=== PATIENT | female | born 1965 | race Caucasian/White ===

== ENCOUNTER 2016-06-10 16:01 | Inpatient (IN) | payer MEDICARE, MEDICAID ==
[~2016-06-10] VITALS: Ht 160 cm; Wt 120.5 kg
[~2016-06-10 16:01] MED LIST: ALBU8.5H4 IH; ALPR1TAB7 PO; CINA60TA PO; CLON1TAB PO; HYDR-656 PO; LANT500T PO; METO2.5T12 PO; MTH10T PO; NEPHVIT PO; ZYL100 PO
[2016-06-10 16:10] VITALS: BP 146/80; PULSE 79; RESP 16; O2SAT 100
[2016-06-10 17:36] LABS: BASOPHILS % (AUTO) 0.4 % (0-3); EOSINOPHILS % (AUTO) 3.7 % (0-5); MONOCYTES % (AUTO) 8.8 % (4-12); Mean Corpuscular Hemoglobin 27.9 pg (27.0-35.0); Mean Corpuscular Volume 84.7 fL (81-100); NEUTROPHILS % (AUTO) 63.3 % (40-74); Platelet Count 321 bil/L (150-400)
[2016-06-10 18:03] LABS: Magnesium 2.5 mg/dL (1.6-2.6)
--- NOTE | 2016-06-10 19:06 | ED.REPORT ---
HPI-General Illness Date of Service Jun 10, 2016 ED Provider: Dat Winn MD Patient is a 50 year old female with a history of ESRD on dialysis, hypertension , sleep apnea, and anxiety who presents to the ED after she developed diarrhea today, after feeling unwell since dialysis 5 days ago. She reports increased fatigue since that time, developing a mild cough, left ear pain, and a headache for the past few days. The patient states that she was last dialyzed on Monday, but she is meant to have it ,,. She chose not to attend dialysis on and due to her upper respiratory symptoms.. The patient was seen by a home health worker today, who told her to present to the ED since she appeared unwell. The patient is followed by Dr. Beck for nephrology, with Dr. Lagos serving as her primary care physician. Patient denies chest pain, shortness of breath, vomiting , runny nose, fever, or abdominal pain. Nursing Notes Stated Complaint: [facility] Chief Complaint: Female Abdominal Pain Nursing Notes Reviewed: Yes Allergies: Coded Allergies: codeine (Verified Allergy, Severe, RASH, HEADACHE, 03/20/15) hydrocodone (Verified Allergy, Severe, RASH, HEADACHE, 03/20/15) latex (Verified Allergy, Severe, RASH, HIVES, DIFFICULTY BREATHING, ) diclofenac sodium (Verified Allergy, Mild, diarrhea, vomiting, 03/20/15) Pork (Verified Allergy, Unknown, rash, headache, n/v, 03/20/15) colchicine (Verified Adverse Reaction, Severe, Diarrhea, N/V, 03/20/15) acetaminophen (Verified Adverse Reaction, Intermediate, Nausea, 06/10/16) Uncoded Allergies: EGGS (Allergy, Mild, rash, headache, n/v, 07/16/13) Scheduled Allopurinol (Allopurinol) 100 Mg Tablet 100 MG PO BID Alprazolam (Alprazolam) 1 Mg Tablet 3 MG PO MWF Cinacalcet HCl (Sensipar) 60 Mg Tablet 60 MG PO BID Clonazepam (Klonopin) 1 Mg Tablet 1 MG PO HS Lanthanum Carb Chew (Fosrenol Chew) 500 Mg Chew 500-1,500 MG PO TIDWM Methadone (Methadone) 10 Mg Tab 10 MG PO TID Metolazone (Metolazone) 2.5 Mg Tablet 10 MG PO BID Vitamin B Complex/Vit C (Gina-Theodora Tablet) 1 Tab Tab 1 TAB PO DAILY Scheduled PRN Albuterol HFA (Albuterol HFA) 8.5 Gm Hfa.aer.ad 1 PUFF IH Q4 PRN PRN For Shortness of Breath hydrOXYzine Hcl (HydrOXYzine Hcl) 25 Mg Tablet 25 MG PO TID PRN PRN For Itching General Time Seen by MD: 18:45 Chief Complaint Diarrhea, Not feeling well Hx Obtained From: Patient Arrived By: Ambulance Sudden in Onset?: No Onset Occurred: 9 - 12 hours ago Symptom Duration: Since onset Past Medical History Past Medical History 1. End-stage renal disease, on hemodialysis. 2. Chronic anemia likely secondary to underlying end-stage renal disease. 3. Hypertension. 4. Gout. 5. Obstructive sleep apnea (on continuous positive airway pressure). 6. Anxiety. 7. Renal osteodystrophy. 8. Asthma. Past Surgical History Left knee replacement Right hip replacement Left AV fistula Right AV fistula Bilateral carpel tunnel surgery Tubal ligation Left knee arthroscopy Nonfunctional arteriovenous fistula, anastomosis lesion, status post successful angioplasty Smoking History Never Smoker Social History Other Social History: Local resident Ambulatory Status Independent Review of Systems Full Review of Systems Constitutional: Reports: Fatigue, Denies: Fever Ears / Nose / Throat: Reports: Earache left, Nasal congestion Respiratory: Denies: Shortness of breath Cardiovascular: Denies: Chest pain GI: Reports: Diarrhea, Denies: Abdominal pain, Vomiting Complete sys rev & neg: except as marked. Physical Exam Vital Signs Vital Signs Date Time Temp Pulse Resp B/P Pulse Ox O2 Delivery O2 Flow Rate FiO2 06/10/16 21:05 88 20 147/85 98 Room Air 06/10/16 19:58 80 20 132/68 99 Room Air 06/10/16 16:10 36 79 16 146/80 100 Room Air Initial VS: Reviewed Head / Eyes: Atraumatic, Normocephalic, PERRL ENT: Conjunctiva normal, No scleral icterus Neck: Supple, Full range of motion Extremities: Vascular intact, Neuro intact, No swelling Skin: Warm, Dry, No cyanosis Neurologic: Alert, Oriented, Nonfocal Psychiatric: Mood/affect normal, Behavior normal, Normal thought content General/Constitutional: Awake, Alert, No acute distress Appearance / Presentation: Positive: Obese Head / Eyes: Normocephalic, PERRL, Conjunctiva NL ENT: Airway patent, Tympanic membs NL Respiratory / Chest: No respiratory distress, No rales, No rhonchi, No wheezing coarse breath sounds bilaterally Cardiovascular: Heart rate NL, Regular rhythm, No murmurs Abdomen: Soft, Non-tender, No guarding, No rebound Interpretation & Diagnostics Lab Results Interpretation Result Diagram: 06/10/16 1710 06/10/16 1930 Test 06/10/16 17:10 06/10/16 19:30 White Blood Count 8.1th/mm3 (3.8-10.1) Red Blood Count 3.80mil/mm3 (3.90-5.20) Hemoglobin 10.6g/dL (12.0-15.6) Hematocrit 32.2% (35.0-46.0) Mean Corpuscular Volume 84.7fL (81-100) Mean Corpuscular Hemoglobin 27.9pg (27.0-35.0) Mean Corpuscular Hemoglobin Concent 32.9% (32.0-37.0) Red Cell Distribution Width 14.1% (12.3-15.4) Platelet Count 321bil/L (150-400) Neutrophils (%) (Auto) 63.3% (40-74) Lymphocytes (%) (Auto) 23.2% (14-46) Monocytes (%) (Auto) 8.8% (4-12) Eosinophils (%) (Auto) 3.7% (0-5) Basophils (%) (Auto) 0.4% (0-3) Magnesium Level 2.5mg/dL (1.6-2.6) Total Bilirubin 0.2mg/dL (0.0-1.2) Aspartate Amino Transf (AST/SGOT) 19U/L (0-50) Alanine Aminotransferase (ALT/SGPT) 24U/L (0-32) Alkaline Phosphatase 283U/L (25-150) Total Protein 7.7g/dL (6.4-8.4) Albumin 3.8g/dL (3.4-5.0) Lipase 118U/L (13-60) Sodium Level 136mEq/L (134-144) Potassium Level 7.6mEq/L (3.5-5.2) Chloride Level 88mEq/L (97-108) Carbon Dioxide Level 19mmol/L (18-29) Blood Urea Nitrogen 94mg/dL (6-24) Creatinine 16.03mg/dL (0.57-1.00) Estimat Glomerular Filtration Rate 3mL/min (>59) Glucose Level 112mg/dL (60-99) Calcium Level 9.9mg/dL (8.5-10.1) ECG Interpretation ECG Interpretation: Normal sinus rhythm, rate of 78 Q waves in V1 no ST or T wave changes unchanged from prior EKG Time: 19:20 Interpreted by: ED physician X-Ray Chest Interpretation Chest Xray Interpretation: IMPRESSION: Source of cough is not found. Mildly reduced inspiratory volume. Dictated by: Bryan Bella M.D. on 06/10/2016 at 19:57 Approved by: Bryan Bella M.D. on 06/10/2016 at 19:57 Interpretation / Wet Read by: Interpret - Radiologist Re-Eval/Medical Decision Med Decision/Clinical Course 50-year-old female history of end-stage renal disease on MWF dialysis presenting with weakness 1 day. She reports prior URI symptoms earlier this week and therefore did not go to her dialysis on Monday. The URI symptoms have resolved. On arrival her potassium is 7.7. Repeat similar. No EKG changes. Discussed with nephrology who will dialyze urgently and requested calcium gluconate 1 g and insulin with dextrose which were given. Patient will be admitted to [facility]CC. Source of Hx: Old records Time of Eval: 21:00 Patient Status: Condition improved Re-Evaluation/Progress Note: Patient was informed that she will be admitted to the hospital for dialysis. Discussed lab, EKG, and chest x-ray. Patient understands and agrees with this plan. All questions were addressed. Consultation #1: Referral / Consult Name: Sanket Mensah MD Consulted With: Nephrology Call Returned at: 20:31 Hood Fitter: Will see patient, Agrees with eval, Agrees with plan Note: Spoke with Dr. Linares, nephrology, about the patient's case. She agrees with the plan to admit the patient to the hospital, to PCC. Start on Kayexalate, Calcium 1g, and insulin. Consultation #2: Referral / Consult Name: Abby Ross MD Consulted With: Hospitalist Call Returned at: 20:42 Hood Fitter: Will see patient, Agrees with eval, Agrees with plan, Accepts admit Note: Spoke with Dr. Ross, hospitalist, who agrees to accept admit. Counseled Regarding: Diagnosis, Lab results, Need for admission Discharge & Departure Primary Impression: Hyperkalemia Additional Impression: ESRD on dialysis Disposition: ADMITTED TO HOSPITAL Discharge Condition All VS Reviewed: Yes Condition: Stable Referrals: Dorothy Lagos MD (PCP) Hannah Beck MD Crit Care Except Billable Proc Time Spent: 30-74 minutes Services Performed: Patient management by me, Time spent at bedside, Reviewing test results, Reviewing imaging, Discussing patient care, Documentation in record, Time with fam/surrogate Scribe Attestation Portions of this note were transcribed by Allyson Walton. I, Dr. Winn personally performed the history, physical exam and medical decision-making; I reviewed and confirmed the accuracy of the information in the transcribed note. Signed by: Marcos Doyle, 06/10/2016 1949 copies to: Hannah Beck MD; Dorothy Lagos MD, Ben M MD Jun 10, 2016 19:06 Allyson Walton Jun 10, 2016 19:08
[2016-06-10 19:58] VITALS: BP 132/68; PULSE 80; RESP 20; O2SAT 99
--- NOTE | 2016-06-10 19:59 | DRSVH ---
PROCEDURE: X-RAY CHEST ONE VIEW, PORTABLE ([id number]) INDICATIONS: cough TECHNIQUE: One view of the chest was acquired. COMPARISON: [facility], , CHEST 1VW (PORTABLE), 07/16/2013, 11:44. FINDINGS: Surgical changes and devices: None. Lungs and pleura: No pleural effusions or pneumothorax. Lungs are clear. Mediastinum: Mediastinal contours appear normal. Heart size is normal. Bones and chest wall: No suspicious bony lesions. Overlying soft tissues appear unremarkable. IMPRESSION: Source of cough is not found. Mildly reduced inspiratory volume. Dictated by: Bryan Bella M.D. on 06/10/2016 at 19:57 Approved by: Bryan Bella M.D. on 06/10/2016 at 19:57
[2016-06-10] MEDS ORDERED: Calcium GLUCOnate 10% (Gm) 1 Gm/10 mL Inj IVPUSH PRN (20:40)
[2016-06-10] MEDS ORDERED: Insulin Human REGular-Omnicell 100 Unit/mL IV ONE (20:40)
[2016-06-10] MEDS ORDERED: Alum-Mag Hydrox-Simeth 30 mL Suspension PO PRN (20:45)
[2016-06-10] MEDS ORDERED: Ondansetron 2 mg/mL 2 mL Inj IVPUSH PRN (20:45)
[2016-06-10] MEDS ORDERED: Calcium GLUCOnate 10% 1 Gm/50 mL NS IV ONE ×2 (20:50)
[2016-06-10 21:05] VITALS: BP 147/85; PULSE 88; RESP 20; O2SAT 98
[2016-06-10 22:01] VITALS: BP 144/81; PULSE 87; RESP 20; O2SAT 96
[2016-06-10 22:04] VITALS: BP 153/90; PULSE 86
[2016-06-10] MEDS ORDERED: Albuterol-Ipratropium 3 mL Inhalation Solution NEB PRN (23:00)
--- NOTE | 2016-06-10 23:01 | PCM.HPMED ---
Subjective Date of Service Jun 10, 2016 Primary Provider: Admitting Physician: Abby Ross MD Primary Care Physician: Dorothy Lagos MD Attending Physician: Abby Ross MD Chief Complaint: Generalized weakness HISTORY was OBTAINED FROM PATIENT / MEDITECH NOTES History of present illness 50-year-old female, ESRD-voids average 2cup per day, diarrhea new onset today, skipped hemodialysis on Monday because of upper respiratory symptoms starting after monday HD including inner ear congestion/noise/nystagmus/cough, which are all resolving. Due to Ongoing fatigue, came to ER today. ongoing poor appetite. no n/v. no change in diet. + URI sick contacts. flu shot done this winter season. In the ER potassium 7.7, emergent hemodialysis now in the patel Review of Systems - none of the following - F/C/ dizziness / acid reflux / n/v / / bleeding/bruising / leg swelling / change in voiding / yeast infections / rash right hip pain prior hip replacement associated baseline cane Medication Allopurinol (Allopurinol) 100 Mg Tablet 100 MG PO BID Alprazolam (Alprazolam) 1 Mg Tablet 3 MG PO MWF Cinacalcet HCl (Sensipar) 60 Mg Tablet 60 MG PO BID Clonazepam (Klonopin) 1 Mg Tablet 1 MG PO HS Lanthanum Carb Chew (Fosrenol Chew) 500 Mg Chew 500-1,500 MG PO TIDWM Methadone (Methadone) 10 Mg Tab 10 MG PO TID Metolazone (Metolazone) 2.5 Mg Tablet 10 MG PO BID Vitamin B Complex/Vit C (Gina-Theodora Tablet) 1 Tab Tab 1 TAB PO DAILY Scheduled PRN Albuterol HFA (Albuterol HFA) 8.5 Gm Hfa.aer.ad 1 PUFF IH Q4 PRN PRN For Shortness of Breath hydrOXYzine Hcl (HydrOXYzine Hcl) 25 Mg Tablet 25 MG PO TID PRN PRN For Itching PMHx 1. End-stage renal disease, on hemodialysis. 2. Chronic anemia likely secondary to underlying end-stage renal disease. 3. Hypertension. 4. Gout. 5. Obstructive sleep apnea (on continuous positive airway pressure). 6. Anxiety. 7. Renal osteodystrophy. 8. Asthma. calciphylaxis Left knee replacement Right hip replacement Left AV fistula Right AV fistula Bilateral carpel tunnel surgery Tubal ligation Left knee arthroscopy Nonfunctional arteriovenous fistula, anastomosis lesion, status post successful angioplasty Smoking History Never Smoker FHX DM Allergies Coded Allergies: codeine (Verified Allergy, Severe, RASH, HEADACHE, 03/20/15) hydrocodone (Verified Allergy, Severe, RASH, HEADACHE, 03/20/15) latex (Verified Allergy, Severe, RASH, HIVES, DIFFICULTY BREATHING, ) diclofenac sodium (Verified Allergy, Mild, diarrhea, vomiting, 03/20/15) Pork (Verified Allergy, Unknown, rash, headache, n/v, 03/20/15) colchicine (Verified Adverse Reaction, Severe, Diarrhea, N/V, 03/20/15) acetaminophen (Verified Adverse Reaction, Intermediate, Nausea, 06/10/16) Uncoded Allergies: EGGS (Allergy, Mild, rash, headache, n/v, 07/16/13) PMH Social History Hx Alcohol Use: No Hx Substance Use: No Hx Tobacco Use: No Smoking Status: Never Smoker Exam Vital Signs Vital Sign - Last Date Time Temp Pulse Resp B/P Pulse Ox O2 Delivery O2 Flow Rate FiO2 06/10/16 22:01 36.9 87 20 144/81 96 Room Air Lab and Diagnostics Labs Exam on admission 2L NC while on HD NAD A and O x 3 mood affect WNL NC/AT no icterus no injected eyes EOMI PERRL /no pharyngeal lesions/ no oral lesions / hearing intact Supple neck CTAB equal chest rise / no accessory muscle use / speaks in full sentences / no rrw RRR S1 S2 / no mrg / 2+ radial pulses Soft nt nd + BS no hepatosplenomegaly trace crocker edema no cyanosis no ecchymosis of lower extremities No rash / no jaundice WHITEHEAD calciphylaxis felt on lateral thigh and pannus EKG SR flipped T in Right leads unchanged from 06/22/2015 CXR neg acute findings stool cx pending respiratory PCR/strep screen pending Result Diagram: 06/10/16 1710 06/10/16 1930 Assessment & Plan Active issues and reason for admission generalized weakness due to acute kidney injury on ESRD and diarrhea w/ preceding resolving bronchitis w/ resolved inner ear symptoms --augmentin, penidng strep/flu screen ESRD w/ hyperkalemia --emergent HD Diarrhea --pending stool culture Chronic issues known prior to admission, present on admission 1. End-stage renal disease, on hemodialysis. 2. Chronic anemia likely secondary to underlying end-stage renal disease. 3. Hypertension. 4. Gout. 5. Obstructive sleep apnea (on continuous positive airway pressure). 6. Anxiety. 7. Renal osteodystrophy. 8. Asthma. anxiety w/ HD intermittent chronic pain from calciphylaxis/right hip --prn duoneb/resume home meds Diet renal DVT prophylaxis heparin ambulate Code full Disposition inpateint Assessment and plan were discussed with patient VTE Mechanical Devices: Intermittant Pneumatic Abby Nicole MD Jun 10, 2016 23:01 Assessment & Plan Active issues and reason for admission generalized weakness due to acute kidney injury on ESRD and diarrhea w/ preceding resolving bronchitis w/ resolved inner ear symptoms --augmentin, penidng strep/flu screen ESRD w/ hyperkalemia --emergent HD Diarrhea --pending stool culture Chronic issues known prior to admission, present on admission 1. End-stage renal disease, on hemodialysis. 2. Chronic anemia likely secondary to underlying end-stage renal disease. 3. Hypertension. 4. Gout. 5. Obstructive sleep apnea (on continuous positive airway pressure). 6. Anxiety. 7. Renal osteodystrophy. 8. Asthma. anxiety w/ HD intermittent --prn duoneb/resume home meds Diet renal DVT prophylaxis heparin ambulate Code full Disposition inpateint Assessment and plan were discussed with patient VTE Mechanical Devices: Intermittant Pneumatic CD Abby Ross MD Jun 10, 2016 23:01
--- NOTE | 2016-06-11 | NUR ---
NEW ADMIT/DIALYSIS [facility] @ 2200 for immediate dialysis. Report given from ED. Pt had a potassium of 7.7 and a BUN of 94 in the ED. Admit questions were completed, nasal swab was sent to lab for influenza. Pt's vitals were stable, on RA sating high 90's. Pt A&Ox3, independent in the room, tele SR 80's, SL 20G in R wrist, which is patent. 2 hour dialysis was done with no issues. Pt resting comfortably with no complaints.
--- NOTE | 2016-06-11 00:26 | NUR ---
Dialysis note: 2 hrs tx. 3000 ml net UF per patient's request. Left upper arm fistula. Pls see DTR for VS details. Qb 500. No heparin given. O2 @ 2L via NC on. Tolerated tx, slept at intervals. Fistula needle sites clotted within 10 min. Report given to Tali GARCIA.
[2016-06-11] MEDS: Amoxicillin-Clav 875-125 mg Tablet PO SCH ×2 (00:33→08:03)
[2016-06-11 01:23] VITALS: BP 132/88; PULSE 90; RESP 20; O2SAT 94
[2016-06-11 03:30] LABS: BASOPHILS % (AUTO) 0.2 % (0-3); EOSINOPHILS % (AUTO) 4.2 % (0-5); MONOCYTES % (AUTO) 10.5 % (4-12); Mean Corpuscular Volume 83.6 fL (81-100); NEUTROPHILS % (AUTO) 60.8 % (40-74); Platelet Count 317 bil/L (150-400)
[2016-06-11 03:44] LABS: Phosphorus 9.4 mg/dL (2.5-4.9)
--- NOTE | 2016-06-11 04:09 | NUR ---
LAB VALUES Pt had morning labs that came back with a critical creatinine of 10.65, MD notified. No new orders, pt had dialysis earlier in the evening and had creatinine levels of 16.03 before dialysis. Vitals stable, pt A&Ox3, no other issues noted at this time.
[2016-06-11 04:18] VITALS: BP 144/71; PULSE 93; RESP 22; O2SAT 96
[2016-06-11 05:01] VITALS: PULSE 87
[2016-06-11 07:54] VITALS: BP 151/95; PULSE 90; RESP 19; O2SAT 97
[2016-06-11] MEDS: Lanthanum Carbonate 500 mg Chewable Tablet PO SCH ×3 (08:04→14:32)
[2016-06-11 10:05] VITALS: PULSE 95
--- NOTE | 2016-06-11 11:52 | NUR ---
Headache/ dialysis Patient complained of head fullness/ache 4-5/10 this morning. Patient was medicated with Tylenol 975 mg PO x1 and symptoms resolved within 30min. Consulted with dialysis Dorothy- patient was transported [place] [facility] [place] this morning. MD was made aware and will consider discharging patient home later today if stable.
--- NOTE | 2016-06-11 14:02 | PCM.DIMED ---
TYRELL OMER DO 06/11/16 1402: Discharge Instructions Date of Service Jun 11, 2016 Dates of Hospitalization Jun 10, 2016 at 21:05 Discharge Diagnosis Discharge Diagnosis 1. Hyperkalemia, present on admission, resolved. 2. End stage renal disease, present on admission, chronic. 3. Diarrhea, present on admission, resolved. 4. Hypertension, present on admission, chronic. 5. Gout, present on admission, chronic. 6. Obstructive sleep apnea, present on admission, chronic. 7. Anxiety, present on admission, chronic. 8. Calciphylaxis, present on admission, chronic. Medication Instructions No changes to your home medication regimen were changed during hospitalization. Diet Renal Diet Activity No restrictions Call your provider Fever or Chills, Shortness of breath, Bleeding, Chest pain, Excessive diarrhea Patient Instructions - Please be sure to make your next dialysis appointment on Monday. - Your symptoms have all resolved at this time and are likely secondary to missing your dialysis appointment. - Follow up with Dr. Lagos in 1 week. - Follow up with Dr. Beck as scheduled. Follow-up Provider: Dorothy Lagos MD Follow-up with PCP in: 1 week Provider: Hannah Beck MD Follow-up in: Other (As scheduled) Trae Chaidez MD 06/11/16 2107: Discharge Instructions Attending's Statement The patient was seen and examined together with Dr. Omer on 06/11/2016 and I agree with the history, exam and plan as outlined in the note above. . TYRELL OMER DO Jun 11, 2016 14:02 Trae Chaidez MD Jun 11, 2016 21:07
[2016-06-11] MEDS ORDERED: Pantoprazole 20 mg ER24 Tablet PO ONE (14:30)
--- NOTE | 2016-06-11 14:47 | CONS ---
[address] [address] CONSULTATION REPORT PATIENT: ELIZABETH TERAN : 1965 MR#: [id number] ADMIT: 06/10/2016 JOB ID: [id number] DATE OF SERVICE: 06/11/2016 NEPHROLOGY CONSULTATION: REQUESTING PHYSICIAN: Dr. Abby Ross REASON FOR CONSULTATION: Management of hyperkalemia and end-stage renal failure. CHIEF COMPLAINT: Generalized weakness. PRESENT ILLNESS: This is a 50-year-old lady with significant past medical history of end-stage renal disease on hemodialysis every Monday, Monday and Monday, hypertension, obesity, anemia in chronic kidney disease and calciphylaxis presented to the hospital with a complaint of malaise. The patient started having flu-like symptoms including body pain, dry cough and diarrhea one week prior to the admission. She has missed dialysis on Monday and Monday. She came to the hospital with a complaint of body weakness. The patient did receive the flu vaccine for this season. She has not seen any physician during her sickness at this time. She came to the emergency department and requested for dialysis. Her initial blood work showed a potassium of 7.7, the repeat one was 7.6, renal was consulted to arrange for urgent dialysis given severely high potassium level. The patient received dialysis last night for two hours. A repeat potassium came down to 5.0. Currently the patient on the hemodialysis. We are running 1 potassium bath. He has no chest pain. No shortness of breath at the moment. She has felt better. She no longer has diarrhea. PAST MEDICAL HISTORY: 1. End-stage renal disease, on hemodialysis every Monday, Monday, and Monday x6 years. He is a patient of Dr. Kohler. 2. Anemia in chronic kidney disease. 3. Renal osteodystrophy. 4. Gout. 5. Sleep apnea. 6. Calciphylaxis. PAST SURGICAL HISTORY: 1. Status post left knee replacement. 2. Status post left hip replacement. 3. Status post kidney biopsy. 4. Status post multiple AV fistula creations. 5. Bilateral carpal tunnel surgery. 6. Tubal ligation. FAMILY HISTORY: Positive for diabetes. SOCIAL HISTORY: Denies current use of alcohol, tobacco or illicit drugs. ALLERGIES: PORK, ACETAMINOPHEN, CODEINE, COLCHICINE, DICLOFENAC, HYDROCODONE, LATEX. REVIEW OF SYSTEMS: Constitutional: No fever. Positive for chills and body aches. HEENT: No headaches. No blurry vision. Cardiovascular: No chest pain or shortness of breath. Pulmonary: Positive for dry cough. No hemoptysis. GI: Poor appetite. No nausea, vomiting. : No dysuria. The patient makes urine, one cup a day. Skin: No rashes. No excoriation. Hematology: No active bleeding. PHYSICAL EXAM: Vitals: Temperature 36.5, pulse 90, respiratory rate 19, blood pressure 151/95, O2 sat 97% on room air. General appearance: Awake, alert and oriented x3. No acute distress. HEENT: Mild pallor. No jaundice. No JVD. No lymphadenopathy. No thyroid enlargement. Heart: Regular rhythm. Normal S1, S2. No murmurs, rubs or gallops. Lungs: Clear to auscultation bilaterally. Abdomen: Soft, obese, active bowel sounds. Nontender, nondistended. No hepatosplenomegaly. Extremities: No edema, cyanosis or clubbing of fingers. Left AV fistula with good thrill. LABORATORY: Sodium 136, potassium 5.0, chloride 90, bicarbonate 23, BUN 15, creatinine 10.65, calcium 10.3, phosphorus 9.4. ASSESSMENT: 1. Hyperkalemia. The patient received hemodialysis last night. Repeat potassium came down to 5.0. The patient is now on another dialysis. 2. End-stage renal disease, on hemodialysis every Monday, Monday and Monday. She missed dialysis x2 last week given history of viral symptoms. 3. Hyperphosphatemia, hypercalcemia with history of calciphylaxis. 4. Continue current phosphate binder and Sensipar. The patient will follow up with her industrial engineering technologist outpatient to readjust her phosphate binder and to monitor PTH level. 5. Hypertension. 6. Obesity. 7. Sleep apnea. PLAN: Per renal standpoint, if patient is stable after hemodialysis, she can be discharged home. Thank you for the consultation.
--- NOTE | 2016-06-11 14:58 | NUR ---
Evaluation completed. Please go to "Notes" then click on "Assessments and Notes" (bottom left corner of screen). Then select appropriate discipline tab on top of screen.
--- NOTE | 2016-06-11 15:51 | NUR ---
Dialysis note 3 hr HD tx. 1 k bath. 2 15 g buttonhole needles to ANSHU fistula. QB decreased thru tx for increasing venous pressures. See DTR for complete vitals. Pt rested thru tx. without complaints. Gauze only and pt held sites post tx. Returned to floor stable.
--- NOTE | 2016-06-11 16:29 | NUR ---
Heart burn/discharge After dialysis upon returning to her room patient stated having heart burn. She stated that she gets heart sanchez often and takes Prilosec for it- MD was made aware and ordered Protonix PO one dose. Med was given and patient stated 20min after that the discomfort was resolving. Patient was also offered an afternoon snack witch help and after eating patient state that the symptoms of heart burn resolved. Patient was discharged home in stable condition. Patient verbalized understanding of verbal and written discharge home instructions regarding medications follow up appointments, dialysis appointment on Monday06-13-16 and the importance of keeping her dialysis schedule without skipping appointments, general s/s of hyperkalemia and symptom to seek immediate medical care. Right wrist saline lock was removed intact prior to discharge. Patient was transferred to her friends car by wheelchair and accompanied by staff.
--- NOTE | 2016-06-12 16:39 | PCM.DC.MED ---
Discharge Summary Date of Service Jun 12, 2016 Dates of Hospitalization Date of Hospital Admission Jun 10, 2016 at 21:05 Date of Discharge: Jun 11, 2016 Providers: Admitting Physician: Abby Ross MD Primary Care Physician: Dorothy Lagos MD Attending Physician: Abby Ross MD Diagnosis at Time of Discharge Diagnosis at Time of Discharge 1. Hyperkalemia, present on admission, resolved. 2. End stage renal disease, present on admission, chronic. 3. Diarrhea, present on admission, resolved. 4. Hypertension, present on admission, chronic. 5. Gout, present on admission, chronic. 6. Obstructive sleep apnea, present on admission, chronic. 7. Anxiety, present on admission, chronic. 8. Calciphylaxis, present on admission, chronic. Consultations Dr. Mensah - Hooker On Brief History Per Dr. Mensah's H&P: This is a 50-year-old lady with significant past medical history of end-stage renal disease on hemodialysis every Monday, Monday and Monday, hypertension, obesity, anemia in chronic kidney disease and calciphylaxis presented to the hospital with a complaint of malaise. The patient started having flu-like symptoms including body pain, dry cough and diarrhea one week prior to the admission. She has missed dialysis on Monday and Monday. She came to the hospital with a complaint of body weakness. The patient did receive the flu vaccine for this season. She has not seen any physician during her sickness at this time. She came to the emergency department and requested for dialysis. Her initial blood work showed a potassium of 7.7, the repeat one was 7.6, renal was consulted to arrange for urgent dialysis given severely high potassium level. The patient received dialysis last night for two hours. A repeat potassium came down to 5.0. Currently the patient on the hemodialysis. We are running 1 potassium bath. She has no chest pain. No shortness of breath at the moment. She has felt better. She no longer has diarrhea. Hospital Course 1. Hyperkalemia, present on admission, resolved. - Potassium on admission 7.9. - No EKG changes. - Received urgent dialysis. - Potassium normalized. 2. End stage renal disease, present on admission, chronic. - Missed two dialysis sessions. - BUN and Creatinine elevated above baseline. - Urgent dialysis as above. - Nephrology followed. Appreciated time and expertise. 3. Diarrhea, present on admission, resolved. 4. Hypertension, present on admission, chronic. - Continued home medication regimen. 5. Gout, present on admission, chronic. - Continued home medication regimen. 6. Obstructive sleep apnea, present on admission, chronic. - Monitored on continuous pulse oximetry. - Supplemental oxygen as needed. 7. Anxiety, present on admission, chronic. 8. Calciphylaxis, present on admission, chronic. Exam Vital Signs (Last) Date Time Temp Pulse Resp B/P Pulse Ox O2 Delivery O2 Flow Rate FiO2 06/11/16 10:05 95 06/11/16 07:54 36.5 19 151/95 97 Room Air Exam General: No acute distress. Well-developed, well-nourished, appropriately interactive HEENT: Normocephalic, atraumatic. External ears without defect. Pupils equal, round, and reactive to light and accommodation. Oral mucosa moist. Neck: Supple with full range of motion. No jugular venous distension. No bruits. No lymphadenopathy or thyromegaly. Cardiovascular: Regular rate and rhythm with no murmurs, rubs, or gallops appreciated Pulmonary: Clear to auscultation bilaterally. Normal respiratory effort with no use of accessory muscles. Abdomen: Bowel tones present. Obese. Soft, mild tenderness to palpation diffusely, nondistended. No hepatosplenomegaly or masses appreciated. Extremities: Trace pretibial edema. Left AV fistula with thrill. No clubbing, cyanosis, or lymphadenopathy appreciated. Neurological: Cranial nerves grossly intact. Normal muscle strength, tone, and bulk. Reflexes, coordination, and sensory function within normal limits. No known gait impairment. Psychiatric: Normal mood and affect. Alert and oriented to person, place, and time. Test 06/10/16 17:10 06/10/16 19:30 06/11/16 02:51 Magnesium Level 2.5mg/dL (1.6-2.6) Total Bilirubin 0.2mg/dL (0.0-1.2) Aspartate Amino Transf (AST/SGOT) 19U/L (0-50) Alanine Aminotransferase (ALT/SGPT) 24U/L (0-32) Alkaline Phosphatase 283U/L (25-150) Total Protein 7.7g/dL (6.4-8.4) Lipase 118U/L (13-60) Estimat Glomerular Filtration Rate 3mL/min (>59) White Blood Count 6.4th/mm3 (3.8-10.1) Red Blood Count 3.54mil/mm3 (3.90-5.20) Hemoglobin 9.9g/dL (12.0-15.6) Hematocrit 29.6% (35.0-46.0) Mean Corpuscular Volume 83.6fL (81-100) Mean Corpuscular Hemoglobin 28.0pg (27.0-35.0) Mean Corpuscular Hemoglobin Concent 33.4% (32.0-37.0) Red Cell Distribution Width 14.2% (12.3-15.4) Platelet Count 317bil/L (150-400) Neutrophils (%) (Auto) 60.8% (40-74) Lymphocytes (%) (Auto) 24.0% (14-46) Monocytes (%) (Auto) 10.5% (4-12) Eosinophils (%) (Auto) 4.2% (0-5) Basophils (%) (Auto) 0.2% (0-3) Sodium Level 136mEq/L (134-144) Potassium Level 5.0mEq/L (3.5-5.2) Chloride Level 90mEq/L (97-108) Carbon Dioxide Level 23mmol/L (18-29) Blood Urea Nitrogen 52mg/dL (6-24) Creatinine 10.65mg/dL (0.57-1.00) Glucose Level 106mg/dL (60-99) Calcium Level 10.3mg/dL (8.5-10.1) Phosphorus Level 9.4mg/dL (2.5-4.9) Albumin 3.4g/dL (3.4-5.0) Discharge Medications Discharge Medications Allopurinol (Allopurinol) 100 Mg Tablet 100 MG PO BID (Reported) Alprazolam (Alprazolam) 1 Mg Tablet 3 MG PO MWF (Reported) Cinacalcet HCl (Sensipar) 60 Mg Tablet 60 MG PO BID (Reported) Clonazepam (Klonopin) 1 Mg Tablet 1 MG PO HS (Reported) Lanthanum Carb Chew (Fosrenol Chew) 500 Mg Chew 500-1,500 MG PO TIDWM (Reported ) Methadone (Methadone) 10 Mg Tab 10 MG PO TID (Reported) Metolazone (Metolazone) 2.5 Mg Tablet 10 MG PO BID (Reported) Vitamin B Complex/Vit C (Gina-Theodora Tablet) 1 Tab Tab 1 TAB PO DAILY (Reported) As needed Albuterol HFA (Albuterol HFA) 8.5 Gm Hfa.aer.ad 1 PUFF IH Q4 PRN PRN For Shortness of Breath (Reported) hydrOXYzine Hcl (HydrOXYzine Hcl) 25 Mg Tablet 25 MG PO TID PRN PRN For Itching (Reported) Additional med instructions No changes to your home medication regimen were changed during hospitalization. Followup Plan Discharge Diet: Renal Diet Discharge Activity: No restrictions Patient Instructions - Please be sure to make your next dialysis appointment on Monday. - Your symptoms have all resolved at this time and are likely secondary to missing your dialysis appointment. - Follow up with Dr. Lagos in 1 week. - Follow up with Dr. Beck as scheduled. Follow-up Provider: Dorothy Lagos MD Follow-up with PCP in: 1 week Provider: Hannah Beck MD Follow-up in: Other (As scheduled) Time spent Greater than 30 minutes was spent in preparation of discharge and greater than 50%of that time was dedicated to patient counseling and coordination of care. . Attending Statement The patient was seen and examined together with Dr. Meyer on 06/12/2016 and I agree with the history, exam and plan as outlined in the note above. . copies to: Hannah Beck MD; Dorothy Lagos MD, BETHANY A DO Jun 12, 2016 16:34 Trae Chaidez MD Jun 12, 2016 18:17
== END 2016-06-11 15:54 | disposition home or self-care (01) | DRG 640 ==
LOC: SED 16:01 → PCC 21:05
PROVIDERS: ADMIT Urology; ATTEND Urology
PROC: 5A1D60Z (ICD-10-PCS; principal; 2016-06-10)
DX: E87.5 Hyperkalemia (principal); N18.6 End stage renal disease; I12.0 Hypertensive chronic kidney disease with stage 5 chronic kidney disease or end stage renal disease; F41.9 Anxiety disorder, unspecified; M10.9 Gout, unspecified; D63.1 Anemia in chronic kidney disease; E83.59 Other disorders of calcium metabolism; G47.33 Obstructive sleep apnea (adult) (pediatric); R19.7 Diarrhea, unspecified; Z99.2 Dependence on renal dialysis; Z79.51 Long term (current) use of inhaled steroids

== ENCOUNTER 2016-06-29 11:48 | Emergency (ER) | payer MEDICARE, MEDICAID ==
[~2016-06-29] VITALS: Ht 160 cm; Wt 117.5 kg
[2016-06-29 11:50] VITALS: BP 117/75; PULSE 74; RESP 16; O2SAT 100
--- NOTE | 2016-06-29 11:54 | ED.REPORT ---
HPI-Dyspnea / Wheezing Date of Service Jun 29, 2016 ED Provider: Dr. Fox Pt is a 50 y/o female w/ a hx of ESRD on hemodialysis, HTN, presenting to the ED via EMS c/o flu-like symptoms onset 6 days ago. She c/o cough, sore throat, myalgia, chills, orthostatic lightheadedness, headache, diarrhea. Pt denies nausea, vomiting, fever, fluid overload. Her son was an Influenza contact. She has not been dialyzed for 7 days. She called EMS today because of generalized weakness. Nursing Notes Stated Complaint: COUGH Chief Complaint: FLU/Cold Symptoms Nursing Notes Reviewed: Yes Allergies: Coded Allergies: codeine (Verified Allergy, Severe, RASH, HEADACHE, 06/29/16) hydrocodone (Verified Allergy, Severe, RASH, HEADACHE, 06/29/16) latex (Verified Allergy, Severe, RASH, HIVES, DIFFICULTY BREATHING, 06/29/16 ) diclofenac sodium (Verified Allergy, Mild, diarrhea, vomiting, 06/29/16) Pork (Verified Allergy, Unknown, rash, headache, n/v, 06/29/16) colchicine (Verified Adverse Reaction, Severe, Diarrhea, N/V, 06/29/16) acetaminophen (Verified Adverse Reaction, Intermediate, Nausea, 06/29/16) Uncoded Allergies: EGGS (Allergy, Mild, rash, headache, n/v, 07/16/13) Scheduled Allopurinol (Allopurinol) 100 Mg Tablet 100 MG PO BID Alprazolam (Alprazolam) 1 Mg Tablet 3 MG PO MWF Cinacalcet HCl (Sensipar) 60 Mg Tablet 60 MG PO BID Clonazepam (Klonopin) 1 Mg Tablet 1 MG PO HS Lanthanum Carb Chew (Fosrenol Chew) 500 Mg Chew 500-1,500 MG PO TIDWM Methadone (Methadone) 10 Mg Tab 10 MG PO TID Metolazone (Metolazone) 2.5 Mg Tablet 10 MG PO BID Vitamin B Complex/Vit C (Gina-Theodora Tablet) 1 Tab Tab 1 TAB PO DAILY Scheduled PRN Albuterol HFA (Albuterol HFA) 8.5 Gm Hfa.aer.ad 1 PUFF IH Q4 PRN PRN For Shortness of Breath hydrOXYzine Hcl (HydrOXYzine Hcl) 25 Mg Tablet 25 MG PO TID PRN PRN For Itching General Time Seen by MD: 11:53 Chief Complaint Other (flu-like) Hx Obtained From: Patient, EMS Arrived By: Ambulance Sudden in Onset?: No Onset Occurred: 6 days ago Symptom Duration: Since onset Severity: Current: No pain currently Severity: Maximum: No pain Similar Sx Previous: No Past Medical History Past Medical History 1. End-stage renal disease, on hemodialysis. 2. Chronic anemia likely secondary to underlying end-stage renal disease. 3. Hypertension. 4. Gout. 5. Obstructive sleep apnea (on continuous positive airway pressure). 6. Anxiety. 7. Renal osteodystrophy. 8. Asthma. Past Surgical History Left knee replacement Right hip replacement Left AV fistula Right AV fistula Bilateral carpel tunnel surgery Tubal ligation Left knee arthroscopy Nonfunctional arteriovenous fistula, anastomosis lesion, status post successful angioplasty Smoking History Never Smoker Social History Other Social History: Local resident Ambulatory Status Independent Review of Systems Constitutional: Reports: Chills, Weakness - generalized, Denies: Fever Ears / Nose / Throat: Reports: Sore throat Respiratory: Reports: Non-productive cough, Denies: Shortness of breath Cardiovascular: Denies: Chest pain, Edema Musculoskeletal: Reports: Myalgia Complete sys rev & neg: except as marked. GI: Reports: Diarrhea, Denies: Abdominal pain, Nausea, Vomiting Neurologic: Reports: Headache, Lightheaded Physical Exam Initial Vital Signs Vital Signs (First) Date Time Temp Pulse Resp B/P Pulse Ox O2 Delivery O2 Flow Rate FiO2 06/29/16 11:50 36.6 74 16 117/75 100 Room Air Initial VS: Reviewed, Vital signs normal Head / Eyes: Atraumatic, Normocephalic, PERRL ENT: Mucous membranes moist, Conjunctiva normal, No scleral icterus Abdomen / GI: Soft, Non-tender, No guarding, No rebound, No distention Extremities: Vascular intact, Neuro intact, No swelling, No tenderness Skin: Warm, Dry, No cyanosis Neurologic: Alert, Oriented, Nonfocal Psychiatric: Mood/affect normal, Behavior normal, Normal thought content General/Constitutional: Awake, Alert, No acute distress, Cooperative, Not toxic appearing Appearance / Presentation: Positive: Obese No signs of fluid overload Neck: Atraumatic, Supple, No meningismus, Full range of motion Respiratory / Chest: Atraumatic, Breath sounds NL, Breath sounds = bilat, No respiratory distress, No rales, No rhonchi, No wheezing, No retractions, No stridor, No chest tenderness, No chest wall deformity, No crepitus Cardiovascular: Heart rate NL, Regular rhythm, Heart sounds NL, No gallop, No murmurs, No rubs, Cap refill not delayed, Peripheral circulation NL Interpretation & Diagnostics Lab Results Interpretation Result Diagram: 06/29/16 1150 06/29/16 1150 Test 06/29/16 11:50 White Blood Count 6.2th/mm3 (3.8-10.1) Red Blood Count 3.73mil/mm3 (3.90-5.20) Hemoglobin 10.4g/dL (12.0-15.6) Hematocrit 31.2% (35.0-46.0) Mean Corpuscular Volume 83.6fL (81-100) Mean Corpuscular Hemoglobin 27.9pg (27.0-35.0) Mean Corpuscular Hemoglobin Concent 33.3% (32.0-37.0) Red Cell Distribution Width 14.3% (12.3-15.4) Platelet Count 294bil/L (150-400) Neutrophils (%) (Auto) 59.0% (40-74) Lymphocytes (%) (Auto) 24.0% (14-46) Monocytes (%) (Auto) 11.2% (4-12) Eosinophils (%) (Auto) 5.0% (0-5) Basophils (%) (Auto) 0.5% (0-3) Sodium Level 134mEq/L (134-144) Potassium Level 6.5mEq/L (3.5-5.2) Chloride Level 83mEq/L (97-108) Carbon Dioxide Level 19mmol/L (18-29) Blood Urea Nitrogen 93mg/dL (6-24) Creatinine 17.46mg/dL (0.57-1.00) Estimat Glomerular Filtration Rate 3mL/min (>59) Glucose Level 107mg/dL (60-99) Calcium Level 10.1mg/dL (8.5-10.1) Magnesium Level 2.1mg/dL (1.6-2.6) Total Bilirubin 0.2mg/dL (0.0-1.2) Aspartate Amino Transf (AST/SGOT) 14U/L (0-50) Alanine Aminotransferase (ALT/SGPT) 15U/L (0-32) Alkaline Phosphatase 259U/L (25-150) Total Protein 7.1g/dL (6.4-8.4) Albumin 3.5g/dL (3.4-5.0) Re-Eval/Medical Decision Source of Hx: Old records, EMS Re-Evaluation/Progress : Time of Eval: 12:47 Re-Evaluation/Progress Note: Pt rechecked. Kidney center was able to be contacted. They have her scheduled for dialysis at 17:30 today. She will be able to make the appointment. Counseled Regarding: Diagnosis, Lab results, Need for follow-up, When/why to return to ED Discharge & Departure Impression: Primary Impression: Influenza Additional Impressions: Hyperkalemia Renal failure Disposition: Home Discharge Condition All VS Reviewed: Yes Condition: Stable Patient Instructions: Influenza (DC) Additional Instructions: You have an appointment at dialysis today upon departing the emergency department. Fluids and rest Tylenol and ibuprofen are the treatments to help with your flu-like symptoms. Follow up right away if you develop severe shortness of breath or any other severe or worsening symptoms. Referrals: Dorothy Lagos MD (PCP) Scribe Attestation Portions of this note were transcribed by Bharath Agudelo. I, Dr. Fox personally performed the history, physical exam and medical decision-making; I reviewed and confirmed the accuracy of the information in the transcribed note. Signed by Marcos Barraza, 06/29/16 - 1300 copies to: Dorothy Lagos MD, Kirk H MD Jun 29, 2016 11:54 BHARATH AGUDELO Jun 29, 2016 12:07
[2016-06-29 12:13] LABS: BASOPHILS % (AUTO) 0.5 % (0-3); MONOCYTES % (AUTO) 11.2 % (4-12); Mean Corpuscular Hemoglobin 27.9 pg (27.0-35.0); Mean Corpuscular Volume 83.6 fL (81-100); Platelet Count 294 bil/L (150-400)
[2016-06-29 12:19] VITALS: BP 122/68; PULSE 73; RESP 18; O2SAT 100
[2016-06-29 12:28] LABS: Magnesium 2.1 mg/dL (1.6-2.6)
[2016-06-29 13:12] VITALS: BP 137/68; PULSE 73; RESP 18; O2SAT 100
--- NOTE | 2016-06-29 13:29 | DRSVH ---
PROCEDURE: X-RAY CHEST ONE VIEW, PORTABLE ([id number]) INDICATIONS: cough TECHNIQUE: One view of the chest was acquired. COMPARISON: [facility], CR, XR CHEST 1VW (PORTABLE), 06/10/2016, 19:06. FINDINGS: Surgical changes and devices: None. Lungs and pleura: No pleural effusions or pneumothorax. Lungs are clear. Mediastinum: Mediastinal contours appear normal. Heart size is enlarged. Bones and chest wall: No suspicious bony lesions. Overlying soft tissues appear unremarkable. IMPRESSION: No acute cardiopulmonary disease. Dictated by: Denzel Kauffman Charo Interpreted: Myrna Padgett MD on 06/29/2016 at 13:28 Transcribed by: DAKOTA on 06/29/2016 at 13:28 Approved by: Myrna Padgett M.D. on 06/29/2016 at 14:52
== END 2016-06-29 13:13 | disposition home or self-care (01) ==
LOC: EDBD 11:48 → SED 11:48
DX: J10.1 Influenza due to other identified influenza virus with other respiratory manifestations (principal); E87.5 Hyperkalemia; I12.0 Hypertensive chronic kidney disease with stage 5 chronic kidney disease or end stage renal disease; N18.6 End stage renal disease; J45.909 Unspecified asthma, uncomplicated; Z87.39 Personal history of other diseases of the musculoskeletal system and connective tissue; Z79.51 Long term (current) use of inhaled steroids; Z91.012 Allergy to eggs; Z88.6 Allergy status to analgesic agent; Z88.5 Allergy status to narcotic agent; Z99.2 Dependence on renal dialysis

== ENCOUNTER 2016-07-17 10:20 | Inpatient (IN) | payer MEDICARE, MEDICAID ==
[2016-07-17] VITALS (9 sets, daily range): BP systolic 120–154; BP diastolic 65–80; PULSE 106–115; RESP 19–34; O2SAT 96–100
[~2016-07-17] VITALS: Ht 160 cm; Wt 119.5 kg
--- NOTE | 2016-07-17 10:43 | ED.REPORT ---
HPI-Trauma Minor / Fall Date of Service Jul 17, 2016 ED Provider: Aramis Ceron MD Pt is a 50 y.o. female with ESRD on hemodialysis, HTN, and asthma who presents to the ED via EMS c/o weakness onset 4 days ago. Pt states that 4 days ago she was sitting and attempted to shift her weight forward and she heard a crunch from her left hip and experienced severe pain and swelling. She reports then injuring her right elbow 3 days ago while attempting to sit up from a supine position, when she pulled herself up she claims her elbow popped and "twisted in weird ways". She claims the same thing happened to her left elbow prior to arrival. Pt states that she has been homeless and was staying in her van before getting a motel room several days ago. She reports decreased movement due to both her living situation and weakness. Pt is currently on hemodialysis and is scheduled for every 2 days but has not received treatment in 10-12 days due to homelessness. She reports intermittent mid-sternal chest pain typically lasting no longer than 20 minutes and present upon arrival to ED, nausea, SOB, orthopnea , and 2 episodes of diarrhea onset this morning. She denies fevers. Pt states that she was too weak to even administer her inhaler. Nursing Notes Stated Complaint: GL FALL Chief Complaint: General Complaint Nursing Notes Reviewed: Yes ([employer], [employer] not reconciled) Allergies: Coded Allergies: codeine (Verified Allergy, Severe, RASH, HEADACHE, 06/29/16) hydrocodone (Verified Allergy, Severe, RASH, HEADACHE, 06/29/16) latex (Verified Allergy, Severe, RASH, HIVES, DIFFICULTY BREATHING, 06/29/16 ) diclofenac sodium (Verified Allergy, Mild, diarrhea, vomiting, 06/29/16) Pork (Verified Allergy, Unknown, rash, headache, n/v, 06/29/16) colchicine (Verified Adverse Reaction, Severe, Diarrhea, N/V, 06/29/16) acetaminophen (Verified Adverse Reaction, Intermediate, Nausea, 06/29/16) Uncoded Allergies: EGGS (Allergy, Mild, rash, headache, n/v, 07/16/13) Scheduled Allopurinol (Allopurinol) 100 Mg Tablet 100 MG PO BID Alprazolam (Alprazolam) 1 Mg Tablet 3 MG PO [facility] Cinacalcet HCl (Sensipar) 60 Mg Tablet 60 MG PO BID Clonazepam (Klonopin) 1 Mg Tablet 1 MG PO HS Lanthanum Carb Chew (Fosrenol Chew) 500 Mg Chew 500-1,500 MG PO TIDWM Methadone (Methadone) 10 Mg Tab 10 MG PO TID Metolazone (Metolazone) 2.5 Mg Tablet 10 MG PO BID Scheduled PRN Albuterol HFA (Albuterol HFA) 8.5 Gm Hfa.aer.ad 1 PUFF IH Q4 PRN PRN For Shortness of Breath Omeprazole (Omeprazole) 20 Mg Capsule.dr Q2DAY PRN PRN For Dyspepsia or Heartburn hydrOXYzine Hcl (HydrOXYzine Hcl) 25 Mg Tablet 25 MG PO TID PRN PRN For Itching General Time Seen by MD: 10:20 Chief Complaint Other (Weakness) Hx Obtained From: Patient Arrived By: Ambulance Onset Occurred: Just prior to arrival Symptom Duration: Since onset Location: Elbow left Elbow right Hip left Quality: Painful Severity: Current: Moderate Severity: Maximum: Severe Past Medical History Past Medical History 1. End-stage renal disease, on hemodialysis. 2. Chronic anemia likely secondary to underlying end-stage renal disease. 3. Hypertension. 4. Gout. 5. Obstructive sleep apnea (on CPAP). 6. Anxiety. 7. Renal osteodystrophy. 8. Asthma. Past Surgical History Left knee replacement Right hip replacement Left AV fistula Right AV fistula Bilateral carpel tunnel surgery Tubal ligation Left knee arthroscopy Nonfunctional arteriovenous fistula, anastomosis lesion, status post successful angioplasty Smoking History Never Smoker Social History Drug Use: Denies drug use Other Social History: Local resident Ambulatory Status Independent Review of Systems Constitutional: Reports: Weakness - generalized, Denies: Fever Respiratory: Reports: Shortness of breath Musculoskeletal: Reports: Joint pain Complete sys rev & neg: except as marked. Cardiovascular: Reports: Chest pain, Orthopnea GI: Reports: Diarrhea, Nausea Physical Exam Initial Vital Signs Vital Signs (First) Date Time Temp Pulse Resp B/P Pulse Ox O2 Delivery O2 Flow Rate FiO2 07/17/16 10:41 36.5 109 20 150/80 98 Room Air Initial VS: Reviewed General/Constitutional: Awake, Alert, No acute distress Appearance / Presentation: Positive: Obese, morbidly Appears fatigued Neck: Atraumatic Respiratory / Chest: Atraumatic, Breath sounds NL, Breath sounds = bilat, No respiratory distress Pt dscribes orthopnea Cardiovascular: Heart rate NL, Regular rhythm, Heart sounds NL Lower Ext Edema: Positive: Non-Pitting Mild anasarca Pt states edmea to left lower extremity edema is worse than right lower extremity, no evidence of this upon examination. Right Elbow: Positive: Ecchymosis present, Negative: Deformity present, ROM reduced... Left Elbow: Negative: Deformity present, ROM reduced... Left arm AV fistula, no swelling or erythema Lower Extremity / Pelvis / MS: No deformity, Neurologic intact, Vascular intact Pt's habitus complicates exam. Able to move left hip, no clinical signs of fracture. Faint erythema to both legs, doesn't appear cellulitic and is not warm to touch. 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 Interpretation & Diagnostics Lab Results Interpretation Result Diagram: 07/17/16 1100 07/17/16 1221 Test 07/17/16 11:00 07/17/16 12:21 White Blood Count 7.0th/mm3 (3.8-10.1) Red Blood Count 3.58mil/mm3 (3.90-5.20) Hemoglobin 9.9g/dL (12.0-15.6) Hematocrit 30.2% (35.0-46.0) Mean Corpuscular Volume 84.4fL (81-100) Mean Corpuscular Hemoglobin 27.7pg (27.0-35.0) Mean Corpuscular Hemoglobin Concent 32.8% (32.0-37.0) Red Cell Distribution Width 14.5% (12.3-15.4) Platelet Count 365bil/L (150-400) Neutrophils (%) (Auto) 75.1% (40-74) Lymphocytes (%) (Auto) 15.3% (14-46) Monocytes (%) (Auto) 5.8% (4-12) Eosinophils (%) (Auto) 3.3% (0-5) Basophils (%) (Auto) 0.1% (0-3) Hold Quinteros Top Tube Received (Received) Sodium Level 135mEq/L (134-144) Potassium Level 7.3mEq/L (3.5-5.2) Chloride Level 85mEq/L (97-108) Carbon Dioxide Level 18mmol/L (18-29) Blood Urea Nitrogen 127mg/dL (6-24) Creatinine 18.31mg/dL (0.57-1.00) Estimat Glomerular Filtration Rate 3mL/min (>59) Glucose Level 113mg/dL (60-99) Calcium Level 8.8mg/dL (8.5-10.1) Phosphorus Level 12.9mg/dL (2.5-4.9) Magnesium Level 2.1mg/dL (1.6-2.6) Total Bilirubin 0.2mg/dL (0.0-1.2) Aspartate Amino Transf (AST/SGOT) 14U/L (0-50) Alanine Aminotransferase (ALT/SGPT) 16U/L (0-32) Alkaline Phosphatase 181U/L (25-150) Total Protein 6.3g/dL (6.4-8.4) Albumin 3.4g/dL (3.4-5.0) Lab Results Interpretation: CBC mild anemia, chronic CMP potassium elevated, and creatinine severely elevated, consistent with clinical uremia (and having missed multiple episodes of dialysis), metabolic acidosis, glucose nl ECG Interpretation ECG Interpretation: No QRS widening in comparison to prior (06/10/16) No clear findings of hyperkalemia evident Time: 10:59 Interpreted by: ED physician Normal ECG Interpretation: Normal rate (91), Normal sinus rhythm, No acute ischemic changes, Normal QRS X-Ray Chest Interpretation Chest Xray Interpretation: IMPRESSION: No acute cardiopulmonary disease. Dictated by: Myrna Padgett MD on 07/17/16 at 13:42 Approved by: Myrna Padgett MD on 07/17/16 at 13:43 X-Ray Interpretation Xray Interpretation: IMPRESSION: No fracture or dislocation. Multiple soft tissue calcifications are noted suggetsing collagen vascular disease such as scleroderm. ecommend clinicla correlation. Dictated by: Myrna Padgett MD on 07/17/16 at 13:43 Approved by: Myrna Padgett MD on 07/17/16 at 13:44 X-Ray Ordered: Elbow left Interpretation: No fracture/dislocation Xray Interpretation: IMPRESSION: 1. No fracture or dislocation. 2. Soft tissue calcification is posterior to olecranon. Differential diagnosis include dystrophic soft tissue calcification versus tendon injuries. If clinical symptoms persist or clinical suspiscion for pathology high, a MRI is suggested fo rfurther evaluation. Dictated by: Myrna Padgett MD on 07/17/16 at 13:42 Approved by: Myrna Padgett MD on 07/17/16 at 13:43 X-Ray Ordered: Elbow right Re-Eval/Medical Decision Med Decision/Clinical Course This is a 50-year-old female with chronic renal failure on Monday dialysis view as been homeless and living out of her car, and is missed her dialysis appointments over the past 10 days. She started feels so weak that she did get a hotel room, presents today with complaint of progressive generalized weakness. Reports he got fairly severe 4 days ago when she is just weak and felt her legs started to swell and had discomfort in her left hip, then the other day her just prop herself up in bed her right elbow kind of gave out, and today trying to just pop or supplement to the left elbow gave out she just feels she is too weak. She denies chest pain, she does note orthopnea and states she cannot lay flat, she has noticed some lower extremity edema as well. Denies pain at present, but is on chronic methadone. She had a hospitalization in May for hyperkalemia having missed dialysis then as well. On exam she is hypertensive, but not visibly dyspneic, not hypoxic. I do not appreciate rales on exam clinically, her exam is completely by habitus. She has some bruising around the right elbow, without clinical signs of fracture but she is concerns her milligrams were obtained. Left arm has a left AV fistula, again patient like x-rays, but injury is not clinically apparent. She had no direct trauma to the hip, has normal flexion and internal Rotation, she is globally weak I laterally and has barely enough strength to try and lift the foot off the gurney. But not finding signs of fracture. There is a faint erythema along the crocker, but the patient states is chronic calciphylaxis, I do not appreciate overt signs of cellulitis. The patient thinks the left leg is slightly larger left I do not really appreciate this clinically-the exam is somewhat, gave by habitus. She has intact pulses. Stat EKG demonstrated no QRS widening or peak T waves to indicate cardiac findings of hyperkalemia. IV was placed. Chest x-ray reveals no gross heart failure, but the patient describes findings of volume overload. She is not hypoxic. Initial labs hemolyzed, so there was a minimal lab delay, I called and was able to learn prior to the gaping posted in the computer the patient's potassium is elevated at 7.1, creatinine 18, when necessary 125. Patient was given calcium gluconate, 20 mg of albuterol, 50 mEq of sodium bicarbonate, 10 units of insulin , and dextrose. The nephrologists been contacted and is arranging dialysis. The patient's being admitted for continued management. I requested a social security benefits interviewer consult given the situation, and risk for recurrance. Source of Hx: Old records, EMS Re-Evaluation/Progress #1: Time of Eval: 12:17 Re-Evaluation/Progress Note: Contacted lab regarding lack of results, they state results will be available in 10 minutes. Re-Evaluation/Progress #2: Time of Eval: 12:34 Re-Evaluation/Progress Note: Contacted lab regarding lack of results, they provide critical results over phone. Re-Evaluation/Progress #3: Time of Eval: 12:47 Re-Evaluation/Progress Note: Pt rechecked. Discussed need for admit, pt understands and agrees with plan. Consultation : Referral / Consult Name: Jarred Guillory DO Consulted With: Hospitalist Call Returned at: 13:01 Canoe Maker: Will see patient, Agrees with eval, Agrees with plan, Accepts admit Note: Discussed pt condition and her need for hemodialysis. Dr. Guillory accepts admit. Counseled Regarding: Diagnosis, Lab results, Need for admission Discharge & Departure Impression: Primary Impression: Hyperkalemia Additional Impressions: ESRD on dialysis Uremia Noncompliance Homelessness Disposition: ADMITTED TO HOSPITAL Discharge Condition All VS Reviewed: Yes Condition: Stable Referrals: Dorothy Lagos MD (PCP) Crit Care Except Billable Proc Time Spent: 30-74 minutes Services Performed: Patient management by me, Time spent at bedside, Reviewing test results, Reviewing imaging, Discussing patient care, Documentation in record Scribe Attestation Portions of this note were transcribed by Aundrea Amador. I, Dr. Ceron personally performed the history, physical exam and medical decision-making; I reviewed and confirmed the accuracy of the information in the transcribed note. Signed by: Marcos Bishop, 07/17/16 and [id number]. copies to: DemondDorothy dorman MD, Matthew F MD Jul 17, 2016 10:43 AUNDREA AMADOR Jul 17, 2016 11:05
[2016-07-17 11:15] LABS: BASOPHILS % (AUTO) 0.1 % (0-3); EOSINOPHILS % (AUTO) 3.3 % (0-5); MONOCYTES % (AUTO) 5.8 % (4-12); Mean Corpuscular Hemoglobin 27.7 pg (27.0-35.0); Mean Corpuscular Volume 84.4 fL (81-100); NEUTROPHILS % (AUTO) 75.1 % (40-74); Platelet Count 365 bil/L (150-400)
[2016-07-17] MEDS ORDERED: OMEP20CA11 PO (12:03)
[2016-07-17] MEDS ORDERED: Insulin Human REGular-Omnicell 100 Unit/mL IV ONE (12:35)
[2016-07-17] MEDS ORDERED: Albuterol 0.5% (5mg/mL) 20 mL Inhalation Solution NEB ONE (12:35)
[2016-07-17] MEDS ORDERED: Sodium Bicarb (50 mEq) 8.4% 1 mEq/mL 50 mL Syringe IVPUSH ONE (12:35)
[2016-07-17] MEDS ORDERED: Calcium GLUCOnate 10% (Gm) 1 Gm/10 mL Inj IVPUSH PRN (12:35)
[2016-07-17 12:45] LABS: Magnesium 2.1 mg/dL (1.6-2.6); Phosphorus 12.9 mg/dL (2.5-4.9)
[2016-07-17] MEDS ORDERED: Alum-Mag Hydrox-Simeth 30 mL Suspension PO PRN ×2 (13:05→14:00)
[2016-07-17] MEDS ORDERED: Ondansetron 2 mg/mL 2 mL Inj IVPUSH PRN (13:05)
[2016-07-17] MEDS ORDERED: Polyethylene Glycol (PEG) 17 Gm Powder PO PRN ×2 (13:05→14:00)
--- NOTE | 2016-07-17 15:15 | DRSVH ---
PROCEDURE: X-RAY LEFT ELBOW, TWO VIEWS ([id number]) INDICATIONS: Elbow "giving out". TECHNIQUE: 2 views of the elbow were acquired. COMPARISON: None. FINDINGS: Bones: No fractures or dislocations. No suspicious bony lesions. Soft tissues: No elbow joint effusion. Multiple soft tissue calcifications around elbow are noted. IMPRESSION: No fracture or dislocation. Multiple soft tissue calcifications are noted, suggesting col lagen vascular disease such as scleroderm. Recommend clinical correlation. Dictated by: Myrna Padgett M.D. on 07/17/2016 at 13:43 Approved by: Myrna Padgett M.D. on 07/17/2016 at 13:44
--- NOTE | 2016-07-17 15:15 | DRSVH ---
PROCEDURE: X-RAY RIGHT ELBOW, TWO VIEWS ([id number]) INDICATIONS: Right elbow "giving out". TECHNIQUE: 2 views of the elbow were acquired. COMPARISON: [facility], CR, XR ELBOW 2VW LT, 07/17/2016, 11:14. FINDINGS: Bones: No fractures or dislocations. No suspicious bony lesions. Soft tissues: No elbow joint effusion. There are soft tissue calcifications posterior to upper lung . IMPRESSION: 1. No fracture or dislocation. 2. Soft tissue calcification is posterior to olecranon. Differential diagnoses include dystrophic sof t tissue calcification versus tendon injuries. If clinical symptoms persist or clinical suspicion for pathology is high, a MRI is suggested for further evaluation. Dictated by: Myrna Padgett M.D. on 07/17/2016 at 13:39 Approved by: Myrna Padgett M.D. on 07/17/2016 at 13:42
--- NOTE | 2016-07-17 15:15 | DRSVH ---
PROCEDURE: X-RAY CHEST ONE VIEW, PORTABLE ([id number]) INDICATIONS: SOB TECHNIQUE: One view of the chest was acquired. COMPARISON: [facility], CR, XR CHEST 1VW (PORTABLE), 06/10/2016, 19:06. [facility], CR, XR CHEST 1VW (PORTABLE), 06/29/2016, 12:05. FINDINGS: Surgical changes and devices: None. Lungs and pleura: No pleural effusions or pneumothorax. Lungs are clear. Mediastinum: Mediastinal contours appear normal. Heart size is normal. Bones and chest wall: No suspicious bony lesions. Overlying soft tissues appear unremarkable. IMPRESSION: No acute cardiopulmonary disease. Dictated by: Myrna Padgett M.D. on 07/17/2016 at 13:42 Approved by: Myrna Padgett M.D. on 07/17/2016 at 13:43
--- NOTE | 2016-07-17 15:52 | NUR ---
Admission Admit to room 3014 from ER via [facility]. Admission assessments completed in ER. Pt oriented to room and call light. Pt comfortable other than feeling shaking. Observed tremors, BS tested at 192. Provider notified and assessed. supervisor twisting department performing dialysis in room at this time. Addendum: 07/17/16 at 1614 by ANGEL PETERSON RN Diet amended to reflect allergies and latex cart obtain and stationed outside of room.
--- NOTE | 2016-07-17 16:12 | PCM.HPMED ---
Subjective Date of Service Jul 17, 2016 Primary Provider: Admitting Physician: Jarred Guillory DO Primary Care Physician: Nasir Attending Physician: Jarred Guillory DO Chief Complaint: Profound weakness. History of Present Illness: Patient is a 49-year-old female past medical history significant for end-stage renal disease dialysis dependent addition to hypertension and asthma well known to this hospital presenting after approximately 2 weeks of missed dialysis due to life stressors which have left her home was unable to make her appointment. Patient notes for the last 4 days things have become so bad she was essentially unable to move herself around, and rise from seated position. She had been living in her van, before moving to a hotel room without 2 days prior with the help of a friend. Her condition of course failed to improve without medical treatment dialysis, finally prompting her to call 911 earlier today. Patient can offer no real explanation as to why she had not sought help sooner, states she felt overwhelmed by stress from homelessness and lack of funds/resources, and could not bring herself to come to office for further care. She additionally had difficulty with transportation, and other than 911 was not sure how she would get herself to treatment. Time of evaluation patient reported passive emergency department she is provided number of medications to address her severe hyperkalemia, and was beginning to be set up for emergent dialysis given land findings could be discussed below. Patient noted she really been feeling significantly better since presenting to the emergency department, states this is happened in the past multiple times and she generally appears rapidly once appropriate treatment has been provided. She has no acute complaints at this time. He is on chronic methadone for pain though has been off it the last couple of days, have been rationing pills and taking only 5mg up until the last 2 days when she ran out completely. She has not fact been taking no other medications last couple of weeks, including all blood pressure and renal medications. She denies chest pain currently, also denies palpitations or any shortness of breath. He had been short of breath prior neurologic treatments that were provided her in emergency department. Denies any nausea or vomiting. Denies dizziness changes in vision or any change in her mentation ability to concentrate. Does endorse generalized fatigue and low energy level but this has been chronic over the last couple of weeks, as noted above worsening over the last couple of days. Also denies fever chills or sweats. Review of Systems: A 10 point review of systems was conducted and entirely negative excepting pertinent positives and negatives included above history of present illness Allergies Coded Allergies: codeine (Verified Allergy, Severe, RASH, HEADACHE, 06/29/16) hydrocodone (Verified Allergy, Severe, RASH, HEADACHE, 06/29/16) latex (Verified Allergy, Severe, RASH, HIVES, DIFFICULTY BREATHING, 06/29/16 ) diclofenac sodium (Verified Allergy, Mild, diarrhea, vomiting, 06/29/16) Pork (Verified Allergy, Unknown, rash, headache, n/v, 06/29/16) colchicine (Verified Adverse Reaction, Severe, Diarrhea, N/V, 06/29/16) acetaminophen (Verified Adverse Reaction, Intermediate, Nausea, 06/29/16) Uncoded Allergies: EGGS (Allergy, Mild, rash, headache, n/v, 07/16/13) Home Medications Allopurinol (Allopurinol) 100 Mg Tablet 100 MG PO BID Alprazolam (Alprazolam) 1 Mg Tablet 3 MG PO MWF Cinacalcet HCl (Sensipar) 60 Mg Tablet 60 MG PO BID Clonazepam (Klonopin) 1 Mg Tablet 1 MG PO HS Lanthanum Carb Chew (Fosrenol Chew) 500 Mg Chew 500-1,500 MG PO TIDWM Methadone (Methadone) 10 Mg Tab 10 MG PO TID Metolazone (Metolazone) 2.5 Mg Tablet 10 MG PO BID Scheduled PRN Albuterol HFA (Albuterol HFA) 8.5 Gm Hfa.aer.ad 1 PUFF IH Q4 PRN PRN For Shortness of Breath Omeprazole (Omeprazole) 20 Mg Capsule.dr Q2DAY PRN PRN For Dyspepsia or Heartburn hydrOXYzine Hcl (HydrOXYzine Hcl) 25 Mg Tablet 25 MG PO TID PRN PRN For Itching PMH 1. End-stage renal disease, on hemodialysis. 2. Chronic anemia likely secondary to underlying end-stage renal disease. 3. Hypertension. 4. Gout. 5. Obstructive sleep apnea (on CPAP). 6. Anxiety. 7. Renal osteodystrophy. 8. Asthma. 9. 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 Surgical History Left knee replacement Right hip replacement Left AV fistula Right AV fistula Bilateral carpel tunnel surgery Tubal ligation Left knee arthroscopy Nonfunctional arteriovenous fistula, anastomosis lesion, status post successful angioplasty Family History DM II Social History Hx Alcohol Use: No Hx Substance Use: No Hx Tobacco Use: No Smoking Status: Never Smoker Living Arrangement: Homeless Exam Vital Signs Vital Sign - Last Date Time Temp Pulse Resp B/P Pulse Ox O2 Delivery O2 Flow Rate FiO2 07/17/16 15:37 115 07/17/16 14:13 36.6 22 131/65 97 Room Air General: Alert, Oriented X3, Cooperative, Mild Distress Eyes: PERRLA, EOMI Mouth: Mucous Membr Moist/[place] Chest & Lungs: Clear to auscultation & percussion Cardiovascular: Regular Rate/Rhythm Abdomen: Non-tender, Non-distended, Normoactive bowel tones, Other (obese. Multiple subcutaneous firm calcium deposits noted in fatty tissue of flank. ) Extremities: No cyanosis/clubbing/edma bilat, Other (fistula noted on arm, noninfected nonerythematous. ) Neurological: Grossly Neurologically Intact Lab and Diagnostics Result Diagram: 07/17/16 1100 07/17/16 1221 Assessment & Plan 50-year-old female past medical history significant for end-stage renal disease dialysis dependent in addition to asthma, presenting to emergency room via EMS following greater than 2 weeks cessation of hemodialysis treatment, and noted to have profoundly elevated renal functions and gross electrolyte disturbances including a potassium of greater than 7. Now admitted for emergent dialysis therapy, restarted her medications, further medical evaluation and treatment. 1. End-stage renal disease, dialysis dependent - Dr. Zhao, nephrology, was notified of patient's arrival in ER as well as her profoundly elevated levels and he arrange for emergent dialysis accordingly. - In ER she was provided medications temporarily stabilize cardiac function in the setting of profound hyperkalemia including insulin with dextrose, calcium gluconate, and nebulizer therapies. - EKG was reassuring in the ER, and patient is currently monitored on telemetry though no evidence of arrhythmia noted at this time. - She will be restarted on home medications, continue to appreciate nephrology consultation assistance with this very complicated patient. - Follow-up labs this evening and in a.m. further evaluate need for subsequent dialysis treatments. 2. Hyperkalemia - Secondary to end-stage renal failure - Treatment as noted above include calcium gluconate on presentation to ER to stabilize cardiac function while awaiting dialysis. - Currently demonstrating no evidence of arrhythmia hemodynamically stable we will continue to monitor on telemetry overnight. 3. Asthma - Continue home nebulizer therapies - Patient currently saturating well on room air does not appear in acute exacerbation. 4. Chronic pain - As patient has been off methadone for a number of days we will restart at a lower dosage of 5 mg daily, consider further titration based on pain symptoms should she not demonstrate adverse effects/evidence of respiratory depression 5. Anxiety - Restart patient's evening Klonopin for help with sleep. - She is generally provided Xanax prior to dialysis therapies that she did not require it today and we will defer restarting that to a later date. 6. Disposition - Patient is obviously in need of further support outpatient, should she utilize a properly to help stabilize her home environment and allow her to receive needed medical therapies on regular basis to prevent recurrent remission. - Case management was consulted from ER to review case and consider further support which may be available the patient on discharge Pain Evaluation: Adequate Pain Control GI Prophylaxis: Not indicated VTE Mechanical Devices: Intermittant Pneumatic CD Resuscitation Status: CPR: Attempt Resuscitation Time spent 55 minutes Jarred Guillory DO Jul 17, 2016 16:12
[2016-07-17] MEDS: Ondansetron 2 mg/mL 2 mL Inj IVPUSH PRN (17:27)
[2016-07-17] MEDS: Lanthanum Carbonate 500 mg Chewable Tablet PO SCH (17:29)
[2016-07-17] MEDS: Sodium Thiosulfate 25% 12.5 Gm/50 mL Inj IV SCH (17:52)
--- NOTE | 2016-07-17 19:12 | NUR ---
Dialysis note: 3 hrs tx. 3000 ml net UF. Left upper arm fistula. Pls see DTR for VS details. Qb 400-500. Heparin given. O2 @ 2L via NC on. Na thiosulfate 25 Gm IV with Zofran 8 mg IV given as ordered. Tolerated tx, slept at intervals. Fistula needle sites clotted within 5 min. Report given to Laisha Lainez RN.
[2016-07-17] MEDS ORDERED: Albuterol 2.5 mg/3 mL Inhalation Solution NEB PRN (20:00)
[2016-07-17] MEDS: hydrOXYzine Pamoate 25 mg Capsule PO PRN (21:04)
--- NOTE | 2016-07-17 21:14 | CONS ---
[address] [address] CONSULTATION REPORT PATIENT: ELIZABETH TERAN : 1965 MR#: [id number] ADMIT: 07/17/2016 JOB ID: [id number] DATE OF SERVICE: HISTORY: The patient is a rather unfortunate, 50-year-old, white female, who was admitted to [facility] for generalized weakness, severe uremia, and hyperkalemia. She has a history of end-stage renal disease and renal consultation is being sought for further management of her chronic kidney disease and dialysis. She has a history of end-stage renal disease and has been on dialysis for approximately 6-1/2 years. She states that the etiology of her renal failure was due to hypertension and also some type of hereditary kidney problem. She states that she has had hematuria and proteinuria for approximately 10 years prior to her starting dialysis and had undergone a renal biopsy but is unsure of what the results were. There is also a history of gout. Her end-stage renal disease has been complicated by severe secondary hyperparathyroidism and calciphylaxis. She states that she has had he calciphylaxis for well over a year and it is worsening despite treatment with sodium thiosulfate. She also has a history of intermittent noncompliance with treatments. The calciphylaxis lesions are on both her distal legs, hips, inferior aspect of her pendulous abdomen. She states that she has had a number of personal issues in her life, including relationships problem and being homeless. She has been either living in a van, or when she can afford it, a hotel room. She states that she has not had dialysis for approximately two weeks. Several weeks ago, she was a patient here with a similar situation. She states that for the last several days, she has had profound weakness, shortness of breath, pruritus, insomnia, chest pain, headache, nausea, anorexia, orthopnea, and diarrhea. She denies any difficulties with urination and no fever or chills. In the emergency department, her white count was 7.1, hemoglobin of 9.9, hematocrit 30.2. Sodium is 135, potassium 7.3, chloride of 85, CO2 of 18. BUN and creatinine were 127 and 18.3, respectively. Her calcium is 8.8, and her phosphorus is 12.9. PAST MEDICAL HISTORY: Significant for end-stage renal disease, as detailed above, hypertension with hypertensive heart disease and hypertensive nephrosclerosis, asthma, severe secondary hyperparathyroidism, and calciphylaxis, as detailed above. She denies a history of any prior stroke, seizure, tuberculosis, history of tobacco use, history of myocardial infarction, congestive heart failure, hepatitis, thyroid illness, or malignancy. PAST SURGICAL HISTORY: Significant for a total hip replacement of the right hip and a total knee replacement of the left knee, along with left AV fistula in the upper arm. She is allergic to: 1. EGGS. 2. PORK. 3. LATEX. 4. CODEINE. 5. VOLTAREN. SOCIAL HISTORY: She denies use of alcohol, tobacco, or illicit drugs, and is currently homeless. I do not have an available medication list to review. PAST FAMILY HISTORY: Unremarkable for any history of renal problems or deafness. REVIEW OF SYSTEMS: As detailed above. PHYSICAL EXAMINATION: Reveals an obese, 50-year-old, white female, who was alert and oriented x3, in no distress at time of my evaluation. Her blood pressure is 132/65, with a pulse rate of 112. She was tachypneic at 34 respirations per minute. HEENT examination is remarkable for pale sclerae and an uremic fetor on her breath. Neck is supple without adenopathy, thyromegaly or jugular venous distention. Lungs are clear though somewhat diminished. Heart was regular and rhythmical with a soft systolic murmur. However, a rub was not appreciated. Abdomen was pendulous, but there was no tenderness, rebound, guarding, masses or hepatosplenomegaly noted. Extremities: Showed circumferential erythema of both distal lower extremities. Skin turgor was good. LABORATORY EXAMINATION: As noted above. On admission, her sodium is 135, potassium 7.3, chloride of 85, bicarbonate was 18. BUN and creatinine were 127 and 8.3 respectively, with a phosphorus of 12.9. IMPRESSION: 1. End-stage renal disease--dialysis dependent with noncompliance. 2. Severe hyperkalemia and anion gap metabolic acidosis secondary to under-dialysis. 3. Secondary hyperparathyroidism of renal etiology with calciphylaxis. 4. Hypertension with hypertensive heart disease and hypertensive nephrosclerosis. RECOMMENDATION: We are going to a emergently dialyze her this afternoon for 3 hours on a Revaclear Max dialyzer and a 1 potassium bath. We will also give her 1200 of heparin and 500 units/hour. Will also run a 38 bicarb and try to take 2-3 L of fluid off. In addition, will give 25 g of sodium thiosulfate. Once again, I would like to thank you for allowing me to participate in the care of this rather unfortunate patient and I will be following her closely with you.
[2016-07-18] VITALS (7 sets, daily range): BP systolic 119–139; BP diastolic 69–89; PULSE 71–101; RESP 18–20; O2SAT 93–96
--- NOTE | 2016-07-18 00:10 | NUR ---
Acetaminophen: Pt requested that Acetaminophen be removed from allergy list as pt states she is not allergic and takes it at home all the time. this Rn has removed acetaminophen from allergy list.
--- NOTE | 2016-07-18 04:58 | NUR ---
Tylenol for ZIMMERMAN pt requested Tylenol for headache. Denies chest pain. Denies SOB. Pleasant and compliant with care.
[2016-07-18 07:36] LABS: BASOPHILS % (AUTO) 0.2 % (0-3); EOSINOPHILS % (AUTO) 3.2 % (0-5); MONOCYTES % (AUTO) 7.7 % (4-12); Mean Corpuscular Volume 86.3 fL (81-100); NEUTROPHILS % (AUTO) 71.3 % (40-74); Platelet Count 353 bil/L (150-400)
[2016-07-18] MEDS: Lanthanum Carbonate 500 mg Chewable Tablet PO SCH ×3 (07:47→17:35)
--- NOTE | 2016-07-18 08:24 | NUR ---
To Dialysis Pt taken to [facility] for dialysis at 0820 via hospital bed. Medications reviewed w/ spikemaking supervisor and given if appropriate. Report called to JOSE Etienne on [facility].
[2016-07-18] MEDS ORDERED: 0.9% Sodium Chloride 250 ML ONE (09:50)
[2016-07-18] MEDS ORDERED: Darbepoetin Alfa 60 mCg/0.3 mL Inj IV STA (11:11)
[2016-07-18] MEDS: Ondansetron 2 mg/mL 2 mL Inj IVPUSH PRN ×2 (11:19→12:33)
[2016-07-18] MEDS: Sodium Thiosulfate 25% 12.5 Gm/50 mL Inj IV SCH (11:20)
--- NOTE | 2016-07-18 11:26 | PCM.PNMED ---
Subjective Date of Service Jul 18, 2016 Subjective Pt is seen and examined while on HD. She is feeling better today. She has no CP/SOB. Exam Vital Signs Vital Sign - Last Date Time Temp Pulse Resp B/P Pulse Ox O2 Delivery O2 Flow Rate FiO2 07/18/16 10:32 97 07/18/16 05:46 36.7 20 126/73 93 Room Air Intake and Output 07/17/16 07/17/16 07/18/16 Cumulative From/Thru 14:59 22:59 06:59 07/17/16 10:41 - 07/18/16 06:59 Intake Total 750 ml 750 ml Output Total 3000 ml 3000 ml Balance -2250 ml -2250 ml Intake Oral 750 ml 750 ml Output Urine Total 0 ml 0 ml Ultrafiltrate 3000 ml 3000 ml # Bowel Movements 0 0 Exam GA: AAOx3, NAD. HEENT: mild pallor, no icteric sclerae, no JVD, no LAD atraumatic, moist mucous membrane. Heart: RRR, soft systolic murmur. Lungs: CTA, B/L. Abd: obese, ND, mild tenderness on lower abd wall, (+) subcutaneous nodules. no mass, no HSM. Ext: left AVF good thrill, no edema. multiple subcutaneous painful nodules noted on right thigh. Lab and Diagnostics Result Diagram: 07/18/16 0700 07/18/16 0700 Assessment & Plan 1. End-stage renal disease--dialysis dependent with noncompliance. 4 hr, Revaclear max, DFR 600, BFR 450 UF as tolerated. Left AVF 2K, 2.5Ca, 37HCO3. 2. Severe hyperkalemia and anion gap metabolic acidosis secondary to under- dialysis. Improving. 3. Secondary hyperparathyroidism 4. Calciphylaxis on sodium thiosulfate. 5. Hypertension with hypertensive heart disease and hypertensive nephrosclerosis. Plan: Next HD on Monday. continue PO4 binders and sensipar. will order CT soft tissue to eval parathyroid glands to rule out adenoma/ hyperplasia. May require parathyroidectomy. GI Prophylaxis: Not indicated VTE Mechanical Devices: Intermittant Pneumatic CD Resuscitation Status: CPR: Attempt Resuscitation Sanket Mensah MD Jul 18, 2016 11:25
[2016-07-18] MEDS ORDERED: Darbepoetin Alfa (ESRD) 40 mCg/0.4 mL Inj SUBQ ONE (12:30)
--- NOTE | 2016-07-18 13:41 | NUR ---
Dialysis note: 4 1/2 hr tx. Net UF 3000. Accessed left fistula with 15g. buttonhole needles. Pt requested benadryl, xantax, zofran which were all given per Dr. Linares order. Sodium thiosulfate and aranesp were also given. Pt became sleepy the last 2 hrs of tx. She would arouse with voice, open eyes for 3 seconds, respond with slurred speech. BP remained stable. By the end of tx she was able to respond without slurred speech and stayed alert for a few minutes before dozing off. Site clamped x 5 min and secured with gauze and tape. Pt returned to floor stable. Please see DTR for complete record of VS.
--- NOTE | 2016-07-18 13:55 | NUR ---
Social Work Initial Assessment Attempted: SW attempted to meet with patient at bedside to discuss discharge plan. Patient currently off unit in HD at this time. SW to complete assessment upon retun to unit to discuss discharge plans of care and HD compliance. PLAN: Initial Assessment pending. Patient off unit in HD at this time. Tracy VALADEZ
--- NOTE | 2016-07-18 14:13 | NUR ---
Return from dialysis Pt returned to room 3014 from dialysis at 1415. Arrived awake and talking, but quickly dozed off. Pt denies pain.
--- NOTE | 2016-07-18 15:17 | PCM.PNMED ---
Subjective Date of Service Jul 18, 2016 Subjective Potassium indices improving with dialysis yesterday. She will have dialysis today again. No arrhythmia. No new complaints. Exam Vital Signs Vital Sign - Last Date Time Temp Pulse Resp B/P Pulse Ox O2 Delivery O2 Flow Rate FiO2 07/18/16 10:32 97 07/18/16 05:46 36.7 20 126/73 93 Room Air Intake and Output 07/17/16 07/17/16 07/18/16 Cumulative From/Thru 15:00 23:00 07:00 07/17/16 10:41 - 07/18/16 06:59 Intake Total 750 ml 750 ml Output Total 3000 ml 3000 ml Balance -2250 ml -2250 ml Intake Oral 750 ml 750 ml Output Urine Total 0 ml 0 ml Ultrafiltrate 3000 ml 3000 ml # Bowel Movements 0 0 Exam General: Alert, Oriented X3, Cooperative, Mild Distress Eyes: PERRLA, EOMI Mouth: Mucous Membr Moist/[place] Chest & Lungs: Clear to auscultation & percussion Cardiovascular: Regular Rate/Rhythm Abdomen: Non-tender, Non-distended, Normoactive bowel tones, Other (obese. Multiple subcutaneous firm calcium deposits noted in fatty tissue of flank. ) Extremities: No cyanosis/clubbing/edma bilat, Other (fistula noted on arm, noninfected nonerythematous. ) Neurological: Grossly Neurologically Intact IVs and Medications Medications Reviewed: Medications were reviewed in detail Lab and Diagnostics Result Diagram: 07/18/16 0700 07/18/16 0700 Assessment & Plan 50-year-old female past medical history significant for end-stage renal disease dialysis dependent in addition to asthma, presenting to emergency room via EMS following greater than 2 weeks cessation of hemodialysis treatment, and noted to have profoundly elevated renal functions and gross electrolyte disturbances including a potassium of greater than 7. Now admitted for emergent dialysis therapy, restarted her medications, further medical evaluation and treatment. # . severe Hyperkalemia,resolved - Secondary to missed dialysis ,patient with end-stage renal failure - s/p calcium gluconate ,insulin and dextrose - Currently demonstrating no evidence of arrhythmia hemodynamically stable -had emergent dialysis yesterday,will have more dialysis today . # . End-stage renal disease, dialysis dependent - Dr. Zhao, nephrology,had emergent dialysis 07/17 - EKG was reassuring in the ER, and patient is currently monitored on telemetry though no evidence of arrhythmia noted at this time. - She will be restarted on home medications, continue to appreciate nephrology consultation assistance with this very complicated patient. - Follow-up labs this evening and in a.m. further evaluate need for subsequent dialysis treatments. #. Asthma - Continue home nebulizer therapies - Patient currently saturating well on room air does not appear in acute exacerbation. #. Chronic pain - As patient has been off methadone for a number of days we will restart at a lower dosage of 5 mg daily, consider further titration based on pain symptoms should she not demonstrate adverse effects/evidence of respiratory depression #. Anxiety - Restart patient's evening Klonopin for help with sleep. - She is generally provided Xanax prior to dialysis therapies that she did not require it today and we will defer restarting that to a later date. #. Disposition - Patient is obviously in need of further support outpatient, should she utilize a properly to help stabilize her home environment and allow her to receive needed medical therapies on regular basis to prevent recurrent remission. - Case management was consulted from ER to review case and consider further support which may be available the patient on discharge GI Prophylaxis: Not indicated VTE Mechanical Devices: Intermittant Pneumatic CD Resuscitation Status: CPR: Attempt Resuscitation Enmanuel León MD Jul 18, 2016 15:17
--- NOTE | 2016-07-18 16:10 | NUR ---
Social Work Initial Assessment: SW met with patient at bedside to discuss discharge plan. Patient is a 50 year old female admitted on 07/17/16 for generalized weakness and uremia. Patient payer as Medicare and K[employer] supp. Patient states being on social security and receives $1200 on the 3rd of each month. Patient PCp as MD Zhao. Patient states being homeless at this time and has been residing at [facility]. Patient states she is working with [employer] regarding housing assistance. Patient has no HHC, SNF or AD history. Patient denied completion of AD form at this time. Patient uses a walker with seat. SW discussed HD sessions and compliance. Patient states she transports via [facility]. Patient states being unsure of quill picking machine operator location at times and as a result misses HD sessions. Patient aware to contact [employer] 24hr prior when address determined for qu[employer] picking [employer] operator to and from HD sessions. SW inquired about discharge plans upon discharge. SW inquired about available funds for a hotel for her and her significant other Glenn. Patient states having no available funds at this time. SW inquired if residing at [facility], is also a possibility. Patient states having an estranged relationship with daughter states residing with daughter will be unable to be established. SW discussed penitentiary options at the [facility]. SW contacted the [facility], and spoke with rep Kwan. Aniya states having no availability at this time to accommodate patient. [facility] and spoke to rep Liz who states having availability and patient and significant other can check in anytime before 7:30pm. Patient aware. Additional homeless resources also provided. SW to follow. PLAN: Homeless. Return to homelessness. Longterm information provided. Tracy VALADEZ Addendum: 07/18/16 at 1625 by TRINITY BAKER Amended: Links added.
[2016-07-18] MEDS: hydrOXYzine Pamoate 25 mg Capsule PO PRN (20:16)
[2016-07-19 00:48] VITALS: BP 116/75; PULSE 90; RESP 22; O2SAT 94
[2016-07-19 05:32] VITALS: BP 115/69; PULSE 95; RESP 20; O2SAT 93
[2016-07-19] MEDS: hydrOXYzine Pamoate 25 mg Capsule PO PRN ×2 (08:03→20:28)
[2016-07-19] MEDS: Lanthanum Carbonate 500 mg Chewable Tablet PO SCH ×3 (08:05→17:12)
[2016-07-19 08:57] LABS: BASOPHILS % (AUTO) 0.3 % (0-3); EOSINOPHILS % (AUTO) 6.6 % (0-5); MONOCYTES % (AUTO) 8.7 % (4-12); Mean Corpuscular Volume 87.9 fL (81-100); NEUTROPHILS % (AUTO) 52.1 % (40-74); Platelet Count 446 bil/L (150-400)
[2016-07-19 09:21] LABS: Magnesium 1.9 mg/dL (1.6-2.6); Phosphorus 6.9 mg/dL (2.5-4.9)
[2016-07-19 09:43] VITALS: BP 115/75; PULSE 95; RESP 20; O2SAT 95
[2016-07-19 10:09] VITALS: PULSE 86
--- NOTE | 2016-07-19 11:22 | PCM.PNMED ---
Subjective Date of Service Jul 19, 2016 Subjective HDx2, feeling weak, unable to ambulate. pending PT eval. Exam Vital Signs Vital Sign - Last Date Time Temp Pulse Resp B/P Pulse Ox O2 Delivery O2 Flow Rate FiO2 07/19/16 10:09 86 07/19/16 09:43 37.3 20 115/75 95 Room Air Intake and Output 07/18/16 07/18/16 07/19/16 Cumulative From/Thru 15:00 23:00 07:00 07/17/16 10:41 - 07/19/16 06:32 Intake Total 90 ml 620 ml 400 ml 1860 ml Output Total 3025 ml 0 ml 0 ml 6025 ml Balance -2935 ml 620 ml 400 ml -4165 ml Intake Oral 90 ml 620 ml 400 ml 1860 ml Output Urine Total 25 ml 0 ml 0 ml 25 ml Ultrafiltrate 3000 ml 6000 ml # Bowel Movements 0 0 0 Exam GA: AAOx3, NAD. HEENT: mild pallor, no icteric sclerae, no JVD, no LAD atraumatic, moist mucous membrane. Heart: RRR, soft systolic murmur. Lungs: CTA, B/L. Abd: obese, ND, mild tenderness on lower abd wall, (+) subcutaneous nodules. no mass, no HSM. Ext: left AVF good thrill, no edema. multiple subcutaneous painful nodules noted on right thigh. Lab and Diagnostics Result Diagram: 07/19/1683407/19/16834 Assessment & Plan 1. End-stage renal disease--dialysis dependent with noncompliance. 2. Severe hyperkalemia and anion gap metabolic acidosis secondary to under- dialysis. Improving. 3. Secondary hyperparathyroidism 4. Calciphylaxis on sodium thiosulfate. 5. Hypertension with hypertensive heart disease and hypertensive nephrosclerosis. Plan: Next HD on Monday with sodium thiosulfate infusion treating for calciphylaxis. continue PO4 binders and sensipar. pending CT soft tissue to eval parathyroid glands to rule out adenoma/ hyperplasia. May require parathyroidectomy. GI Prophylaxis: Not indicated VTE Mechanical Devices: Intermittant Pneumatic CD Resuscitation Status: CPR: Attempt Resuscitation Sanket Mensah MD Jul 19, 2016 11:22
--- NOTE | 2016-07-19 12:11 | NUR ---
Social Work Continued Discharge Planning: SW spoke to patient at bedside to discuss discharge plan. Patient states that she has spoken to her mother in law in [place], [place] and she states that her mother in law to provide available funds for a [employer] bus ticket at discharge. SW inquired about outpt HD arrangements with move in [place] upon discharge. Patient states she has determined that [facility] HD center in [facility], [phone] is an affiliated HD center near her mother in law's home. Patient current with [facility], for HD at this time. DEMETRIA spoke to [facility] licensed master social worker Kathryn who was advised of above and for assistance with change in HD center in [place], [place]. Kathryn was provided with [facility] contact information. Accepting ironworker apprentice will have to be established per licensed master social worker. Arrangements for transfer may take weeks. If patient to transfer to [place] and unable to stay until outpt HD arrangements coordinated patient will have to attend local hospital in [place] for further HD treatments until oupt arrangements in place. HD licensed master social worker to contact DEMETRIA back with further information regarding outpt HD assistance transfer. Patient states that her mother in law's home address in [place] is as follows:[address] [place] [address]. SW will continue to follow. PLAN: Patient is homeless and residing in a van. Patient's mother in law will provide avaialble funds upon discharge for assistance with bus ticket to [place], [place]. DEMETRIA contacted outpt [facility] regarding outpt HD transfer to [facility] facility in [place], [place]. SW to follow. Tracy VALADEZ
[2016-07-19 13:23] VITALS: BP 129/69; PULSE 94; RESP 22; O2SAT 96
--- NOTE | 2016-07-19 16:58 | NUR ---
LUIS completed with patient at bedside
--- NOTE | 2016-07-19 20:12 | PCM.PNMED ---
Subjective Date of Service Jul 19, 2016 Subjective pt c/o weakness, not able to get out of bed, also c/o orthopnea, had to elevated HOB>30 for sleeping PT eval pending HD plan for tomorrow. plan to get CT per renal today given parathyroidism Exam Vital Signs Vital Sign - Last Date Time Temp Pulse Resp B/P Pulse Ox O2 Delivery O2 Flow Rate FiO2 07/19/16 13:23 36.7 94 22 129/69 96 Room Air Intake and Output 07/18/16 07/18/16 07/19/16 Cumulative From/Thru 15:00 23:00 07:00 07/17/16 10:41 - 07/19/16 06:32 Intake Total 90 ml 620 ml 400 ml 1860 ml Output Total 3025 ml 0 ml 0 ml 6025 ml Balance -2935 ml 620 ml 400 ml -4165 ml Intake Oral 90 ml 620 ml 400 ml 1860 ml Output Urine Total 25 ml 0 ml 0 ml 25 ml Ultrafiltrate 3000 ml 6000 ml # Bowel Movements 0 0 0 Exam obese, female, NAD, no JVD, MMM RRR, nl s1 s2 no mrg CTAB no w,c S,ND,NT,BS+ warm, no edema IVs and Medications Medications Reviewed: Medications were reviewed in detail Lab and Diagnostics Result Diagram: 07/19/1683407/19/16 0835 Assessment & Plan 50-year-old female past medical history significant for end-stage renal disease dialysis dependent in addition to asthma, presenting to emergency room via EMS following greater than 2 weeks cessation of hemodialysis treatment, and noted to have profoundly elevated renal functions and gross electrolyte disturbances including a potassium of greater than 7. Now admitted for emergent dialysis therapy, restarted her medications, further medical evaluation and treatment. # . severe Hyperkalemia,resolved - Secondary to missed dialysis ,patient with end-stage renal failure - s/p calcium gluconate ,insulin and dextrose - Currently demonstrating no evidence of arrhythmia hemodynamically stable -had emergent dialysis , next session tomorrow # . End-stage renal disease, dialysis dependent - Dr. Zhao, nephrology,had emergent dialysis 07/17 - EKG was reassuring in the ER, and patient is currently monitored on telemetry though no evidence of arrhythmia noted at this time. - continue two phos binder, thiosulfate infusion during HD for calciphylaxis -ordered CT neck by given hyperPTH to rule out primary hyperPTH #. Asthma - Continue home nebulizer therapies - Patient currently saturating well on room air does not appear in acute exacerbation. #. Chronic pain - As patient has been off methadone for a number of days we will restart at a lower dosage of 5 mg daily, consider further titration based on pain symptoms should she not demonstrate adverse effects/evidence of respiratory depression #. Anxiety - Restart patient's evening Klonopin for help with sleep. - She is generally provided Xanax prior to dialysis therapies that she did not require it today and we will defer restarting that to a later date. Disposition: plan to d/c tomorrow after HD, needs to PT eval, [facility]. GI Prophylaxis: Not indicated VTE Mechanical Devices: Intermittant Pneumatic CD Resuscitation Status: CPR: Attempt Resuscitation Time spent 35min Lizz Martinez MD Jul 19, 2016 20:12
--- NOTE | 2016-07-19 20:54 | NUR ---
Dizziness P- Pt. experiencing dizziness with position change I- Discussed effects of dialysis and having 6L of fluid taken off in the last 2 days/medication-pt. education with respect to how both factors influence the body. E- Pt. agrees to mason position slowly and wait for assistive personnel to be present while experiencing sx. S- Bed locked and in low position. Call light within reach.
[2016-07-19 21:18] VITALS: BP 131/81; PULSE 99; RESP 20; O2SAT 96
[2016-07-20 04:38] VITALS: BP 131/76; PULSE 89; RESP 20; O2SAT 95
--- NOTE | 2016-07-20 05:40 | NUR ---
activity Pt remained in bed for the shift, no complaints of pain or discomfort. Pt is alert and oriented x4, and RA. Will continue to monitor progress.
[2016-07-20 07:18] LABS: BASOPHILS % (AUTO) 0.5 % (0-3); EOSINOPHILS % (AUTO) 5.8 % (0-5); MONOCYTES % (AUTO) 7.6 % (4-12); Mean Corpuscular Hemoglobin 27.9 pg (27.0-35.0); Mean Corpuscular Volume 87.1 fL (81-100); NEUTROPHILS % (AUTO) 55.1 % (40-74); Platelet Count 428 bil/L (150-400)
[2016-07-20] MEDS: Lanthanum Carbonate 500 mg Chewable Tablet PO SCH ×2 (07:58→14:23)
--- NOTE | 2016-07-20 09:06 | NUR ---
off floor pt having dialysis, transported to room 244 by [facility] JED
[2016-07-20 09:09] VITALS: BP 162/87; PULSE 96
[2016-07-20] MEDS: Ondansetron 2 mg/mL 2 mL Inj IVPUSH PRN (11:28)
[2016-07-20] MEDS ORDERED: SEVE800T7 PO (11:37)
[2016-07-20] MEDS ORDERED: ZYL100 PO (11:39)
[2016-07-20] MEDS ORDERED: CINA60TA PO (11:39)
[2016-07-20] MEDS ORDERED: LANT500T PO (11:39)
[2016-07-20] MEDS ORDERED: METO2.5T12 PO (11:39)
--- NOTE | 2016-07-20 11:39 | PCM.PNMED ---
Subjective Date of Service Jul 20, 2016 Subjective Seen during HD today. Requested benadryl and xanax prior to HD. feeling weak, pending PT. Exam Vital Signs Vital Sign - Last Date Time Temp Pulse Resp B/P Pulse Ox O2 Delivery O2 Flow Rate FiO2 07/20/16 09:09 96 07/20/16 04:38 36.4 20 131/76 95 Room Air Intake and Output 07/19/16 07/19/16 07/20/16 Cumulative From/Thru 15:00 23:00 07:00 07/17/16 10:41 - 07/20/16 05:24 Intake Total 973 ml 800 ml 3633 ml Output Total 0 ml 0 ml 6025 ml Balance 973 ml 800 ml -2392 ml Intake Oral 973 ml 800 ml 3633 ml Output Urine Total 0 ml 0 ml 25 ml Ultrafiltrate 6000 ml # Bowel Movements 1 0 1 Exam GA: AAOx3, NAD. HEENT: mild pallor, no icteric sclerae, no JVD, no LAD atraumatic, moist mucous membrane. Heart: RRR, soft systolic murmur. Lungs: CTA, B/L. Abd: obese, ND, mild tenderness on lower abd wall, (+) subcutaneous nodules. no mass, no HSM. Ext: left AVF good thrill, no edema. multiple subcutaneous painful nodules noted on right thigh. Lab and Diagnostics Result Diagram: 07/20/1661907/20/16619 Assessment & Plan 1. End-stage renal disease--dialysis dependent. 4.5 hr, Revaclear max, DFR 600, BFR 450 UF as tolerated. Left AVF 2K, 2.5Ca, 35HCO3. IV sodium thiosulfate infusion, last 2 hr of HD. 2. Severe hyperkalemia and anion gap metabolic acidosis secondary to under- dialysis. Improving. 3. Secondary hyperparathyroidism 4. Calciphylaxis on sodium thiosulfate. 5. Hypertension with hypertensive heart disease and hypertensive nephrosclerosis. 6. Deconditioning. Plan: Next HD on Monday. continue PO4 binders and sensipar. pending CT soft tissue to eval parathyroid glands to rule out adenoma/ hyperplasia. GI Prophylaxis: Not indicated VTE Mechanical Devices: Intermittant Pneumatic CD Resuscitation Status: CPR: Attempt Resuscitation Sanket Mensah MD Jul 20, 2016 11:39
--- NOTE | 2016-07-20 11:46 | PCM.DIMED ---
Discharge Instructions Date of Service Jul 20, 2016 Dates of Hospitalization Jul 17, 2016 at 13:56 Discharge Diagnosis Discharge Diagnosis Severe uremia in the setting of missed hemodialysis Calciphylaxis Medication Instructions Please continue to take these critical medicines as instructed Cinacalcet Revenla, Fosrenol Metolazone Allopurinol Diet Low fat, Low Sodium, Heart Healthy, Renal Diet Activity No restrictions Call your provider Shortness of breath, Chest pain Patient Instructions You were hospitalized with fatigue, electrolytes imbalance from missed dialysis. you received additional sessions of dialysis, clinically improved. Please note that it is critical to be complaint to dialysis for your health, compliant to all of the medication you were given. If not, there is very high risks of developing same condition, which require hospitalization again, not limited to . Please monitor your diet, avoid high salt diet, watch your leg swelling, your weight. Follow-up plan Disposition plan explicitly addressed with social service agency director. Since you leaving to [place], you need to follow up in social service agency director at [facility] where close to your mother in laws place. Plan from social works described below. You must set up follow up visit with kidney doctor in [place]. PLAN: Patient is homeless and residing in a van. Patient's mother in law will provide [employer] funds upon discharge for assistance with bus ticket to [place], [place]. DEMETRIA contacted outpt [facility] regarding outpt HD transfer to [facility] in [place], [place]. DEMETRIA to follow. Follow-up with PCP in: 2 weeks Lizz Martinez MD Jul 20, 2016 11:42
[2016-07-20] MEDS ORDERED: SODIUM CHLORIDE 0.9% IV ONE (12:00)
[2016-07-20] MEDS ORDERED: SODIUM THIOSULFATE IV ONE (12:00)
[2016-07-20] MEDS: hydrOXYzine Pamoate 25 mg Capsule PO PRN (13:57)
--- NOTE | 2016-07-20 14:00 | NUR ---
Dialysis note: 4 1/2 hrs tx. 3000 ml net UF. Left upper arm fistula. Benadryl 25 mg IV and Xanax 3 mg po given at start of tx. Pls see DTR for VS details. Qb 400-500. Heparin given. O2 @ 2L via NC on. Na thiosulfate 25 Gm IV with Zofran 8 mg IV given fci in the tx as ordered. Tolerated tx, slept at intervals. Fistula needle sites clotted within 5 min. Report given to Tirso Appiah RN. Stable at time of transfer.
[2016-07-20 14:37] VITALS: BP 157/75; PULSE 96; RESP 18; O2SAT 96
--- NOTE | 2016-07-20 17:16 | NUR ---
discharge paperwork reviewed, no questions at this time pt denies pain/distress. pt transported via W/C by PROJECT DRILLING ENGINEER to private car to return to private residence.
--- NOTE | 2016-07-22 14:10 | PCM.DC.MED ---
Discharge Summary Date of Service Jul 20, 2016 Dates of Hospitalization Date of Hospital Admission Jul 17, 2016 at 13:56 Date of Discharge: Jul 20, 2016 Providers: Admitting Physician: Jarred Guillory DO Primary Care Physician: Maximiliano Zhao DO Attending Physician: Jarred Guillory DO Diagnosis at Time of Discharge Diagnosis at Time of Discharge Severe uremia, electrolytes imbalance in the setting of missed hemodialysis Calciphylaxis hyperparathyroidism chronic problems asthma chronic pain anxiety Consultations Nephrology Procedures XRay, CTs & MRIs PROCEDURE: X-RAY CHEST ONE VIEW, PORTABLE ([id number]) INDICATIONS: SOB TECHNIQUE: One view of the chest was acquired. COMPARISON: [facility], CR, XR CHEST 1VW (PORTABLE), 06/10/2016, 19: 06. [facility], CR, XR CHEST 1VW (PORTABLE), 06/29/2016, 12:05. FINDINGS: Surgical changes and devices: None. Lungs and pleura: No pleural effusions or pneumothorax. Lungs are clear. Mediastinum: Mediastinal contours appear normal. Heart size is normal. Bones and chest wall: No suspicious bony lesions. Overlying soft tissues appear unremarkable. IMPRESSION: No acute cardiopulmonary disease. Dictated by: Myrna Padgett M.D. on 07/17/2016 at 13:42 Approved by: Myrna Padgett M.D. on 07/17/2016 at 13:43 PROCEDURE: X-RAY LEFT ELBOW, TWO VIEWS ([id number]) INDICATIONS: Elbow "giving out". TECHNIQUE: 2 views of the elbow were acquired. COMPARISON: None. FINDINGS: Bones: No fractures or dislocations. No suspicious bony lesions. Soft tissues: No elbow joint effusion. Multiple soft tissue calcifications around elbow are noted. IMPRESSION: No fracture or dislocation. Multiple soft tissue calcifications are noted, suggesting collagen vascular disease such as scleroderm. Recommend clinical correlation. Dictated by: Myrna Padgett M.D. on 07/17/2016 at 13:43 Approved by: Myrna Padgett M.D. on 07/17/2016 at 13:44 Brief History HPI obtained by on 07/17 Patient is a 49-year-old female past medical history significant for end-stage renal disease dialysis dependent addition to hypertension and asthma well known to this hospital presenting after approximately 2 weeks of missed dialysis due to life stressors which have left her home was unable to make her appointment. Patient notes for the last 4 days things have become so bad she was essentially unable to move herself around, and rise from seated position. She had been living in her van, before moving to a hotel room without 2 days prior with the help of a friend. Her condition of course failed to improve without medical treatment dialysis, finally prompting her to call 911 earlier today. Patient can offer no real explanation as to why she had not sought help sooner, states she felt overwhelmed by stress from homelessness and lack of funds/resources, and could not bring herself to come to office for further care. She additionally had difficulty with transportation, and other than 911 was not sure how she would get herself to treatment. Time of evaluation patient reported passive emergency department she is provided number of medications to address her severe hyperkalemia, and was beginning to be set up for emergent dialysis given land findings could be discussed below. Patient noted she really been feeling significantly better since presenting to the emergency department, states this is happened in the past multiple times and she generally appears rapidly once appropriate treatment has been provided. She has no acute complaints at this time. He is on chronic methadone for pain though has been off it the last couple of days, have been rationing pills and taking only 5mg up until the last 2 days when she ran out completely. She has not fact been taking no other medications last couple of weeks, including all blood pressure and renal medications. She denies chest pain currently, also denies palpitations or any shortness of breath. He had been short of breath prior neurologic treatments that were provided her in emergency department. Denies any nausea or vomiting. Denies dizziness changes in vision or any change in her mentation ability to concentrate. Does endorse generalized fatigue and low energy level but this has been chronic over the last couple of weeks, as noted above worsening over the last couple of days. Also denies fever chills or sweats. Hospital Course 50-year-old female past medical history significant for end-stage renal disease dialysis dependent in addition to asthma, presenting to emergency room via EMS following greater than 2 weeks cessation of hemodialysis treatment, and noted to have profoundly elevated renal functions and gross electrolyte disturbances including a potassium of greater than 7. Now admitted for emergent dialysis therapy, restarted her medications, further medical evaluation and treatment. pt received multiple sessions of dialysis, closely followed up by nephrology. electrolytes were stable upon d/c. Pt was strongly encouraged not to discontinue dialysis. It was noted that pt has calciphylaxis per renal, also received thiosulfate infusion during HD, two phos binder were continued. Also noted to have hyperPTH, CT of neck to rule out hyperplasia/adenoma was pending upon d/c. Given her current status(undomicilled), safe discharge was an issue, finally, pt was being discharged to her friend's house in the area, then possibly moving to [place](see details in SW note), follow up dialysis were informed and arranged as well. # . severe Hyperkalemia,resolved - Secondary to missed dialysis ,patient with end-stage renal failure - s/p calcium gluconate ,insulin and dextrose - Currently demonstrating no evidence of arrhythmia hemodynamically stable -had emergent dialysis 07/17,, next session tomorrow # . End-stage renal disease, dialysis dependent - Dr. Zhao, nephrology,had emergent dialysis 07/17 - EKG was reassuring in the ER, and patient is currently monitored on telemetry though no evidence of arrhythmia noted at this time. - continue two phos binder, thiosulfate infusion during HD for calciphylaxis -ordered CT neck by given hyperPTH to rule out primary hyperPTH #. Asthma - Continue home nebulizer therapies - Patient currently saturating well on room air does not appear in acute exacerbation. #. Chronic pain - As patient has been off methadone for a number of days we will restart at a lower dosage of 5 mg daily, consider further titration based on pain symptoms should she not demonstrate adverse effects/evidence of respiratory depression #. Anxiety - Restart patient's evening Klonopin for help with sleep. - She is generally provided Xanax prior to dialysis therapies that she did not require it today and we will defer restarting that to a later date. Disposition: plan to d/c tomorrow after HD, needs to PT eval, expect to d/c to residential. Exam Vital Signs (Last) Date Time Temp Pulse Resp B/P Pulse Ox O2 Delivery O2 Flow Rate FiO2 07/20/16 14:37 36.7 96 18 157/75 96 Room Air Exam obese, female, NAD, no JVD, MMM RRR, nl s1 s2 no mrg CTAB no w,c S,ND,NT,BS+ warm, no edema Test 07/17/16 11:00 07/18/16 07:00 07/19/16 08:35 07/20/16 06:20 Hold Quinteros Top Tube Received (Received) Parathyroid Hormone (Intact) 2461pg/mL (15-65) Phosphorus Level 6.9mg/dL (2.5-4.9) Magnesium Level 1.9mg/dL (1.6-2.6) White Blood Count 6.2th/mm3 (3.8-10.1) Red Blood Count 2.80mil/mm3 (3.90-5.20) Hemoglobin 7.8g/dL (12.0-15.6) Hematocrit 24.4% (35.0-46.0) Mean Corpuscular Volume 87.1fL (81-100) Mean Corpuscular Hemoglobin 27.9pg (27.0-35.0) Mean Corpuscular Hemoglobin Concent 32.0% (32.0-37.0) Red Cell Distribution Width 14.5% (12.3-15.4) Platelet Count 428bil/L (150-400) Neutrophils (%) (Auto) 55.1% (40-74) Lymphocytes (%) (Auto) 30.4% (14-46) Monocytes (%) (Auto) 7.6% (4-12) Eosinophils (%) (Auto) 5.8% (0-5) Basophils (%) (Auto) 0.5% (0-3) Sodium Level 138mEq/L (134-144) Potassium Level 5.3mEq/L (3.5-5.2) Chloride Level 88mEq/L (97-108) Carbon Dioxide Level 26mmol/L (18-29) Blood Urea Nitrogen 36mg/dL (6-24) Creatinine 8.46mg/dL (0.57-1.00) Estimat Glomerular Filtration Rate 7mL/min (>59) Glucose Level 91mg/dL (60-99) Calcium Level 7.5mg/dL (8.5-10.1) Total Bilirubin 0.2mg/dL (0.0-1.2) Aspartate Amino Transf (AST/SGOT) 14U/L (0-50) Alanine Aminotransferase (ALT/SGPT) 17U/L (0-32) Alkaline Phosphatase 173U/L (25-150) Total Protein 6.1g/dL (6.4-8.4) Albumin 3.4g/dL (3.4-5.0) Discharge Medications Discharge Medications Allopurinol (Allopurinol) 100 Mg Tablet 100 MG PO BID Prescribed by: LIZZ MARTIN MD Alprazolam (Alprazolam) 1 Mg Tablet 3 MG PO MWF (Reported) Cinacalcet HCl (Sensipar) 60 Mg Tablet 60 MG PO BID Prescribed by: LIZZ MARTIN MD Clonazepam (Klonopin) 1 Mg Tablet 1 MG PO HS (Reported) Lanthanum Carb Chew (Fosrenol Chew) 500 Mg Chew 500 MG PO TIDWM Prescribed by: LIZZ MARTIN MD Methadone (Methadone) 10 Mg Tab 10 MG PO TID (Reported) Metolazone (Metolazone) 2.5 Mg Tablet 10 MG PO BID Prescribed by: LIZZ MARTIN MD Sevelamer Carbonate (Renvela) 800 Mg Tablet 1,600 MG PO TIDWM Prescribed by: LIZZ MARTIN MD As needed Albuterol HFA (Albuterol HFA) 8.5 Gm Hfa.aer.ad 1 PUFF IH Q4 PRN PRN For Shortness of Breath (Reported) Omeprazole (Omeprazole) 20 Mg Capsule.dr Q2DAY PRN PRN For Dyspepsia or Heartburn (Reported) hydrOXYzine Hcl (HydrOXYzine Hcl) 25 Mg Tablet 25 MG PO TID PRN PRN For Itching (Reported) Additional med instructions Please continue to take these critical medicines as instructed Cinacalcet Revenla, Fosrenol Metolazone Allopurinol Followup Plan Disposition: Long-Term Follow-up plan Disposition plan explicitly addressed with social media senior associate. Since you leaving to [place], you need to follow up in social media senior associate at [facility] where close to your mother in laws place. Plan from social works described below. You must set up follow up visit with kidney doctor in [place]. PLAN: Patient is homeless and residing in a van. Patient's mother in law will provide avaialble funds upon discharge for assistance with bus ticket to [place], [place]. DEMETRIA contacted outpt [facility] regarding outpt HD transfer to [facility] in [place], [place]. SW to follow. Discharge Diet: Low fat, Low Sodium, Heart Healthy, Renal Diet Discharge Activity: No restrictions Patient Instructions You were hospitalized with fatigue, electrolytes imbalance from missed dialysis. you received additional sessions of dialysis, clinically improved. Please note that it is critical to be complaint to dialysis for your health, compliant to all of the medication you were given. If not, there is very high risks of developing same condition, which require hospitalization again, not limited to . Please monitor your diet, avoid high salt diet, watch your leg swelling, your weight. Follow-up with PCP in: 2 weeks Time spent 65min Lizz Martin MD Jul 20, 2016 17:03
== END 2016-07-20 17:24 | disposition home or self-care (01) | DRG 640 ==
LOC: SED 10:20 → MPC 13:56
PROVIDERS: ADMIT Family Medicine; ATTEND Family Medicine
PROC: 5A1D60Z (ICD-10-PCS; principal; 2016-07-17)
DX: E87.5 Hyperkalemia (principal); N18.6 End stage renal disease; Z68.41 Body mass index [BMI] 40.0-44.9, adult; I13.11 Hypertensive heart and chronic kidney disease without heart failure, with stage 5 chronic kidney disease, or end stage renal disease; N28.89 Other specified disorders of kidney and ureter; Z99.2 Dependence on renal dialysis; Z59.0 Homelessness; Z91.15 Patient's noncompliance with renal dialysis; J45.909 Unspecified asthma, uncomplicated; G89.29 Other chronic pain; F41.9 Anxiety disorder, unspecified; R53.81 Other malaise; E87.2 Acidosis

== ENCOUNTER 2016-07-27 12:36 | Inpatient (IN) | payer MEDICAID, MEDICARE, OTHER ==
[~2016-07-27] VITALS: Ht 160 cm; Wt 112.7 kg
[~2016-07-27 12:36] MED LIST changes: -NEPHVIT PO; +OMEP20CA11 PO; +SEVE800T7 PO
[2016-07-27 12:42] VITALS: BP 143/86; PULSE 91; RESP 18; O2SAT 99
[2016-07-27] MEDS ORDERED: Albuterol HFA 60 Puff 8 Gm Inhaler INHALATION PRN (13:55)
[2016-07-27 14:20] LABS: BASOPHILS % (AUTO) 0.5 % (0-3); EOSINOPHILS % (AUTO) 2.1 % (0-5); MONOCYTES % (AUTO) 6.9 % (4-12); Mean Corpuscular Hemoglobin 27.5 pg (27.0-35.0); Mean Corpuscular Volume 86.2 fL (81-100); NEUTROPHILS % (AUTO) 72.8 % (40-74); Platelet Count 505 bil/L (150-400)
--- NOTE | 2016-07-27 14:29 | ED.REPORT ---
HPI-Extremity Problem Lower Date of Service Jul 27, 2016 ED Provider: Umer Camacho PA-C Mariia is a 50-year-old female with a history of end-stage renal disease, left TKA, right total hip, hypertension, gout, anxiety, asthma presents with a chief complaint of left hip pain. She reports that she attempted to rise from bed this morning and felt a pop in her left hip and complains of pain distributed over her entire left leg. States she has been unable to walk for a week. She was discharged from this hospital approximately one week ago after treatment for hyperkalemia. She has missed her last 2 dialysis appointments. He has secondary complaints of left shoulder and bilateral elbow pain related to these joints "popping out" as people attempted to help her move. She states that the left shoulder has been x-rayed and shows no sign of a fracture. States she has been unable to use her arms for the last week. She also reports an area of redness and swelling proximal to an IV site on her right arm from her previous admission. Also complains of bruising and tenderness around the fistula in her left arm Admits coughing, wheezing, shortness of breath. Denies fever, chills , sweats, abdominal pain, vomiting. Nursing Notes Stated Complaint: FLUID OVERLOAD/NEED DIALYSIS Chief Complaint: Extremity Trauma Nursing Notes Reviewed: Yes Allergies: Coded Allergies: codeine (Verified Allergy, Severe, RASH, HEADACHE, 06/29/16) hydrocodone (Verified Allergy, Severe, RASH, HEADACHE, 06/29/16) latex (Verified Allergy, Severe, RASH, HIVES, DIFFICULTY BREATHING, 06/29/16 ) diclofenac sodium (Verified Allergy, Mild, diarrhea, vomiting, 06/29/16) Pork (Verified Allergy, Unknown, rash, headache, n/v, 06/29/16) colchicine (Verified Adverse Reaction, Severe, Diarrhea, N/V, 06/29/16) Uncoded Allergies: EGGS (Allergy, Mild, rash, headache, n/v, 07/16/13) Scheduled Allopurinol (Allopurinol) 100 Mg Tablet 100 MG PO BID Alprazolam (Alprazolam) 1 Mg Tablet 3 MG PO MWF prior to dialysis Cinacalcet HCl (Sensipar) 60 Mg Tablet 60 MG PO BID Clonazepam (Klonopin) 1 Mg Tablet 1 MG PO HS Lanthanum Carb Chew (Fosrenol Chew) 500 Mg Chew 500 MG PO TIDWM Methadone (Methadone) 10 Mg Tab 20 MG PO TID Metolazone (Metolazone) 2.5 Mg Tablet 10 MG PO BID Sevelamer Carbonate (Renvela) 800 Mg Tablet 1,600 MG PO TIDWM Scheduled PRN Albuterol Sulfate (Ventolin HFA Inhaler) 200 Puff/18 Gm Inhaler 1-2 PUFF INH Q4 PRN PRN For Wheezing Omeprazole (Omeprazole) 20 Mg Capsule.dr 20 MG PO Q2DAY PRN PRN For Dyspepsia or Heartburn hydrOXYzine Hcl (HydrOXYzine Hcl) 25 Mg Tablet 25 MG PO TID PRN PRN For Itching General Time Seen by MD: 12:44 Chief Complaint Hip injury left Past Medical History Past Medical History 1. End-stage renal disease, on hemodialysis. 2. Chronic anemia likely secondary to underlying end-stage renal disease. 3. Hypertension. 4. Gout. 5. Obstructive sleep apnea (on CPAP). 6. Anxiety. 7. Renal osteodystrophy. 8. Asthma. Past Surgical History Left knee replacement Right hip replacement Left AV fistula Right AV fistula Bilateral carpel tunnel surgery Tubal ligation Left knee arthroscopy Nonfunctional arteriovenous fistula, anastomosis lesion, status post successful angioplasty Smoking History Never Smoker Social History Drug Use: Denies drug use Other Social History: Local resident Ambulatory Status Independent Review of Systems General: Denies fever, chills, malaise. HEENT: Denies congestion, headache, sore throat. Respiratory: Admits dyspnea, cough, shortness of breath, wheezing. Cardiovascular: Denies chest pain, palpitations. Gastrointestinal: Admits diarrhea. Denies vomiting, abdominal pain. Genitourinary: Denies frequency, urgency, dysuria, hematuria. Otherwise as noted in HPI. Physical Exam General: Disheveled, obese, moderate distress. Sitting up on gurney, wincing periodically. Head: Atraumatic, normocephalic. Eyes: No scleral icterus or injection. No discharge. Vision grossly intact. ENT: Voice clear, hearing grossly intact. Respiratory: Regular rate and rhythm. Breath sounds present, clear to auscultation and equal bilaterally. No respiratory distress. No increased work of breathing, speaks in complete sentences. Cardiovascular: Regular rate and rhythm, without murmur, gallop or rub. No pedal edema. Gastrointestinal: Obese abdomen non-tender without guarding or rebound. Bowel sounds normoactive. Skin: Warm and moist. Back: Normal to inspection, normal range of motion, no midline spinous process tenderness. Left hip: Tender to palpation, Full passive range of motion, pain aggravated by ROM. Patient can be coaxed to stand and take a few shuffling steps. Highly resistant to bearing weight. Right hip: Full range of motion, mild pain with range of motion. Right knee: Mildly tender, full range of motion. Left knee: Mildly tender, full range of motion, midline anterior scar consistent with TKA. No redness, swelling, warmth. Feet: Brisk capillary refill, dorsalis pedis pulses present and bounding bilaterally, posterior tibialis pulse is not appreciated. Left arm: Significant area of bruising and tenderness on medial aspect of the upper arm. Right arm: 1 cm area of mild redness, induration and tenderness proximal to an IV site. Neurological: Grossly nonfocal. Psychological: Alert and oriented. Speech appropriate, linear and logical. Behavior appropriate. Initial Vital Signs Vital Signs (First) Date Time Temp Pulse Resp B/P Pulse Ox O2 Delivery O2 Flow Rate FiO2 07/27/16 12:42 36.8 91 18 143/86 99 Room Air Initial VS: Reviewed, Vital signs normal Interpretation & Diagnostics Interpretation & Diagnostics: PROCEDURE: X-RAY LEFT HIP COMPLETE, MINIMUM TWO VIEWS ([id number]) INDICATIONS: left hip pain IMPRESSION: No fracture. No osseous lesion. If symptoms and/or clinical suspicion for pathology persists, further assessment with repeat radiographs or advanced imaging (e.g. CT, MRI or bone scan) may be helpful for further assessment. Lab Results Interpretation Result Diagram: 07/27/16 1413 07/27/16 1413 Test 07/27/16 14:13 White Blood Count 8.5th/mm3 (3.8-10.1) Red Blood Count 2.98mil/mm3 (3.90-5.20) Hemoglobin 8.2g/dL (12.0-15.6) Hematocrit 25.7% (35.0-46.0) Mean Corpuscular Volume 86.2fL (81-100) Mean Corpuscular Hemoglobin 27.5pg (27.0-35.0) Mean Corpuscular Hemoglobin Concent 31.9% (32.0-37.0) Red Cell Distribution Width 14.4% (12.3-15.4) Platelet Count 505bil/L (150-400) Neutrophils (%) (Auto) 72.8% (40-74) Lymphocytes (%) (Auto) 17.2% (14-46) Monocytes (%) (Auto) 6.9% (4-12) Eosinophils (%) (Auto) 2.1% (0-5) Basophils (%) (Auto) 0.5% (0-3) Sodium Level 136mEq/L (134-144) Potassium Level 6.9mEq/L (3.5-5.2) Chloride Level 91mEq/L (97-108) Carbon Dioxide Level 17mmol/L (18-29) Blood Urea Nitrogen 96mg/dL (6-24) Creatinine 16.26mg/dL (0.57-1.00) Estimat Glomerular Filtration Rate 3mL/min (>59) Glucose Level 91mg/dL (60-99) Calcium Level 8.9mg/dL (8.5-10.1) Total Bilirubin 0.4mg/dL (0.0-1.2) Aspartate Amino Transf (AST/SGOT) 12U/L (0-50) Alanine Aminotransferase (ALT/SGPT) 14U/L (0-32) Alkaline Phosphatase 308U/L (25-150) Total Protein 6.7g/dL (6.4-8.4) Albumin 3.8g/dL (3.4-5.0) Hold Quinteros Top Tube Received (Received) Re-Eval/Medical Decision Med Decision/Clinical Course 50-year-old female with end-stage renal disease, noncompliant with dialysis presents with chief complaint of left hip pain. X-rays of left hip revealed no fracture. No indication of infection on CBC. Discussed the case with the patient's wet washer machine, Dr. Zhao who met with and examined the patient. Accepts admission. Consultation : Referral / Consult Name: Maximiliano Zhao DO Consulted With: Nephrology Call Returned at: 14:40 Enterprise Systems Architect: Accepts admit Discharge & Departure Impression: Primary Impression: ESRD on dialysis Additional Impression: Noncompliance Disposition: ADMITTED TO HOSPITAL Referrals: Maximiliano Zhao DO (PCP) EDSupervising Provider for APC: Isrrael Fox MD copies to: Maximiliano Zhao Seth PA-C Jul 27, 2016 14:29
[2016-07-27 15:01] VITALS: BP 152/82; PULSE 99; O2SAT 96
--- NOTE | 2016-07-27 15:04 | DRSVH ---
PROCEDURE: X-RAY LEFT HIP COMPLETE, MINIMUM TWO VIEWS ([id number]) INDICATIONS: left hip pain TECHNIQUE: 2 views of the hip were acquired. COMPARISON: None. FINDINGS: Bones: No fractures or dislocations. No suspicious bony lesions. The visualized pelvic ring appear s intact. Soft tissues: No suspicious soft tissue calcifications or masses. IMPRESSION: No fracture. No osseous lesion. If symptoms and/or clinical suspicion for pathology pers ists, further assessment with repeat radiographs or advanced imaging (e.g. CT, MRI or bone scan) may be helpful for further assessment. Dictated by: Love Sarmiento MD, PhD on 07/27/2016 at 15:02 Approved by: Love Sarmiento MD, PhD on 07/27/2016 at 15:02
[2016-07-27] MEDS ORDERED: Ondansetron 2 mg/mL 2 mL Inj IVPUSH PRN (15:35)
[2016-07-27] MEDS ORDERED: Alum-Mag Hydrox-Simeth 30 mL Suspension PO PRN (15:35)
[2016-07-27] MEDS ORDERED: ALBU18HF INH (15:37)
--- NOTE | 2016-07-27 15:55 | CONS ---
[address] [address] CONSULTATION REPORT PATIENT: ELIZABETH TERAN : 1965 MR#: [id number] ADMIT: 07/27/2016 JOB ID: [id number] DATE OF SERVICE: 07/27/2016 RENAL CONSULTATION: HISTORY: The patient is a 50-year-old white female with a history of longstanding end-stage renal disease and chronic noncompliance. She came to the emergency department today because of generalized weakness, left hip pain, and has missed her last two dialysis treatments. A renal consultation is being sought for further evaluation of her chronic kidney disease. She has a history of end-stage renal disease secondary to hypertension. She also has a history of severe renal osteodystrophy and calciphylaxis. Over the last several months, she has gone up to two weeks without dialysis citing a number of personal issues. Despite numerous offers of assistance from social worker assistant and our dialysis unit, she continues to miss dialysis. She was most recently in the hospital approximately two weeks ago having missed dialysis for two weeks prior to this. We aggressively dialyzed her and she subsequently came to one appointment at the dialysis unit and then has not shown up since then. This afternoon in the emergency department her potassium was 6.9, bicarbonate was 17 and creatinine was 16.26. PAST MEDICAL HISTORY: Is significant for: 1. End-stage renal disease. 2. Hypertension with hypertensive heart disease and hypertensive nephrosclerosis. 3. Calciphylaxis. 4. Secondary hyperparathyroidism due to chronic kidney disease. 5. Gout. 6. Obstructive sleep apnea. 7. Asthma. 8. Osteoarthritis. PAST SURGICAL HISTORY: Is significant for: 1. A left knee replacement. 2. Right hip replacement, both the left and right. 3. AV fistula. 4. Carpal tunnel release. 5. Tubal ligation. 6. Arthroscopy of the knee. 7. Angioplasty of stenosed grafts in the past. ALLERGIES: She is allergic to EGGS, PORK, CODEINE, COLCHICINE, DICLOFENAC, HYDROCODONE and LASIX. PAST SOCIAL HISTORY: She denies use of alcohol, tobacco or illicit drugs. CURRENT MEDICATIONS: At time of admission include allopurinol, alprazolam, Senna , clonazepam, Fosrenol, methadone, metolazone, and Renvela. FAMILY HISTORY: Noncontributory. REVIEW OF SYSTEMS: Is remarkable only for some generalized weakness, intermittent nausea but no vomiting and some anorexia. PHYSICAL EXAMINATION: Revealed an obese 50-year-old white female, who looked much older than her stated age. Her blood pressure is 143/86 with a pulse of 91. HEENT examination is remarkable for pale sclerae. Neck is supple without adenopathy or thyromegaly. There is a uremic fetor noted on her breath. There is evidence of jugular venous distention. Lungs showed some bibasilar rales. Heart was regular and rhythmical without rub, click, gallop or murmur. Abdomen is soft, without any tenderness, rebound, guarding, masses or hepatosplenomegaly. Extremities did not show any evidence of any cyanosis or clubbing. However, some bilateral lower extremity edema is noted. LABORATORY EXAMINATION: Her white count is 8.5, hemoglobin 8.2, hematocrit 25.7. Red cell indices, platelet count and differential were normal. Sodium is 136, potassium 6.9, chloride 91, CO2 of 17, BUN and creatinine were 96 and 16.26. Her alkaline phosphatase is elevated at 308. From her previous admissions, her parathyroid hormone level was greater than 2200. IMPRESSION: 1. End-stage renal disease-dialysis dependent. 2. Chronic noncompliance. 3. Hyperkalemia. 4. Calciphylaxis. 5. Hypertension with hypertensive heart disease and hypertensive nephrosclerosis. RECOMMENDATION: The patient is being admitted to the hospital and I will dialyze her today for four hours on a Revaclear Max dialyzer and a 2 potassium bath. Will also give 1500 of heparin and 500 in an hour. I will write to have approximately 2-3 L of fluid to be removed and 25 g of sodium thiosulfate to be given. Once again, I would like to thank you for allowing me to participate in the care of this rather unfortunate patient. I will be following her closely with you.
--- NOTE | 2016-07-27 16:00 | NUR ---
Dialysis Pt arrived to dialysis room via stretcher from ER. 5 person transfer, with slide board into bed. reviewed H&P.
[2016-07-27 16:37] VITALS: BP 140/82; PULSE 93
[2016-07-27] MEDS ORDERED: Sodium Thiosulfate 25% 12.5 Gm/50 mL Inj IV PRN (17:50)
[2016-07-27] MEDS ORDERED: SODIUM CHLORIDE 0.9% IV PRN (18:40)
[2016-07-27] MEDS ORDERED: SODIUM THIOSULFATE IV PRN (18:40)
[2016-07-27] MEDS: Ondansetron 2 mg/mL 2 mL Inj IVPUSH PRN (19:07)
--- NOTE | 2016-07-27 21:35 | NUR ---
Dialysis note: 4 1/2 hrs tx. 4000 ml net UF. Left upper arm fistula. Pls see DTR for VS details. Qb 480-500. Heparin given. Na thiosulfate 25 Gm IV with Zofran 8 mg IV given long-term in the tx as ordered. Tolerated tx, slept at intervals. Fistula needle sites clotted within 5 min. Report given to Ligia Roman RN. Stable at time of transfer.
[2016-07-27] MEDS ORDERED: [UNRECOGNIZED DRUG - CODE] PO (22:27)
[2016-07-27] MEDS ORDERED: MIDO10TA PO (22:29)
[2016-07-27] MEDS ORDERED: METO10TA7 PO (22:30)
[2016-07-27] MEDS ORDERED: FOLI1TAB34 PO (22:32)
[2016-07-27 22:52] VITALS: BP 133/69; PULSE 113; RESP 17; O2SAT 95
[2016-07-28 00:10] VITALS: BP 124/70; PULSE 103; RESP 17; O2SAT 96
--- NOTE | 2016-07-28 02:32 | NUR ---
Admit to [facility] Patient arrived to [facility] room 1004 around 2140 from dialysis treatment on [facility]. A&Ox3, answering questions appropriately. Pleasant and cooperative with care. Fistula thrill & bruit present. Bruising noted to BL upper arms that patient states is from being helped up the stairs by her boyfriend and someone else. Complaints of 8/10 headache pain r/t tooth ache, received Tylenol PO with somewhat effective results. Headache resolved, but toothache still present. Oriented to room and call light. Admit and med rec completed in ER on previous shift.
[2016-07-28 04:45] VITALS: BP 138/79; PULSE 97; RESP 17; O2SAT 96
[2016-07-28] MEDS ORDERED: Sodium Thiosulfate 25% 12.5 Gm/50 mL Inj IV PRN (06:00)
--- NOTE | 2016-07-28 07:48 | NUR ---
Dialysis Off unit at 0740 for dialysis as ordered by Dr. Zhao. Discussed with JOSE Bonilla that pt did not have hospitalist team so no morning labs were drawn and we had no orders for diet, etc. She will follow up with Dr. Zhao on this. Report given to Micheline GARCIA and all questions answered. Pt reports headache is better today than yesterday but still a 6/10.
[2016-07-28 08:00] VITALS: BP 140/96; PULSE 97
[2016-07-28] MEDS: Ondansetron 2 mg/mL 2 mL Inj IVPUSH PRN ×2 (09:00→11:05)
[2016-07-28] MEDS: SODIUM CHLORIDE 0.9% IV PRN ×2 (10:30→12:19)
[2016-07-28] MEDS: SODIUM THIOSULFATE IV PRN ×2 (10:30→12:19)
--- NOTE | 2016-07-28 11:49 | PCM.PNMED ---
Subjective Date of Service Jul 28, 2016 Subjective Patient complains of some nausea this morning. Otherwise she denies any chest pain shortness of breath cough or wheezing. Exam Vital Signs Vital Sign - Last Date Time Temp Pulse Resp B/P Pulse Ox O2 Delivery O2 Flow Rate FiO2 07/28/16 04:45 36.6 97 17 138/79 96 Room Air Intake and Output 07/27/16 07/27/16 07/28/16 Cumulative From/Thru 15:00 23:00 07:00 07/27/16 12:42 - 07/28/16 04:45 Intake Total 200 ml 200 ml Output Total 4000 ml 0 ml 4000 ml Balance -4000 ml 200 ml -3800 ml Intake Oral 200 ml 200 ml Output Urine Total 0 ml 0 ml Ultrafiltrate 4000 ml 4000 ml # Bowel Movements 0 0 Exam Lungs were clear to auscultation heart is regular rhythmical with a soft systolic murmur. Abdomen is soft without tenderness rebound guarding masses or hepatosplenomegaly. Extremities showed some mild bilateral lower extremity edema. Lab and Diagnostics Result Diagram: 07/27/16 1413 07/27/16 1413 Assessment & Plan Impression #1 end-stage renal disease dialysis dependent #2 chronic noncompliance #3 symptomatic uremia secondary to #2 Recommendation #1 patient will be dialyzed today for foreign a half hours on a revaclear max dialyzer, 2 potassium, 1500 of troponin is loading dose and 500 now or in 2-3 kg to be removed. She will also be given 25 g of sodium thiosulfate. Maximiliano Zhao DO Jul 28, 2016 11:49
--- NOTE | 2016-07-28 12:49 | NUR ---
Dialysis note: 4 1/2 hr tx. Net UF 3.0 SHELBY fistula accessed without difficulty with 2 15g buttonhole needles. Pt c/o nausea; 4 mg IV zofran given during tx x2. Sodium thiosulfate, 25 Gm given over 2 hours. c/o headache but pt declined tylenol; relieved after eating. Site held and secured with gauze and tape. Pt returned to floor stable. Please see DTR for complete record of VS.
--- NOTE | 2016-07-28 13:03 | NUR ---
Dialysis Patient left unit in hospital bed after dialysis was completed. Report given by Irene care transition coordinator.
[2016-07-28 16:05] VITALS: BP 111/65; PULSE 105; RESP 24; O2SAT 95
[2016-07-28 19:50] VITALS: BP 104/68; PULSE 104; RESP 18; O2SAT 97
--- NOTE | 2016-07-29 02:20 | NUR ---
Activity Patient in bed all of shift so far. Is using BUE more to reposition and scoot self up in bed. States she feels like her strength is finally starting to come back in her BUE. Still continues to feel weak in her BLE. Able to move around/reposition in bed independently. One episode of urinary incontinence resulting in full bed change. No c/o pain or discomfort. Will continue Q1hour rounding.
[2016-07-29 04:45] VITALS: BP 142/89; PULSE 102; RESP 17; O2SAT 98
--- NOTE | 2016-07-29 08:52 | NUR ---
Off Unit To [facility] room 243 for dialysis. Report given to nany De La Cruz RN. Addendum: 07/29/16 at 1404 by LEONARDO GOSS RN Returned at 12:50, no complaints per pt. States she feels "better."
--- NOTE | 2016-07-29 08:53 | NUR ---
[facility] Patient arrived to [facility] dialysis at 0845, oriented x4, no telemetry, phone message into primary nurse on [facility] Brittany Nayak RN about getting verbal report. Patient denies pain, nausea, and shortness of breath. Dialysis has not yet started, patient eating breakfast, denies any needs at this time,
[2016-07-29] MEDS ORDERED: SODIUM CHLORIDE 0.9% IV ONE (09:45)
[2016-07-29] MEDS ORDERED: SODIUM THIOSULFATE IV ONE (09:45)
[2016-07-29] MEDS ORDERED: Ondansetron 2 mg/mL 2 mL Inj IVPUSH PRN (10:00)
--- NOTE | 2016-07-29 13:08 | NUR ---
pt returned to [facility] post DIALYSIS at 1245 via bed report returned from RS RN to SH RN see tripe finisher note, intervention, and/or graphic flow chart for treatment details
--- NOTE | 2016-07-29 13:17 | NUR ---
Dialysis note 3 hr HD tx. 2000ml net UF removed. See DTR for complete vitals. 2 15 g buttonhole needles to ANSHU fistula. QB 460 thru tx. Stable tx and pt rested comfortably. Zofran and Benadryl one time dose given at start of HD per MD order. Pt held post tx. Report given and pt returned to floor stable.
[2016-07-29 15:31] VITALS: BP 156/71; PULSE 109; RESP 20; O2SAT 95
--- NOTE | 2016-07-29 15:35 | PCM.PNMED ---
Subjective Date of Service Jul 29, 2016 Subjective The patient continues to improve. She offers no new complaints and go ahead and arrange for another dialysis treatment today. Exam Vital Signs Vital Sign - Last Date Time Temp Pulse Resp B/P Pulse Ox O2 Delivery O2 Flow Rate FiO2 07/29/16 04:45 36.4 102 17 142/89 98 Room Air Intake and Output 07/28/16 07/28/16 07/29/16 Cumulative From/Thru 14:59 22:59 06:59 07/27/16 12:42 - 07/29/16 04:45 Intake Total 800 ml 600 ml 1600 ml Output Total 3000 ml 0 ml 150 ml 7150 ml Balance -3000 ml 800 ml 450 ml -5550 ml Intake Oral 800 ml 600 ml 1600 ml Output Urine Total 0 ml 150 ml 150 ml Ultrafiltrate 3000 ml 7000 ml # Voids 2 2 # Bowel Movements 0 1 1 Exam Neck supple without adenopathy thyromegaly or jugular venous distention. Lungs are clear to auscultation. Heart is regular rhythm. Systolic murmur. Abdomen is soft without any tenderness rebound guarding masses or hepatosplenomegaly. Extremities show any evidence of any clubbing cyanosis or edema. Lab and Diagnostics Result Diagram: 07/27/16 1413 07/27/16 1413 Assessment & Plan Impression #1 end-stage renal disease dialysis dependent #2 chronic noncompliance #3 symptomatic uremia secondary to #2 Recommendation #1 patient will be dialyzed today for 3 hours on a revaclear max dialyzer, 2 potassium, 1500 of heparin is loading dose and 500 now or in 1 kg to be removed. She will also be given 25 g of sodium thiosulfate. Following her dialysis treatment she can be discharged. Maximiliano Zhao DO Jul 29, 2016 15:35
--- NOTE | 2016-07-29 16:27 | NUR ---
Social Work: Brief Note: SW met with patient at bedside to discuss discharge planning needs and SW role explained. Patient reported that she is homeless, but she has called [employer] for assistance with housing once discharged. Patient felt confident that [employer] would be able to assist with an apartment. SW printed out [employer] application for the patient and patient states that she will fill out the application and send in. Patient states tat she receives approximately $1,000 a month and that she will check into an extended stay motel until she receives the assistance needed from [employer] or [employer]. Patient plans to resume dialysis at [facility] once discharged. SW contact information written on patient's white board. SW will continue to follow and assist patient. Lucía Bunch LMSW, ACYuliya
[2016-07-29 19:42] VITALS: BP 118/72; PULSE 96; RESP 18; O2SAT 95
[2016-07-30 04:45] VITALS: BP 132/82; PULSE 91; RESP 18; O2SAT 96
--- NOTE | 2016-07-30 08:09 | NUR ---
No IV access Patient C/O pain at site of IV. Patient's IV was removed. Patient had not scheduled IV medications and is likely scheduled to DC today. No new IV was started. Patient A&Ox3. Vitals stable.
--- NOTE | 2016-07-30 10:46 | PCM.PNMED ---
Subjective Date of Service Jul 30, 2016 Subjective Patient states that she feels well today and offers no new complaints. She remains afebrile and denies any nausea or vomiting. My point of view she can be discharged today. Exam Vital Signs Vital Sign - Last Date Time Temp Pulse Resp B/P Pulse Ox O2 Delivery O2 Flow Rate FiO2 07/30/16 04:45 36.4 91 18 132/82 96 Room Air Intake and Output 07/29/16 07/29/16 07/30/16 Cumulative From/Thru 15:00 23:00 07:00 07/27/16 12:42 - 07/30/16 05:23 Intake Total 1320 ml 800 ml 3720 ml Output Total 2000 ml 0 ml 0 ml 9150 ml Balance -2000 ml 1320 ml 800 ml -5430 ml Intake Oral 1320 ml 800 ml 3720 ml Output Urine Total 0 ml 0 ml 150 ml Ultrafiltrate 2000 ml 9000 ml # Voids 2 # Bowel Movements 1 0 2 Exam Lungs are clear to auscultation. Heart is regular rhythm with a soft systolic murmur. Abdomen is soft without any tenderness rebound guarding or masses noted. Extremities do not show any evidence of any edema. Lab and Diagnostics Result Diagram: 07/27/16 1413 07/27/16 1413 Assessment & Plan Impression #1 end-stage renal disease dialysis dependent #2 chronic noncompliance #3 symptomatic uremia secondary to #2 Recommendation #1 the patient can be discharged today. Maximiliano Zhao DO Jul 30, 2016 10:46
[2016-07-30] MEDS ORDERED: HYDR-656 PO (12:57)
[2016-07-30] MEDS ORDERED: MTH10T PO (12:57)
[2016-07-30] MEDS ORDERED: CLON1TAB PO (12:57)
[2016-07-30] MEDS ORDERED: ALPR1TAB7 PO (12:57)
--- NOTE | 2016-07-30 13:00 | PCM.DIMED ---
Discharge Instructions Date of Service Jul 30, 2016 Dates of Hospitalization Jul 27, 2016 at 15:23 Discharge Diagnosis Discharge Diagnosis End Stage Renal Disease Hemodialysis Diet Renal Diet Activity No restrictions Call your provider Fever or Chills, Shortness of breath, Bleeding, Chest pain, Vomitting, Excessive diarrhea Patient Instructions Follow-up Provider: Dorothy Lagos MD Follow-up with PCP in: 1 week Yris Judge MD Jul 30, 2016 12:55
--- NOTE | 2016-07-30 15:04 | NUR ---
Discharge Pt discharged to home. A&Ox3, WHITEHEAD, VSS, Pain present with mobility - tolerable, No IV access, All personal belongings in hand, Hard copy scripts provided (renewed meds), CareNotes provided on renal diet and instructed on s/sx to seek medical attention for. No questions/concerns left unanswered at time of dc. Pt wheeled off unit to bench to wait for her ride - per her request.
--- NOTE | 2016-07-30 16:33 | NUR ---
Social Work- Discharge Data: SW met with patient at bedside to discuss discharge planning needs and SW role explained. Patient reports she has called [employer] for assistance with housing. Patient plans to resume dialysis at [facility] once discharged. Pt to discharge to [facility] until housing assistance can be obtained. No discharge needs. Assessment: [place] base. Plan: Pt to discharge to [facility] until housing assistance can be obtained. No discharge needs. RORY Hogan
--- NOTE | 2016-07-30 18:12 | PCM.DC.MED ---
Discharge Summary Date of Service Jul 30, 2016 Dates of Hospitalization Date of Hospital Admission Jul 27, 2016 at 15:23 Date of Discharge: Jul 30, 2016 Providers: Admitting Physician: Maximiliano Zhao DO Primary Care Physician: Maximiliano Zhao DO Attending Physician: Maximiliano Zhao DO Diagnosis at Time of Discharge Diagnosis at Time of Discharge End Stage Renal Disease Uremia Hemodialysis Consultations RENAL CONSULTATION: HISTORY: The patient is a 50-year-old white female with a history of longstanding end-stage renal disease and chronic noncompliance. She came to the emergency department today because of generalized weakness, left hip pain, and has missed her last two dialysis treatments. A renal consultation is being sought for further evaluation of her chronic kidney disease. She has a history of end-stage renal disease secondary to hypertension. She also has a history of severe renal osteodystrophy and calciphylaxis. Over the last several months, she has gone up to two weeks without dialysis citing a number of personal issues. Despite numerous offers of assistance from web content & social media manager and our dialysis unit, she continues to miss dialysis. She was most recently in the hospital approximately two weeks ago having missed dialysis for two weeks prior to this. We aggressively dialyzed her and she subsequently came to one appointment at the dialysis unit and then has not shown up since then. This afternoon in the emergency department her potassium was 6.9, bicarbonate was 17 and creatinine was 16.26. PAST MEDICAL HISTORY: Is significant for: 1. End-stage renal disease. 2. Hypertension with hypertensive heart disease and hypertensive nephrosclerosis. 3. Calciphylaxis. 4. Secondary hyperparathyroidism due to chronic kidney disease. 5. Gout. 6. Obstructive sleep apnea. 7. Asthma. 8. Osteoarthritis. PAST SURGICAL HISTORY: Is significant for: 1. A left knee replacement. 2. Right hip replacement, both the left and right. 3. AV fistula. 4. Carpal tunnel release. 5. Tubal ligation. 6. Arthroscopy of the knee. 7. Angioplasty of stenosed grafts in the past. ALLERGIES: She is allergic to EGGS, PORK, CODEINE, COLCHICINE, DICLOFENAC, HYDROCODONE and LASIX. PAST SOCIAL HISTORY: She denies use of alcohol, tobacco or illicit drugs. CURRENT MEDICATIONS: At time of admission include allopurinol, alprazolam, Senna , clonazepam, Fosrenol, methadone, metolazone, and Renvela. FAMILY HISTORY: Noncontributory. REVIEW OF SYSTEMS: Is remarkable only for some generalized weakness, intermittent nausea but no vomiting and some anorexia. PHYSICAL EXAMINATION: Revealed an obese 50-year-old white female, who looked much older than her stated age. Her blood pressure is 143/86 with a pulse of 91. HEENT examination is remarkable for pale sclerae. Neck is supple without adenopathy or thyromegaly. There is a uremic fetor noted on her breath. There is evidence of jugular venous distention. Lungs showed some bibasilar rales. Heart was regular and rhythmical without rub, click, gallop or murmur. Abdomen is soft, without any tenderness, rebound, guarding, masses or hepatosplenomegaly. Extremities did not show any evidence of any cyanosis or clubbing. However, some bilateral lower extremity edema is noted. LABORATORY EXAMINATION: Her white count is 8.5, hemoglobin 8.2, hematocrit 25.7. Red cell indices, platelet count and differential were normal. Sodium is 136, potassium 6.9, chloride 91, CO2 of 17, BUN and creatinine were 96 and 16.26. Her alkaline phosphatase is elevated at 308. From her previous admissions, her parathyroid hormone level was greater than 2200. IMPRESSION: 1. End-stage renal disease-dialysis dependent. 2. Chronic noncompliance. 3. Hyperkalemia. 4. Calciphylaxis. 5. Hypertension with hypertensive heart disease and hypertensive nephrosclerosis. RECOMMENDATION: The patient is being admitted to the hospital and I will dialyze her today for four hours on a Revaclear Max dialyzer and a 2 potassium bath. Will also give 1500 of heparin and 500 in an hour. I will write to have approximately 2-3 L of fluid to be removed and 25 g of sodium thiosulfate to be given. Once again, I would like to thank you for allowing me to participate in the care of this rather unfortunate patient. I will be following her closely with you. Maximiliano Zhao DO Procedures XRay, CTs & MRIs X-RAY LEFT HIP COMPLETE, MINIMUM TWO VIEWS ([id number]) INDICATIONS: left hip pain TECHNIQUE: 2 views of the hip were acquired. COMPARISON: None. FINDINGS: Bones: No fractures or dislocations. No suspicious bony lesions. The visualized pelvic ring appears intact. Soft tissues: No suspicious soft tissue calcifications or masses. IMPRESSION: No fracture. No osseous lesion. If symptoms and/or clinical suspicion for pathology persists, further assessment with repeat radiographs or advanced imaging (e.g. CT, MRI or bone scan) may be helpful for further assessment. Dictated by: Love Sarmiento MD, PhD Hospital Course Impression #1 end-stage renal disease dialysis dependent #2 chronic noncompliance #3 symptomatic uremia secondary to #2 She was admitted and cared for by nephrology with daily hemodialysis for 3 days , stabilizing her uremia and enabling her to return to her outpatient dialysis regimen with Dr. Beck. On exam today heart is regular rate and rhythm without murmur Lungs are clear to auscultation bilaterally There is a loud flow bruit on the left upper arm There is no ankle edema Abdomen soft, nontender, no organomegaly. Exam Vital Signs (Last) Date Time Temp Pulse Resp B/P Pulse Ox O2 Delivery O2 Flow Rate FiO2 07/30/16 04:45 36.4 91 18 132/82 96 Room Air Test 07/27/16 14:13 07/28/16 10:02 White Blood Count 8.5th/mm3 (3.8-10.1) Red Blood Count 2.98mil/mm3 (3.90-5.20) Hemoglobin 8.2g/dL (12.0-15.6) Hematocrit 25.7% (35.0-46.0) Mean Corpuscular Volume 86.2fL (81-100) Mean Corpuscular Hemoglobin 27.5pg (27.0-35.0) Mean Corpuscular Hemoglobin Concent 31.9% (32.0-37.0) Red Cell Distribution Width 14.4% (12.3-15.4) Platelet Count 505bil/L (150-400) Neutrophils (%) (Auto) 72.8% (40-74) Lymphocytes (%) (Auto) 17.2% (14-46) Monocytes (%) (Auto) 6.9% (4-12) Eosinophils (%) (Auto) 2.1% (0-5) Basophils (%) (Auto) 0.5% (0-3) Sodium Level 136mEq/L (134-144) Potassium Level 6.9mEq/L (3.5-5.2) Chloride Level 91mEq/L (97-108) Carbon Dioxide Level 17mmol/L (18-29) Blood Urea Nitrogen 96mg/dL (6-24) Creatinine 16.26mg/dL (0.57-1.00) Estimat Glomerular Filtration Rate 3mL/min (>59) Glucose Level 91mg/dL (60-99) Calcium Level 8.9mg/dL (8.5-10.1) Total Bilirubin 0.4mg/dL (0.0-1.2) Aspartate Amino Transf (AST/SGOT) 12U/L (0-50) Alanine Aminotransferase (ALT/SGPT) 14U/L (0-32) Alkaline Phosphatase 308U/L (25-150) Total Protein 6.7g/dL (6.4-8.4) Albumin 3.8g/dL (3.4-5.0) Hold Quinteros Top Tube Received (Received) Hepatitis B Surface Antigen Negative (Negative) Discharge Medications Discharge Medications Allopurinol (Allopurinol) 100 Mg Tablet 100 MG PO BID Prescribed by: MELVINA MARTIN MD Alprazolam (Alprazolam) 1 Mg Tablet 3 MG PO MWF prior to dialysis Prescribed by: ZOHRA JUDGE MD Cinacalcet HCl (Sensipar) 60 Mg Tablet 60 MG PO BID Prescribed by: MELVINA MARTIN MD Clonazepam (Klonopin) 1 Mg Tablet 1 MG PO HS Prescribed by: ZOHRA JDUGE MD Folic Acid/Vitamin B Comp W-C (Dialyvite Tablet) 1 Each Tablet 1 EACH PO DAILY ( Reported) Lanthanum Carb Chew (Fosrenol Chew) 750 Mg Chew 750 MG PO TIDWM (Reported) Takes with Renvela Methadone (Methadone) 10 Mg Tab 20 MG PO TID Prescribed by: ZOHRA JUDGE MD Metolazone (Metolazone) 10 Mg Tablet 10 MG PO BIDWM (Reported) Midodrine (Midodrine) 10 Mg Tablet 10 MG PO MWF (Reported) Sevelamer Carbonate (Renvela) 800 Mg Tablet 1,600 MG PO TIDWM Prescribed by: MELVINA MARTIN MD hydrOXYzine Hcl (HydrOXYzine Hcl) 25 Mg Tablet 25 MG PO BID Prescribed by: ZOHRA JUDGE MD As needed Albuterol Sulfate (Ventolin HFA Inhaler) 200 Puff/18 Gm Inhaler 1-2 PUFF INH Q4 PRN PRN For Wheezing (Reported) Omeprazole (Omeprazole) 20 Mg Capsule. 20 MG PO BID PRN PRN For Dyspepsia or Heartburn (Reported) Yris Judge MD Jul 30, 2016 10:51
--- NOTE | 2016-07-30 18:30 | PCM.HPMED ---
Subjective Date of Service Jul 30, 2016 Primary Provider: Admitting Physician: Maximiliano Zhao DO Primary Care Physician: Maximiliano Zhao DO Attending Physician: Maximiliano Zhao DO Admit Status: From the Emergency Department Chief Complaint: Uremic confusion and weakness from missing her last 2 dialysis appointments due to transportation problems. History of Present Illness: This is a 50-year-old female with end-stage renal disease which she says is of unknown cause. She attends dialysis 3 times a week but had not been going the last 2 visits because of car problems. She was admitted to Dr. Zhao who managed her dialysis and is now stable for discharge. Nephrology has requested hospitalist H&P/discharge consult for discharge orders. It appears that the emergency department admitted her directly to nephrology somehow skipping the hospitalist coverage stage. Per the admission records She has a history of end-stage renal disease secondary to hypertension. She also has a history of severe renal osteodystrophy and calciphylaxis. Over the last several months, she has gone up to two weeks without dialysis citing a number of personal issues. Despite numerous offers of assistance from director social and our dialysis unit, she continues to miss dialysis. She was most recently in the hospital approximately two weeks ago having missed dialysis for two weeks prior to this. We aggressively dialyzed her and she subsequently came to one appointment at the dialysis unit and then has not shown up since then. This afternoon in the emergency department her potassium was 6.9, bicarbonate was 17 and creatinine was 16.26. Review of Systems: Negative for fevers, chills, sweats, coughing, abdominal pain, chest pain, shortness breath, seizures, rash, joint pain, dysuria, bleeding, new allergies, headaches. Allergies Coded Allergies: codeine (Verified Allergy, Severe, RASH, HEADACHE, 06/29/16) hydrocodone (Verified Allergy, Severe, RASH, HEADACHE, 06/29/16) latex (Verified Allergy, Severe, RASH, HIVES, DIFFICULTY BREATHING, 06/29/16 ) diclofenac sodium (Verified Allergy, Mild, diarrhea, vomiting, 06/29/16) Pork (Verified Allergy, Unknown, rash, headache, n/v, 06/29/16) colchicine (Verified Adverse Reaction, Severe, Diarrhea, N/V, 06/29/16) Uncoded Allergies: EGGS (Allergy, Mild, rash, headache, n/v, 2/18/14) Home Medications allopurinol, alprazolam, Senna , clonazepam, Fosrenol, methadone, metolazone, and Renvela. PMH End-stage renal disease on hemodialysis Gout Chronic pain Opiate dependency Surgical History PAST SURGICAL HISTORY: Is significant for: 1. A left knee replacement. 2. hip replacement, both the left and right. 3. AV fistula left arm and right forearm 4. Carpal tunnel release bilateral 5. Tubal ligation. 6. Arthroscopy of the knee. 7. Angioplasty of stenosed grafts in the past Family History Mother ovarian cancer and diabetes type II Social History Hx Alcohol Use: No Hx Substance Use: No Hx Tobacco Use: No Smoking Status: Never Smoker Additional Information She says she has a boyfriend who lives with her, now moving into the [employer] with her. She says she has 2 sons and 2 daughters who live spread out between [facility] and [place]. She had been living with a friend. She says her friend will drive her to the motel. She is to work in electronics assembly She has been on dialysis for 6-1/2 years Her primary care provider is Dr. Lagos Her ur coordinator is Dr. Beck Exam Vital Signs Vital Sign - Last Date Time Temp Pulse Resp B/P Pulse Ox O2 Delivery O2 Flow Rate FiO2 07/30/16 04:45 36.4 91 18 132/82 96 Room Air Intake and Output 07/29/16 07/29/16 07/30/16 Cumulative From/Thru 15:00 23:00 07:00 07/27/16 12:42 - 07/30/16 05:23 Intake Total 1320 ml 800 ml 3720 ml Output Total 2000 ml 0 ml 0 ml 9150 ml Balance -2000 ml 1320 ml 800 ml -5430 ml Intake Oral 1320 ml 800 ml 3720 ml Output Urine Total 0 ml 0 ml 150 ml Ultrafiltrate 2000 ml 9000 ml # Voids 2 # Bowel Movements 1 0 2 Exam Alert and oriented, in no apparent distress Pupils are equally round and reactive to light and accommodation, extraocular muscles are intact, sclerae are pink and nonicteric. No lymph nodes are felt head, neck or supraclavicular area JVD is less than 6 cm, no carotid bruits are heard. Heart is regular rate and rhythm without murmur Lungs are clear to auscultation bilaterally Abdomen is obese, bowel sounds positive, nontender, no organomegaly There is no ankle edema Loud functional bruit left upper arm No tremor, cranial nerves II through XII tested intact, motor 5 out of 5 throughout No skin rash or jaundice. Lab and Diagnostics Result Diagram: 07/27/16 1413 07/27/16 1413 X-Rays, CTs and MRIs X-RAY LEFT HIP COMPLETE, MINIMUM TWO VIEWS ([id number]) INDICATIONS: left hip pain TECHNIQUE: 2 views of the hip were acquired. COMPARISON: None. FINDINGS: Bones: No fractures or dislocations. No suspicious bony lesions. The visualized pelvic ring appears intact. Soft tissues: No suspicious soft tissue calcifications or masses. IMPRESSION: No fracture. No osseous lesion. If symptoms and/or clinical suspicion for pathology persists, further assessment with repeat radiographs or advanced imaging (e.g. CT, MRI or bone scan) may be helpful for further assessment. Dictated by: Love Sarmiento MD, PhD Assessment & Plan Impression #1 end-stage renal disease dialysis dependent -Resume outpatient dialysis regimen per nephrology -She will need to arrange for transportation from [facility] to the dialysis center. -She is homeless and says that living in a motel, at $50 a night, will help her obtain friendship house or other more permanent housing. #2 chronic noncompliance -Much of this seems to be distraction by transportation problems and social situations. #3 symptomatic uremia -This has cleared as expected with dialysis. #4 chronic pain with opiate dependence -Pain medicines were held and will be resumed at small quantity prescriptions on discharge. -She will see on the . #5 Anemia of ESRD -Follow up H/H and treatment per Dr. Lagos and Dr. Beck. -Hgb 8.2 on admission and not repeated since -Will be going home as soon as this discharge consult/H and P can be done so will need to defer follow up to her PCP team. She was admitted and cared for by nephrology with daily hemodialysis for 3 days , stabilizing her uremia and enabling her to return to her outpatient dialysis regimen with Dr. Beck. Yris Judge MD Jul 30, 2016 18:29
== END 2016-07-30 14:54 | disposition home or self-care (01) | DRG 683 ==
LOC: SED 12:36 → EDBD 12:36 → OSC 15:23
PROVIDERS: ADMIT Internal Medicine Nephrology; ATTEND Internal Medicine Nephrology
PROC: 5A1D60Z (ICD-10-PCS; principal; 2016-07-27)
DX: N18.6 End stage renal disease (principal); I13.11 Hypertensive heart and chronic kidney disease without heart failure, with stage 5 chronic kidney disease, or end stage renal disease; F11.20 Opioid dependence, uncomplicated; Z68.41 Body mass index [BMI] 40.0-44.9, adult; Z99.2 Dependence on renal dialysis; M25.552 Pain in left hip; G89.29 Other chronic pain; Z91.15 Patient's noncompliance with renal dialysis; E66.09 Other obesity due to excess calories; E87.5 Hyperkalemia; D63.1 Anemia in chronic kidney disease

== ENCOUNTER 2016-08-19 13:10 | Inpatient (IN) | payer MEDICAID, MEDICARE ==
[2016-08-19] VITALS (7 sets, daily range): BP systolic 114–161; BP diastolic 74–95; PULSE 92–110; RESP 20–26; O2SAT 91–100
[~2016-08-19] VITALS: Ht 160 cm; Wt 110.8 kg
[~2016-08-19 13:10] MED LIST changes: +ALBU18HF INH; -ALBU8.5H4 IH; +FOLI1TAB34 PO; -LANT500T PO; +METO10TA7 PO; -METO2.5T12 PO; +MIDO10TA PO; +[UNRECOGNIZED DRUG - CODE] PO
--- NOTE | 2016-08-19 13:23 | ED.REPORT ---
HPI-General Illness Date of Service Aug 19, 2016 ED Provider: Sj Goldman MD The patient is a 50 year old female with history of end-stage renal disease on hemo-dialysis MWF, chronic anemia, hypertension, obstructive sleep apnea on CPAP , anxiety, asthma, who was brought to the emergency department by EMS from [facility]. The patient resides in [place] where she usually gets dialysis. Somehow she was stuck in [place] and has been in a hotel for about 10 days during which time she did not receive dialysis. She presented to [facility] complaining of lower extremity edema and shortness of breath, as well as orthopnea, chest pain, productive cough, diarrhea, and generalized weakness. She denies fever. Lab studies obtained at [facility] included: CMP that demonstrated BUN 109 , creatinine 17.6, K 7.8, glucose 85, Mg 2.2, unremarkable transaminases. Troponin .033, INR 1, d-dimer 2045, hct 25, no leukocytosis. Prior to arrival it appears that she was treated with 10 units insulin, 1 amp d50, and albuterol nebulizer. She was given calcium gluconate and started on a calcium gluconate drip. She was additionally treated with Kayexalate. Nursing Notes Stated Complaint: SOB/WEAKNESS Nursing Notes Reviewed: Yes Allergies: Coded Allergies: codeine (Verified Allergy, Severe, RASH, HEADACHE, 06/29/16) hydrocodone (Verified Allergy, Severe, RASH, HEADACHE, 06/29/16) latex (Verified Allergy, Severe, RASH, HIVES, DIFFICULTY BREATHING, 06/29/16 ) diclofenac sodium (Verified Allergy, Mild, diarrhea, vomiting, 06/29/16) Pork (Verified Allergy, Unknown, rash, headache, n/v, 06/29/16) colchicine (Verified Adverse Reaction, Severe, Diarrhea, N/V, 06/29/16) Uncoded Allergies: EGGS (Allergy, Mild, rash, headache, n/v, 07/16/13) Scheduled Allopurinol (Allopurinol) 100 Mg Tablet 100 MG PO BID Alprazolam (Alprazolam) 1 Mg Tablet 3 MG PO MWF prior to dialysis Cinacalcet HCl (Sensipar) 60 Mg Tablet 60 MG PO BID Clonazepam (Klonopin) 1 Mg Tablet 1 MG PO HS Folic Acid/Vitamin B Comp W-C (Dialyvite Tablet) 1 Each Tablet 1 EACH PO DAILY Lanthanum Carb Chew (Fosrenol Chew) 750 Mg Chew 750 MG PO TIDWM Takes with Renvela Methadone (Methadone) 10 Mg Tab 20 MG PO TID Metolazone (Metolazone) 10 Mg Tablet 10 MG PO BIDWM Midodrine (Midodrine) 10 Mg Tablet 10 MG PO MWF Sevelamer Carbonate (Renvela) 800 Mg Tablet 1,600 MG PO TIDWM hydrOXYzine Hcl (HydrOXYzine Hcl) 25 Mg Tablet 25 MG PO BID Scheduled PRN Albuterol Sulfate (Ventolin HFA Inhaler) 200 Puff/18 Gm Inhaler 1-2 PUFF INH Q4 PRN PRN For Wheezing Omeprazole (Omeprazole) 20 Mg Capsule.dr 20 MG PO BID PRN PRN For Dyspepsia or Heartburn General Time Seen by MD: 13:15 Chief Complaint Weakness, Other (shortness of breath) Hx Obtained From: Patient, EMS Arrived By: Ambulance Sudden in Onset?: No Onset Occurred: More than a week ago... Symptom Duration: Since onset Location: : Chest Quality: Painful Severity: Current: Moderate Severity: Maximum: Moderate Recent Healthcare: No recent hospitalization, Recent doctor visit Similar Sx Previous: No Past Medical History Past Medical History 1. End-stage renal disease, on hemodialysis. 2. Chronic anemia likely secondary to underlying end-stage renal disease. 3. Hypertension. 4. Gout. 5. Obstructive sleep apnea (on CPAP). 6. Anxiety. 7. Renal osteodystrophy. 8. Asthma. Past Surgical History Left knee replacement Right hip replacement Left AV fistula Right AV fistula Bilateral carpel tunnel surgery Tubal ligation Left knee arthroscopy Nonfunctional arteriovenous fistula, anastomosis lesion, status post successful angioplasty Family History Noncontributory Smoking History Never Smoker Social History Drug Use: Denies drug use Other Social History: Local resident Ambulatory Status Independent Review of Systems +orthopnea Full Review of Systems Constitutional: Reports: Weakness - generalized, Denies: Fever Respiratory: Reports: Prod cough, clear, Shortness of breath Cardiovascular: Reports: Chest pain GI: Reports: Diarrhea Musculoskeletal: Reports: Extremity swelling Complete sys rev & neg: except as marked. Physical Exam Vital Signs Vital Signs Date Time Temp Pulse Resp B/P Pulse Ox O2 Delivery O2 Flow Rate FiO2 08/19/16 14:19 101 22 142/84 98 Nasal Cannula 08/19/16 13:23 36.6 93 26 142/84 100 Room Air Initial VS: Reviewed Head / Eyes: Atraumatic, Normocephalic, PERRL ENT: Mucous membranes moist, Conjunctiva normal, No scleral icterus Neck: Supple, Non-tender, Full range of motion Abdomen / GI: Soft, Non-tender, No guarding, No rebound, No distention Extremities: Neuro intact Skin: Warm, Dry, No cyanosis Neurologic: Alert, Oriented, Nonfocal Psychiatric: Mood/affect normal, Behavior normal, Normal thought content Alertness: Positive: Somnolent Appearance / Presentation: Positive: Ill appearing/not toxic, Pale Answering questions appropriately, protecting airway. Resp Distress / Stridor: Positive: Resp distress moderate She is on a continuous nebulizer treatment and 6 L oxygen by nasal cannula. She is tachypneic. Cardiovascular: Heart rate NL, Regular rhythm, Heart sounds NL, No murmurs, No rubs, Cap refill not delayed, Peripheral circulation NL, Pulses = bilaterally Lower Extremity / Pelvis / MS: Neurologic intact Palpable varicosities in lower extremities. Palpable distal pulses. No unilateral calf swelling. Interpretation & Diagnostics Lab Results Interpretation Result Diagram: 08/19/16 1350 08/19/16 1350 Test 08/19/16 13:50 08/19/16 14:34 White Blood Count 8.2th/mm3 (3.8-10.1) Red Blood Count 2.83mil/mm3 (3.90-5.20) Hemoglobin 8.0g/dL (12.0-15.6) Hematocrit 24.6% (35.0-46.0) Mean Corpuscular Volume 86.9fL (81-100) Mean Corpuscular Hemoglobin 28.3pg (27.0-35.0) Mean Corpuscular Hemoglobin Concent 32.5% (32.0-37.0) Red Cell Distribution Width 15.4% (12.3-15.4) Platelet Count 355bil/L (150-400) Neutrophils (%) (Auto) 63.0% (40-74) Lymphocytes (%) (Auto) 24.6% (14-46) Monocytes (%) (Auto) 7.5% (4-12) Eosinophils (%) (Auto) 3.4% (0-5) Basophils (%) (Auto) 0.5% (0-3) Sodium Level 137mEq/L (134-144) Potassium Level 6.9mEq/L (3.5-5.2) Chloride Level 88mEq/L (97-108) Carbon Dioxide Level 13mmol/L (18-29) Blood Urea Nitrogen 113mg/dL (6-24) Creatinine 18.43mg/dL (0.57-1.00) Estimat Glomerular Filtration Rate 3mL/min (>59) Glucose Level 65mg/dL (60-99) Calcium Level 10.1mg/dL (8.5-10.1) Magnesium Level 2.5mg/dL (1.6-2.6) Total Bilirubin 0.4mg/dL (0.0-1.2) Aspartate Amino Transf (AST/SGOT) 14U/L (0-50) Alanine Aminotransferase (ALT/SGPT) 24U/L (0-32) Alkaline Phosphatase 341U/L (25-150) Troponin T 0.032ug/L (0.0-0.011) Pro-B-Type Natriuretic Peptide 20795sx/mL (0-249) Total Protein 6.7g/dL (6.4-8.4) Albumin 3.7g/dL (3.4-5.0) Urine Color Straw (YELLOW) Urine Appearance Hazy (CLEAR,HAZY) Urine pH 8.0 (5.0-8.0) Urine Specific Lincoln 1.015 (1.003-1.035) Urine Protein 30mg/dL (NEG,TRACE) Urine Glucose (UA) 100mg/dL (NEGATIVE) Urine Ketones Tracemg/dL (NEGATIVE) Urine Occult Blood Small (NEGATIVE) Urine Nitrite Negative (NEGATIVE) Urine Bilirubin Negative (NEGATIVE) Urine Urobilinogen Normalmg/dL (NORMAL) Urine Leukocyte Esterase Negative (NEGATIVE) Urine RBC 3-10/hpf (0-2) Urine WBC 0-5/hpf (0-5) Urine Epithelial Cells Occasional/hpf (NONE-MOD) Urine Crystals None seen (NONE SEEN) Urine Bacteria Moderate/hpf (NONE-FEW) Urine Hyaline Casts None/lpf (NONE) Urine Granular Casts None seen (NONE SEEN) Urine Waxy Casts None seen (NONE SEEN) Urine Red Blood Cell Casts None seen (NONE SEEN) Urine White Blood Cell Casts None seen (NONE SEEN) Urine Mucus None seen (None Seen) Urine Trichomonas None seen (NONE SEEN) Urine Yeast None (NONE SEEN) Urinalysis Comment None Urine Culture Reflexed Indicated ECG Interpretation ECG Interpretation: Sinus tachycardia with a rate of 100 bpm Normal axis Normal intervals ST segment depression about the anterolateral leads of approx 1 mm with T wave inversion in leads V1 and V2 T waves slightly peaked in appearance When compared to prior EKG taken on 07/17/[address] depression and T wave inversion in V2 are new Time: 14:16 Interpreted by: ED physician X-Ray Chest Interpretation Chest Xray Interpretation: IMPRESSION: Limited expiratory chest demonstrating no definite acute cardiopulmonary process. Dictated by: Denzel Kauffman RRCharo Interpreted: Love Sarmiento MD on 08/19/2016 at 15:04 Interpretation / Wet Read by: Interpret - Radiologist Re-Eval/Medical Decision Med Decision/Clinical Course The patient is a 50 year old female with history of end-stage renal disease on hemo-dialysis MWF, chronic anemia, hypertension, obstructive sleep apnea on CPAP , anxiety, asthma, who was brought to the emergency department by EMS from [facility]. The patient resides in [place] where she usually gets dialysis. Somehow she was stuck in [place] and has been in a hotel for about 10 days during which time she did not receive dialysis. She presented to [facility] complaining of lower extremity edema and shortness of breath, as well as orthopnea, chest pain, productive cough, diarrhea, and generalized weakness. She denies fever. Lab studies obtained at [facility] included: CMP that demonstrated BUN 109 , creatinine 17.6, K 7.8, glucose 85, Mg 2.2, unremarkable transaminases. Troponin .033, INR 1, d-dimer 2045, hct 25, no leukocytosis. Prior to arrival it appears that she was treated with 10 units insulin, 1 amp d50, and albuterol nebulizer. She was given calcium gluconate and started on a calcium gluconate drip. She was additionally treated with Kayexalate. Upon arrival in the emergency department the patient is borderline tachycardic, tachypneic with a heart rate in the 30s and requiring 6 L of supplemental oxygen via Venturi mask to maintain sats in the high 90s. She is alert/ oriented and answering questions appropriately. Family should have her lungs reveals decreased movement at the bases with significant Rales. She was continued on continuous infusion of calcium gluconate as well as albuterol. I immediately contacted nephrology and they agreed to emergently dialyze her in the intensive care unit. I further discussed the patient with the admitting physician who is aware of her. EKG was obtained and interpreted by myself as documented above. Laboratory studies obtained in the emergency Department were notable as below: CBC: hct 24.6, CBC otherwise unremarkable CMP: K6.9, BUN 113, creatinine 18.43, chloride 88, bicarb 18, alk phos 314, troponin 0.032, BNP 63536 AB.299/36/66.2/17.1/-8.1 UA equivocal for UTI. CXR: Limited expiratory chest demonstrating no definite acute cardiopulmonary process. The patient continued aggressive treatment of her hyperkalemia here in the emergency department. She was transferred to the intensive care unit and consultation with nephrology plan for emergent hemodialysis upon arrival to the ICU. Transferred in stable though critical condition. In regards the patient's markedly elevated d-dimer plan for V/Q scanning. Discussed heparinization with admitting physician however at this time the overall clinical presentation seems most consistent with fluid overload and severe hyperkalemia. In this setting patient's elevated d-dimer is difficult to interpret concurrent pulmonary embolism on top of her presentation remains a possibility though seems clinically less likely. Source of Hx: Old records, EMS Time of Eval: 13:40 Re-Evaluation/Progress Note: Discussed plan for admission. All questions were addressed. Consultation #1: Referral / Consult Name: Sanket Mensah MD Consulted With: Nephrology Call Returned at: 13:35 Construction Sales Manager: Will see patient, Agrees with eval, Agrees with plan Note: They will emergently dialyze in the CCU. Consultation #2: Referral / Consult Name: Irene Fagan MD Consulted With: Hospitalist Call Returned at: 13:53 Construction Sales Manager: Will see patient, Agrees with eval, Agrees with plan, Accepts admit Counseled Regarding: Diagnosis, Lab results, Need for admission Discharge & Departure Primary Impression: Hyperkalemia Additional Impressions: Renal failure Pulmonary edema Chronicity: acute Qualified Code: J81.0 - Acute pulmonary edema Volume overload Hypervolemia type: unspecified Qualified Code: E87.70 - Fluid overload, unspecified Acute respiratory failure Respiratory failure complication: unspecified whether with hypoxia or hypercapnia Qualified Code: J96.00 - Acute respiratory failure, unspecified whether with hypoxia or hypercapnia Metabolic acidosis Noncompliance of patient with renal dialysis Elevated troponin Elevated d-dimer Disposition: ADMITTED TO HOSPITAL Discharge Condition All VS Reviewed: Yes Condition: Stable Referrals: Maximiliano Zhao DO (PCP) Crit Care Except Billable Proc Time Spent: 105-134 minutes Services Performed: Patient management by me, Time spent at bedside, Reviewing test results, Reviewing imaging, Discussing patient care, Documentation in record, Time with fam/surrogate Scribe Attestation Portions of this note were transcribed by Saima Petersen. I, Dr. Goldman personally performed the history, physical exam and medical decision-making; I reviewed and confirmed the accuracy of the information in the transcribed note. Signed by: Marcos Ferrer, 08/19/2016 at 1530. copies to: Maximiliano Zhao Beck O MD Aug 19, 2016 13:23 Saima Petersen Aug 19, 2016 13:30
[2016-08-19 13:58] LABS: BASOPHILS % (AUTO) 0.5 % (0-3); EOSINOPHILS % (AUTO) 3.4 % (0-5); MONOCYTES % (AUTO) 7.5 % (4-12); Mean Corpuscular Hemoglobin 28.3 pg (27.0-35.0); Mean Corpuscular Volume 86.9 fL (81-100); Platelet Count 355 bil/L (150-400)
[2016-08-19 14:32] LABS: TROPONIN T 0.032 ug/L (0.0-0.011)
[2016-08-19] MEDS ORDERED: Alum-Mag Hydrox-Simeth 30 mL Suspension PO PRN ×2 (14:45→17:05)
[2016-08-19] MEDS ORDERED: Ondansetron 2 mg/mL 2 mL Inj IVPUSH PRN ×2 (14:45→17:05)
[2016-08-19 14:49] LABS: APPEARANCE,URINE HAZY (CLEAR,HAZY); COLOR,URINE STRAW (YELLOW)
[2016-08-19 14:50] LABS: OCCULT BLOOD,URINE SMALL (NEGATIVE); UROBILINOGEN,URINE NORMAL (NORMAL)
--- NOTE | 2016-08-19 15:00 | ABG ---
DateTimeAnalyzed 14:57:00 -_ pH ____7.299 - 7.350 7.450 pCO2 ___36.0__ -mmHg 35.0 45.0 pO2 ___66.2__ -mmHg 69.0 116 HCO3- ___17.1__ -mmol/L 22.0 26.0 ABE ___-8.1__ -mmol/L -2.0 2.0 tHb ____8.0__ -g/dL O2Hb ___88.1__ -% COHb ____1.6__ -% MetHb ____1.2__ -% sO2 ___90.6__ -% FIO2 ___40.0__ -% Drawn By as - Date/Time Notified____ 15:00:00 -_ Spontaneous_RR ___15.0__ -b/min Liter_Flow ____5.0__ -L/min Oxygen Device 1 __CANNULA - Notified By ams - Notified Whom dr longstreet - B 752 -mmHg tO2 ___10.1__ -Vol% Good test _Positive -
--- NOTE | 2016-08-19 15:04 | DRSVH ---
PROCEDURE: X-RAY CHEST ONE VIEW, PORTABLE ([id number]) INDICATIONS: dyspnea TECHNIQUE: One view of the chest was acquired. COMPARISON: None. FINDINGS: Surgical changes and devices: None. Lungs and pleura: Expiratory chest demonstrating no definite acute cardiopulmonary process. Mediastinum: Mediastinal contours appear normal. Heart size is prominent. Bones and chest wall: No suspicious bony lesions. Overlying soft tissues appear unremarkable. IMPRESSION: Limited expiratory chest demonstrating no definite acute cardiopulmonary process. Dictated by: Denzel Kauffman [facility] Interpreted: Love Sarmiento MD on 08/19/2016 at 15:04 Transcribed by: LD on 08/19/2016 at 15:04 Approved by: Love Sarmiento MD, PhD on 08/19/2016 at 17:04
[2016-08-19] MEDS: Vitamin B Complex/Vit C Tablet PO SCH (16:45)
[2016-08-19] MEDS ORDERED: Polyethylene Glycol (PEG) 17 Gm Powder PO PRN (17:05)
[2016-08-19 17:09] LABS: Phosphorus 12.3 mg/dL (2.5-4.9)
--- NOTE | 2016-08-19 17:12 | PCM.HPMED ---
Subjective Date of Service Aug 19, 2016 Primary Provider: Admitting Physician: Irene Fagan MD Primary Care Physician: Maximiliano Zhao DO Attending Physician: Irene Fagan MD Admit Status: From the Emergency Department, Full Admit, Admit to [facility] Team, [facility] Telemetry Chief Complaint: Pulmonary edema, missed at least 10 days of hemodialysis History of Present Illness: Is a 50-year-old female with history of end-stage renal disease who is on hemodialysis Monday. She apparently has not gone for about 10 days as did not have access unfortunately she also did this similar event occurred earlier this month. She presented to [facility] and was evaluated in the emergency room there. BUN was 109, creatinine 17.6 with a potassium of 7.8 and magnesium was 2.2. Bone and there was noted to be 0.033. Medical it was 25 according to the ER doctor at [facility] she did not have any EKG changes. At [facility] she was treated with 10 units of IV insulin 1 amp of D50 and albuterol nebulization she was also given calcium gluconate and calcium gluconate drip along with treatment being treated with Kayexalate. She was transferred to [facility] but instead being directly admitted the a ambulance took her into the emergency room and further evaluation was done here at [facility]. Review of Systems: Denies any fevers or chills, denies any chest pain. All other review of systems were negative but difficult to obtain from this patient who was significantly short of breath and appeared to possibly have CO2 retention. Allergies Coded Allergies: codeine (Verified Allergy, Severe, RASH, HEADACHE, 06/29/16) hydrocodone (Verified Allergy, Severe, RASH, HEADACHE, 06/29/16) latex (Verified Allergy, Severe, RASH, HIVES, DIFFICULTY BREATHING, 06/29/16 ) diclofenac sodium (Verified Allergy, Mild, diarrhea, vomiting, 06/29/16) Pork (Verified Allergy, Unknown, rash, headache, n/v, 06/29/16) colchicine (Verified Adverse Reaction, Severe, Diarrhea, N/V, 06/29/16) Uncoded Allergies: EGGS (Allergy, Mild, rash, headache, n/v, 07/16/13) Home Medications Scheduled Allopurinol (Allopurinol) 100 Mg Tablet 100 MG PO BID Alprazolam (Alprazolam) 1 Mg Tablet 3 MG PO MWF prior to dialysis Cinacalcet HCl (Sensipar) 60 Mg Tablet 60 MG PO BID Clonazepam (Klonopin) 1 Mg Tablet 1 MG PO HS Folic Acid/Vitamin B Comp W-C (Dialyvite Tablet) 1 Each Tablet 1 EACH PO DAILY Lanthanum Carb Chew (Fosrenol Chew) 750 Mg Chew 750 MG PO TIDWM Takes with Renvela Methadone (Methadone) 10 Mg Tab 20 MG PO TID Metolazone (Metolazone) 10 Mg Tablet 10 MG PO BIDWM Midodrine (Midodrine) 10 Mg Tablet 10 MG PO MWF Sevelamer Carbonate (Renvela) 800 Mg Tablet 1,600 MG PO TIDWM hydrOXYzine Hcl (HydrOXYzine Hcl) 25 Mg Tablet 25 MG PO BID Scheduled PRN Albuterol Sulfate (Ventolin HFA Inhaler) 200 Puff/18 Gm Inhaler 1-2 PUFF INH Q4 PRN PRN For Wheezing Omeprazole (Omeprazole) 20 Mg Capsule.dr 20 MG PO BID PRN PRN For Dyspepsia or Heartburn PMH Past Medical History 1. End-stage renal disease, on hemodialysis. 2. Chronic anemia likely secondary to underlying end-stage renal disease. 3. Hypertension. 4. Gout. 5. Obstructive sleep apnea (on CPAP). 6. Anxiety. 7. Renal osteodystrophy. 8. Asthma. Surgical History Past Surgical History Left knee replacement Right hip replacement Left AV fistula Right AV fistula Bilateral carpel tunnel surgery Tubal ligation Left knee arthroscopy Nonfunctional arteriovenous fistula, anastomosis lesion, status post successful angioplasty Family History No history of renal disease, mother with a history of ovarian cancer and type II diabetes Social History Hx Alcohol Use: No Hx Substance Use: No Hx Tobacco Use: No Smoking Status: Never Smoker Living Arrangement: with Friends/Roommate Other (in hotel) Exam Vital Signs Vital Sign - Last Date Time Temp Pulse Resp B/P Pulse Ox O2 Delivery O2 Flow Rate FiO2 08/19/16 15:30 101 24 139/95 97 Nasal Cannula 3 08/19/16 15:30 37.0 Exam Constitutional: Morbidly obese woman who is quite drowsy and Lovenox the mask on and having frothy secretions from around Head: Normocephalic atraumatic Neck: No adenopathy Chest reveals diffuse rhonchi Cor: Regular rate and rhythm S1-S2 Abdomen: Soft nontender bowel sounds present Extremities: 2+ bilateral pedal edema Skin: No rashes noted Psych: Quite somnolent unable to assess Neuro: She is drowsy she does appear to be oriented 3 when aroused and answered questions. Moves all extremities equally Lab and Diagnostics Labs Laboratory Tests 72 Hours Test 08/19/16 13:50 08/19/16 14:34 08/19/16 17:00 White Blood Count 8.2th/mm3 (3.8-10.1) Red Blood Count 2.83mil/mm3 (3.90-5.20) Hemoglobin 8.0g/dL (12.0-15.6) Hematocrit 24.6% (35.0-46.0) Mean Corpuscular Volume 86.9fL (81-100) Mean Corpuscular Hemoglobin 28.3pg (27.0-35.0) Mean Corpuscular Hemoglobin Concent 32.5% (32.0-37.0) Red Cell Distribution Width 15.4% (12.3-15.4) Platelet Count 355bil/L (150-400) Neutrophils (%) (Auto) 63.0% (40-74) Lymphocytes (%) (Auto) 24.6% (14-46) Monocytes (%) (Auto) 7.5% (4-12) Eosinophils (%) (Auto) 3.4% (0-5) Basophils (%) (Auto) 0.5% (0-3) Sodium Level 137mEq/L (134-144) Potassium Level 6.9mEq/L (3.5-5.2) Chloride Level 88mEq/L (97-108) Carbon Dioxide Level 13mmol/L (18-29) Blood Urea Nitrogen 113mg/dL (6-24) Creatinine 18.43mg/dL (0.57-1.00) Estimat Glomerular Filtration Rate 3mL/min (>59) Glucose Level 65mg/dL (60-99) Uric Acid 11.6mg/dL (2.6-7.2) Calcium Level 10.1mg/dL (8.5-10.1) Phosphorus Level 12.3mg/dL (2.5-4.9) Magnesium Level 2.5mg/dL (1.6-2.6) Total Bilirubin 0.4mg/dL (0.0-1.2) Aspartate Amino Transf (AST/SGOT) 14U/L (0-50) Alanine Aminotransferase (ALT/SGPT) 24U/L (0-32) Alkaline Phosphatase 341U/L (25-150) Troponin T 0.032ug/L (0.0-0.011) Pro-B-Type Natriuretic Peptide 86109zn/mL (0-249) Total Protein 6.7g/dL (6.4-8.4) Albumin 3.7g/dL (3.4-5.0) Urine Color Straw (YELLOW) Urine Appearance Hazy (CLEAR,HAZY) Urine pH 8.0 (5.0-8.0) Urine Specific [place] 1.015 (1.003-1.035) Urine Protein 30mg/dL (NEG,TRACE) Urine Glucose (UA) 100mg/dL (NEGATIVE) Urine Ketones Tracemg/dL (NEGATIVE) Urine Occult Blood Small (NEGATIVE) Urine Nitrite Negative (NEGATIVE) Urine Bilirubin Negative (NEGATIVE) Urine Urobilinogen Normalmg/dL (NORMAL) Urine Leukocyte Esterase Negative (NEGATIVE) Urine RBC 3-10/hpf (0-2) Urine WBC 0-5/hpf (0-5) Urine Epithelial Cells Occasional/hpf (NONE-MOD) Urine Crystals None seen (NONE SEEN) Urine Bacteria Moderate/hpf (NONE-FEW) Urine Hyaline Casts None/lpf (NONE) Urine Granular Casts None seen (NONE SEEN) Urine Waxy Casts None seen (NONE SEEN) Urine Red Blood Cell Casts None seen (NONE SEEN) Urine White Blood Cell Casts None seen (NONE SEEN) Urine Mucus None seen (None Seen) Urine Trichomonas None seen (NONE SEEN) Urine Yeast None (NONE SEEN) Urinalysis Comment None Urine Culture Reflexed Indicated Result Diagram: 08/19/16 1350 08/19/16 1350 X-Rays, CTs and MRIs Patient Name: ELIZABETH TERAN MR#: [id number] Location: CCU Ordering Phys: Sj Goldman MD Date of Service: 08/19/16 1329 PROCEDURE: X-RAY CHEST ONE VIEW, PORTABLE ([id number]) INDICATIONS: dyspnea TECHNIQUE: One view of the chest was acquired. COMPARISON: None. FINDINGS: Surgical changes and devices: None. Lungs and pleura: Expiratory chest demonstrating no definite acute cardiopulmonary process. Mediastinum: Mediastinal contours appear normal. Heart size is prominent. Bones and chest wall: No suspicious bony lesions. Overlying soft tissues appear unremarkable. IMPRESSION: Limited expiratory chest demonstrating no definite acute cardiopulmonary process. Dictated by: Denzel Kauffman RRA Interpreted: Love Sarmiento MD on 08/19/2016 at 15:04 Transcribed by: LD on 08/19/2016 at 15:04 Approved by: Love Sarmiento MD, PhD on 08/19/2016 at 17:04 12-lead ECG Sinus at rate of 100 poor R-wave progression across precordium Assessment & Plan # Progressive uremia with hyperkalemia, acute, present on admission Proceed with hemodialysis as below Recheck labs in a.m. Check serial troponins every 6 hours 3 # Acute respiratory failure, present on admission Secondary to fluid overload, pulmonary edema related to missed dialysis treatments Patient did have ABG in the emergency room which did not reveal any concerning or significant CO2 retention or metabolic acidosis. ABG as listed below: [facility] ELIZABETH TERAN 1965 Female DateTimeAnalyzed 14:57:00 -_ pH ____7.299 - 7.350 7.450 pCO2 ___36.0__ -mmHg 35.0 45.0 pO2 ___66.2__ -mmHg 69.0 116 HCO3- ___17.1__ -mmol/L 22.0 26.0 ABE ___-8.1__ -mmol/L -2.0 2.0 tHb ____8.0__ -g/dL O2Hb ___88.1__ -% COHb ____1.6__ -% MetHb ____1.2__ -% sO2 ___90.6__ -% FIO2 ___40.0__ -% Drawn By as - Date/Time Notified____ 15:00:00 -_ Spontaneous_RR ___15.0__ -b/min Liter_Flow ____5.0__ -L/min Oxygen Device 1 __CANNULA - Notified By ams - Notified Whom dr longstreet - B 752 -mmHg tO2 ___10.1__ -Vol% Good test _Positive - # Elevated d-dimer, acute, present on admission This was discovered at [facility] during her ER visit today and suspect it is not relevant to current condition given the fact that she had missed hemodialysis and is acute phase reactant We will go ahead and recheck in a.m. # End stage renal disease with having missed multiple hemodialysis treatments, acute, present on admission Patient will have dialysis acutely at bedside in PCC unit We will also get social media marketing analyst consultation and care management consultation to try to avoid these recurrent situations # Obstructive sleep apnea, acute on chronic, present on admission Patient in the emergency room and during dialysis is noted to have obstructive symptomatology of sleep apnea She is maintaining her O2 sats appropriately so will place CPAP with respiratory therapy She does use CPAP at home. # Anemia of chronic kidney disease, chronic, present on admission Further recommendations per nephrology # DVT prophylaxis We will place on SCDs and subcutaneous heparin prophylactic regimen # CODE STATUS Patient is full code GI Prophylaxis: H2 albertina VTE Prophylaxis Indicated: Meets Criteria for Anticoag Therapy VTE Prophylaxis: Sub-Q Heparin (Unfractionated), SCDs VTE Mechanical Devices: Intermittant Pneumatic CD Resuscitation Status: CPR: Attempt Resuscitation Time spent 60 minutes Irene Fagna MD Aug 19, 2016 17:11
--- NOTE | 2016-08-19 17:29 | NUR ---
CPAP/BIPAP Pt with severe ELOY per sleep study in 2011. I placed pt on CPAP with pressure of 12, pt continued to have loud snoring sounds, pressures were increased to 16 and then to 20 with no improvement in snoring/obstruction. I switched her to BI-level and pt immediately began choking and aspirating on her oral secreations. I removed her mask and placed her back on a NC. walking dragline operator at bedside. Primary RN notified.
[2016-08-19 18:03] LABS: TROPONIN T 0.032 ug/L (0.0-0.011)
[2016-08-19 18:08] LABS: Magnesium 2.1 mg/dL (1.6-2.6)
--- NOTE | 2016-08-19 18:17 | CONS ---
[address] [address] CONSULTATION REPORT PATIENT: ELIZABETH TERAN : 1965 MR#: [id number] ADMIT: 08/19/2016 JOB ID: [id number] DATE OF SERVICE: REQUESTING PHYSICIAN: Dr. Fagan. REASON FOR CONSULTATION: Management of end-stage renal disease. CHIEF COMPLAINT: Shortness of breath. PRESENT ILLNESS: This is a 50-year-old, lady with significant past medical history of end-stage renal disease, on hemodialysis every Monday, Monday and Monday, anemia of chronic kidney disease, renal osteodystrophy, gout, sleep apnea, calciphylaxis, who was transferred from [facility] due to severe hyperkalemia. The patient has had a social issue in which she is now homeless. For some reason, patient was staying in the [facility] in [place] without being dialyzed over the past 10 days. She stated that she might have had dialysis last Monday or last Monday; she is not so sure. She came to the [facility] with a complaint of shortness of breath, lower extremity swelling. The initial blood work showed a potassium of 7.8, BUN of 109. The patient received medical management for hyperkalemia. She was then transferred to [facility] for emergency dialysis. She is complaining of having chills but no subjective fever. She is feeling weak. She has poor appetite. She has no diarrhea. She is feeling nauseated and requested to have IV Zofran prior to dialysis. The initial CBC showed WBC of 8.2, hemoglobin of 8.0, sodium of 137, potassium of 6.9, BUN of 113, creatinine of 18.43. BMP of 31,557. PAST MEDICAL HISTORY: 1. End-stage renal disease, on hemodialysis every Monday, Monday, and Monday. 2. Hypertension with hypertensive nephrosclerosis. 3. 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 4. Asthma. 5. Secondary hyperparathyroidism. 6. Calciphylaxis. 7. Obesity. 8. Sleep apnea. PAST SURGICAL HISTORY: 1. Status post AV fistula creation. 2. Status post right hip replacement. 3. Total knee replacement on the left knee. SOCIAL HISTORY: The patient denies current use of alcohol, tobacco, or illicit drugs. She is homeless. FAMILY HISTORY: Noncontributory. ALLERGIES: 1. EGGS. 2. PORK. 3. LATEX. 4. CODEINE. 5. VOLTAREN. REVIEW OF SYSTEMS: Fourteen-point review of systems was performed. PHYSICAL EXAMINATION: Vitals: Temperature 36.6, pulse 101, respiratory 24, blood pressure 139/95, O2 sat 97% on nasal cannula at 3 L. General appearance: Awake, alert, oriented x3. Mild tachypneic on nasal cannula. HEENT: Mild pallor. Anicteric sclerae. Atraumatic. Moist mucous membranes. PERRLA: Puffy eyelids. No JVD. No lymphadenopathy. No thyroid enlargement. Heart: Regular rhythm. Normal S1, S2. No murmurs, rubs, or gallops. Lungs: Rales at the bases. No wheezing. No rhonchi. Abdomen: Soft, obese, nontender, nondistended. No hepatosplenomegaly. Extremity: Trace edema on the lower extremity. Left AV fistula with good thrill. LABORATORY: Sodium 137, potassium 6.9, chloride 88, bicarb 13, BUN 113, creatinine 18, hemoglobin 8.0. ASSESSMENT: 1. End-stage renal disease with uremia and fluid overload. 2. Severe metabolic acidosis. 3. Severe hyperkalemia. 4. Obesity. 5. Sleep apnea. 6. Anemia in chronic kidney disease. 7. Renal osteodystrophy. 8. Calciphylaxis. Patient received dialysis today for 4 hours with ultrafiltration, 3-4 L as tolerated. Will give patient Aranesp injection. We will check phosphorus level. Will start patient on Renvela 1600 mg three times a day with meals. Consult psych social worker for placement. Thank you for your consultation. We will monitor along with you. MTDD
--- NOTE | 2016-08-19 18:36 | NUR ---
Admit/LOC/Respiratory Pt arrived on floor from ER at 1530 in stable condition. A&O x3, RASS score 0, FELDT score 0. Used slider board to move from gurney to CCU bed. Pt had BM, and some small skin tears around anus (see pt assessment intervention). BP somewhat hypertensive, TELE ST with elevated T wave. Pt at 98% on 2L NC. Dialysis started, pt tolerating well. Pt falls asleep suddenly and snores loudly with multiple times of apnea a minute. Not easily woken during this time, use sternal rub, pt wakes up momentarily then falls right back asleep. Boyfriend at bedside confirms that this is her normal sleeping pattern and how she is at night. Pt has intermittent cough with some white secretions that she mostly swallows. Oral suction set up at bedside for PRN use. CPAP attempted by RT, but pt started coughing once mask was on and had to be suctioned. (See RT note). Frequent rounding continues. Pt able to turn semi independently in bed.
--- NOTE | 2016-08-19 20:52 | NUR ---
Dialysis note: 4 hr tx with Net UF of 4.0 left UA fistula accessed with 15 g x2 sharps. Pt usually uses buttonholes but consented to have sharps for this tx. Accessed fistula below and to the side of existing BH sites. Pt slept through most of tx; was difficult to arouse for the first 2 hrs and then was more responsive to voice for the rest of tx. QB 300 per MD orders. Clamps x 8 min and secured with gauze and tape. Pt remains in stable condition. Report given to primary RN Gillian. Please see DTR for complete record of VS.
[2016-08-20] VITALS (9 sets, daily range): BP systolic 121–160; BP diastolic 63–89; PULSE 95–110; RESP 18–26; O2SAT 93–99
[2016-08-20] MEDS: Heparin 5,000 Unit/mL Inj SUBQ SCH ×3 (00:34→16:57)
--- NOTE | 2016-08-20 00:58 | NUR ---
Pt's admit status changed to IMCU with tele. Report given to Yaritza Swenson rn to assume care.
--- NOTE | 2016-08-20 05:20 | NUR ---
Shift update Care assumed at 0030. Pt sleeping soundly, bedside report given and safety checks made. Pt desating into 70's while asleep and quickly back into 90's. RN into room, pt NC is off. Pt difficult to aroused, but placed NC back on, repositioned HOB and reminded pt to keep NC on for oxygen needs. Pt mumbled response and is immediately back to sleep. VSS.
[2016-08-20 05:25] LABS: BASOPHILS % (AUTO) 0.2 % (0-3); MONOCYTES % (AUTO) 7.5 % (4-12); Mean Corpuscular Hemoglobin 28.1 pg (27.0-35.0); Mean Corpuscular Volume 87.5 fL (81-100); NEUTROPHILS % (AUTO) 75.9 % (40-74); Platelet Count 326 bil/L (150-400)
[2016-08-20 05:44] LABS: TROPONIN T 0.034 ug/L (0.0-0.011)
[2016-08-20] MEDS ORDERED: Darbepoetin Alfa 100 mCg/0.5 mL Inj SUBQ ONE (08:00)
[2016-08-20] MEDS: Vitamin B Complex/Vit C Tablet PO SCH (09:03)
--- NOTE | 2016-08-20 10:05 | NUR ---
[facility] Signed
--- NOTE | 2016-08-20 10:22 | NUR ---
Social Work: Initial Assessment D: Per EMR review, pt is a 50 year old female admitted for hyperemia/pulmonary edema. Pt is Medicare with DSHS supplement (per pt); Pt has no LTC insurance or VA benefits. PCP is Dr. Lagos. NOK is Jaime Mullen, dtr, . Advanced directives information declined from CHEMISTRY TUTOR. readmit score is moderate, 4/8 Pt discussed in am rounds. Pt is a dialysis pt at [facility] and [place] M/W/F. Pt has missed 10 days worth of dialysis thus resulting in hospitalization. CHEMISTRY TUTOR consult requested to determine barriers to getting to dialysis and determine outpatient plan. CHEMISTRY TUTOR met with pt at bedside. Sw role explained and contact information provided. See initial assessment. Pt has been living in a motel with her boyfriend while she awaits housing. Pt reports using a FWW at baseline. Pt states that she could not go to dialysis because she could not find a ride. Pt is open with [facility] however because she was not at her listed home address, they would not come pick her up. Pt states she had no money to pay for a cab. Pt states that she and her boyfriend have purchased bus tickets and are moving to [place], [place]. They intend to leave immediately after discharge from the hospital. CHEMISTRY TUTOR inquired if the pt has arranged for dialysis in [place]. Pt states that her social workers through [facility] (Kathryn Lira and Cindy Rodarte) were assisting her with this however she does not know if this was completed, if she has a chair reserved for dialysis or even the specific [facility] location. She provided verbal consent for CHEMISTRY TUTOR to speak with [facility] to inquire if this had been done. CHEMISTRY TUTOR and pt discussed the risks of leaving the area without confirmation that dialysis has been setup. Pt seemed ambivalent about this and not concerned about ensuring her future dialysis appointments are arranged. Voicemail left for Minesh at [facility] to provide notification of pt's admission and inquire about referral to [facility]. t/c to [facility] Admissions Team ( ); voicemail left requesting return phone call to determine pt's current dialysis status with [facility]. t/c to [facility] Animal Feeder ( ); they are requesting the pt call directly to speak with them to determine dialysis schedule/needs. CHEMISTRY TUTOR provided pt with that information and informed her to call. A: Pt who lives with her s/o in a motel; pt is I with ADLs P: Anticipate pt to discharge home when medically stable; CHEMISTRY TUTOR to continue attempts to verify pt's dialysis services with [facility]. CHEMISTRY TUTOR to continue to follow. RORY Cotton Addendum: 08/20/16 at 1041 by SHERINE BAKER Amended: Links added.
[2016-08-20] MEDS: Acetylcysteine 10% 100 mg/mL 30 mL Inhalation Solution NEB SCH ×3 (11:59→23:15)
--- NOTE | 2016-08-20 12:23 | NUR ---
dialysis note 4 hr HD tx. 3000ml net UF removed. 2 15 g sharp needles placed to ANSHU fistula. Buttonholes could not be identified for cannulation. QB 500. See DTR for complete vitals data. Pt rested comfortably. Sureseals/clamps x10 mins post tx.
--- NOTE | 2016-08-20 12:34 | PCM.PNNEPH ---
Subjective Date of Service Aug 20, 2016 Subjective Patient is seen during dialysis. Her blood pressure was low initially. Current blood pressure is stable. She is complaining of productive cough and chills. Exam Vital Signs Vital Sign - Last Date Time Temp Pulse Resp B/P Pulse Ox O2 Delivery O2 Flow Rate FiO2 08/20/16 10:59 96 08/20/16 09:19 36.6 18 127/66 99 Nasal Cannula 2.00 Intake and Output 08/19/16 08/19/16 08/20/16 Cumulative From/Thru 15:00 23:00 07:00 08/19/16 13:23 - 08/20/16 06:42 Intake Total 25 ml 25 ml Output Total 4100 ml 100 ml 4200 ml Balance -4100 ml -75 ml -4175 ml Intake Oral 25 ml 25 ml Output Urine Total 100 ml 100 ml 200 ml Ultrafiltrate 4000 ml 4000 ml # Bowel Movements 1 1 Exam General appearance: Awake, alert, oriented x3. Mild tachypneic on nasal cannula. HEENT: Mild pallor. Anicteric sclerae. Atraumatic. Moist mucous membranes. PERRLA: Puffy eyelids. No JVD. No lymphadenopathy. No thyroid enlargement. Heart: Regular rhythm. Normal S1, S2. No murmurs, rubs, or gallops. Lungs: Rales at the bases. No wheezing. No rhonchi. Abdomen: Soft, obese, nontender, nondistended. No hepatosplenomegaly. Extremity: Trace edema on the lower extremity. Left AV fistula with good thrill. Lab and Diagnostics Result Diagram: 08/20/1641508/20/16415 X-Rays, CTs and MRIs Patient Name: ELIZABETH TERAN MR#: [id number] Location: CCU Ordering Phys: Sj Goldman MD Date of Service: 08/19/16 1329 PROCEDURE: X-RAY CHEST ONE VIEW, PORTABLE ([id number]) INDICATIONS: dyspnea TECHNIQUE: One view of the chest was acquired. COMPARISON: None. FINDINGS: Surgical changes and devices: None. Lungs and pleura: Expiratory chest demonstrating no definite acute cardiopulmonary process. Mediastinum: Mediastinal contours appear normal. Heart size is prominent. Bones and chest wall: No suspicious bony lesions. Overlying soft tissues appear unremarkable. IMPRESSION: Limited expiratory chest demonstrating no definite acute cardiopulmonary process. Dictated by: Denzel Kauffman RRA Interpreted: Love Sarmiento MD on 08/19/2016 at 15:04 Transcribed by: LD on 08/19/2016 at 15:04 Approved by: Love Sarmiento MD, PhD on 08/19/2016 at 17:04 12-lead ECG Sinus at rate of 100 poor R-wave progression across precordium Plan Impression 1. End-stage renal disease with uremia and fluid overload. 4 hours, UF 3-4 L, 2 potassium bath, 35 bicarbonate bath, blood flow rate 400, dialysate flow rate 600, Left AV fistula,revaclear. 2. Severe metabolic acidosis. 3. Severe hyperkalemia. 4. Productive cough rule out acute bronchitis versus pneumonia. 5. Obesity. 6. Sleep apnea. 7. Anemia in chronic kidney disease. 8. Renal osteodystrophy. 9. Calciphylaxis. 10. Substance abuse, amphetamine tested positive. Plan: Next dialysis 3-1/2 hours tomorrow. We will check sputum culture, respiratory viral PCR panel. Add procalcitonin level. Sanket Mensah MD Aug 20, 2016 12:33
--- NOTE | 2016-08-20 15:29 | DRSVH ---
PROCEDURE: X-RAY CHEST, TWO VIEWS ([id number]) INDICATIONS: pulmonary edema TECHNIQUE: 2 views of the chest were acquired. COMPARISON: [facility], CR, XR CHEST 1VW (PORTABLE), 08/19/2016, 13:39. FINDINGS: Surgical changes and devices: None. Lungs and pleura: No pleural effusions or pneumothorax. There is mild interstitial prominence which may reflect mild interstitial edema. No focal consolidation. Mediastinum: Mediastinal contours are normal. Heart size is normal. Bones and chest wall: No suspicious bony abnormalities. Soft tissues appear unremarkable. IMPRESSION: 1. Mild interstitial prominence may reflect mild interstitial pulmonary edema. Dictated by: Jadon Henning M.D. on 08/20/2016 at 15:27 Approved by: Jadon Henning M.D. on 08/20/2016 at 15:27
[2016-08-20 16:32] LABS: Phosphorus 10.8 mg/dL (2.5-4.9)
--- NOTE | 2016-08-20 17:04 | NUR ---
Ambulation Pt up to the chair SBA. No c/o dizziness or SOB, vitals stable. Encouraged pt to ambulate more often but she declined
--- NOTE | 2016-08-20 17:13 | PCM.PNMED ---
Subjective Date of Service Aug 20, 2016 Subjective 50-year-old woman with ESRD presents with electrolyte abnormalities and fluid overload due to poor compliance with hemodialysis. She reports no dyspnea today. Feels swelling is improved. Feels generally better since admission. No specific complaints. She anticipates moving to [place] the time of discharge. She has been homeless on the streets in [place] feels this much change. Exam Vital Signs Vital Sign - Last Date Time Temp Pulse Resp B/P Pulse Ox O2 Delivery O2 Flow Rate FiO2 08/20/16 16:59 36.8 101 26 135/63 98 Nasal Cannula 2.00 Intake and Output 08/19/16 08/19/16 08/20/16 Cumulative From/Thru 15:00 23:00 07:00 08/19/16 13:23 - 08/20/16 06:42 Intake Total 25 ml 25 ml Output Total 4100 ml 100 ml 4200 ml Balance -4100 ml -75 ml -4175 ml Intake Oral 25 ml 25 ml Output Urine Total 100 ml 100 ml 200 ml Ultrafiltrate 4000 ml 4000 ml # Bowel Movements 1 1 Exam General: Obese woman sitting comfortably in bed, no acute distress HEENT: sclerae anicteric, oral mucosa moist Neck: Focal to assess JVD Chest: clear to auscultation Cardiac: S1S2, no murmur Abdomen: BS normal, non-tender Extremities: Trace pitting edema Neuro: A&O, cranial nerves symmetric, motor strength 5/5, coordination normal IVs and Medications Medications Reviewed: Medications were reviewed in detail Lab and Diagnostics Result Diagram: 08/20/1641508/20/16415 X-Rays, CTs and MRIs PROCEDURE: X-RAY CHEST ONE VIEW, PORTABLE ([id number]) IMPRESSION: Limited expiratory chest demonstrating no definite acute cardiopulmonary process. Dictated by: Denzel Kauffman RRCharo Interpreted: Love Sarmiento MD on 08/19/2016 at 15:04 . . 12-lead ECG Sinus at rate of 100 poor R-wave progression across precordium Assessment & Plan # Progressive uremia with hyperkalemia and hyperphosphatemia, acute, present on admission - Proceed with hemodialysis plans per nephrology - Recheck labs in a.m. # Acute respiratory failure, present on admission. Secondary to fluid overload, pulmonary edema related to missed dialysis treatments - Resolving with dialysis # Elevated d-dimer, acute, present on admission - No evidence of acute thrombosis # End stage renal disease with having missed multiple hemodialysis treatments, acute, present on admission - Continues to require unscheduled inpatient dialysis until electrolyte and fluid status is normalized - Explore plans for outpatient dialysis follow-up, especially if patient elects to move to [place] # Obstructive sleep apnea, acute on chronic, present on admission. Patient in the emergency room and during dialysis is noted to have obstructive symptomatology of sleep apnea - She is maintaining her O2 sats appropriately so will place CPAP with respiratory therapy - She does use CPAP at home. # Anemia of chronic kidney disease, chronic, present on admission - Further recommendations per nephrology # DVT prophylaxis - We will place on SCDs and subcutaneous heparin prophylactic regimen # CODE STATUS Patient is full code Disposition: Anticipate discharge after completion of additional hemodialysis treatments in the next 1-2 days GI Prophylaxis: H2 albertina VTE Prophylaxis: Sub-Q Heparin (Unfractionated), SCDs VTE Mechanical Devices: Intermittant Pneumatic CD Resuscitation Status: CPR: Attempt Resuscitation Time spent 35 minutes Ian Ibrahim MD Aug 20, 2016 17:12 # End stage renal disease with having missed multiple hemodialysis treatments, acute, present on admission Patient will have dialysis acutely at bedside in PCC unit We will also get high school social studies teacher consultation and care management consultation to try to avoid these recurrent situations # Obstructive sleep apnea, acute on chronic, present on admission Patient in the emergency room and during dialysis is noted to have obstructive symptomatology of sleep apnea She is maintaining her O2 sats appropriately so will place CPAP with respiratory therapy She does use CPAP at home. # Anemia of chronic kidney disease, chronic, present on admission Further recommendations per nephrology # DVT prophylaxis We will place on SCDs and subcutaneous heparin prophylactic regimen # CODE STATUS Patient is full code GI Prophylaxis: H2 albertina VTE Prophylaxis: Sub-Q Heparin (Unfractionated), SCDs VTE Mechanical Devices: Intermittant Pneumatic CD Resuscitation Status: CPR: Attempt Resuscitation Ian Ibrahim MD Aug 20, 2016 17:12
[2016-08-21] VITALS (12 sets, daily range): BP systolic 111–142; BP diastolic 53–77; PULSE 86–106; RESP 16–28; O2SAT 92–100
[2016-08-21] MEDS: Heparin 5,000 Unit/mL Inj SUBQ SCH ×3 (01:14→16:30)
[2016-08-21 04:46] LABS: BASOPHILS % (AUTO) 0.5 % (0-3); MONOCYTES % (AUTO) 12.4 % (4-12); Mean Corpuscular Hemoglobin 27.8 pg (27.0-35.0); Mean Corpuscular Volume 89.4 fL (81-100); NEUTROPHILS % (AUTO) 55.7 % (40-74); Platelet Count 345 bil/L (150-400)
[2016-08-21 05:05] LABS: Magnesium 1.9 mg/dL (1.6-2.6)
[2016-08-21] MEDS: Acetylcysteine 10% 100 mg/mL 30 mL Inhalation Solution NEB SCH ×5 (05:15→20:52)
[2016-08-21] MEDS: Vitamin B Complex/Vit C Tablet PO SCH (08:22)
--- NOTE | 2016-08-21 09:29 | NUR ---
Dialysis note HD x 3.5 hrs. 2000ml net UF removed. 2 15 g sharp needles to ANSHU fistula. QB 400 per MD order. See DTR for complete vitals data. Pt rested comfortably thru tx. Sureseals/clamps X10 mins post tx.
--- NOTE | 2016-08-21 12:42 | PCM.PNMED ---
Subjective Date of Service Aug 21, 2016 Subjective 50-year-old woman with ESRD presents with electrolyte abnormalities and fluid overload due to poor compliance with hemodialysis. She reports no dyspnea today. Feels swelling is improved. Feels generally better since admission. No specific complaints. Exam Vital Signs Vital Sign - Last Date Time Temp Pulse Resp B/P Pulse Ox O2 Delivery O2 Flow Rate FiO2 08/21/16 11:50 99 16 98 Nasal Cannula 2.00 08/21/16 08:56 36.8 121/65 Intake and Output 08/20/16 08/20/16 08/21/16 Cumulative From/Thru 14:59 22:59 06:59 08/19/16 13:23 - 08/21/16 05:25 Intake Total 650 ml 200 ml 875 ml Output Total 3000 ml 7200 ml Balance -3000 ml 650 ml 200 ml -6325 ml Intake Oral 650 ml 200 ml 875 ml Output Urine Total 200 ml Ultrafiltrate 3000 ml 7000 ml # Voids 1 1 # Bowel Movements 1 2 Exam General: Obese woman sitting comfortably in bed, no acute distress HEENT: sclerae anicteric, oral mucosa moist Neck: Focal to assess JVD Chest: clear to auscultation Cardiac: S1S2, no murmur Abdomen: BS normal, non-tender Extremities: No pitting edema Neuro: A&O, cranial nerves symmetric, motor and coordination normal IVs and Medications Medications Reviewed: Medications were reviewed in detail Lab and Diagnostics Result Diagram: 08/21/1640608/21/16406 X-Rays, CTs and MRIs PROCEDURE: X-RAY CHEST ONE VIEW, PORTABLE ([id number]) IMPRESSION: Limited expiratory chest demonstrating no definite acute cardiopulmonary process. Dictated by: Denzel Kauffman RRA Interpreted: Love Sarmiento MD on 08/19/2016 at 15:04 . . 12-lead ECG Sinus at rate of 100 poor R-wave progression across precordium Assessment & Plan # Progressive uremia with hyperkalemia and hyperphosphatemia, acute, present on admission - Proceed with hemodialysis plans per nephrology - Recheck labs in a.m. # Acute respiratory failure, present on admission. Secondary to fluid overload, pulmonary edema related to missed dialysis treatments - Resolving with dialysis # Elevated d-dimer, acute, present on admission - No evidence of acute thrombosis # End stage renal disease with having missed multiple hemodialysis treatments, acute, present on admission - Continues to require unscheduled inpatient dialysis until electrolyte and fluid status is normalized - Explore plans for outpatient dialysis follow-up, especially if patient elects to move to [place] # Obstructive sleep apnea, acute on chronic, present on admission. Patient in the emergency room and during dialysis is noted to have obstructive symptomatology of sleep apnea - Continue CPAP. # Anemia of chronic kidney disease, chronic, present on admission - Further recommendations per nephrology # DVT prophylaxis - We will place on SCDs and subcutaneous heparin prophylactic regimen # CODE STATUS Patient is full code Disposition: Anticipate discharge after completion of additional hemodialysis treatments in the next 1 days GI Prophylaxis: H2 albertina VTE Prophylaxis: Sub-Q Heparin (Unfractionated), SCDs VTE Mechanical Devices: Intermittant Pneumatic CD Resuscitation Status: CPR: Attempt Resuscitation Time spent 25 minutes Ian Ibrahim MD Aug 21, 2016 12:42
--- NOTE | 2016-08-21 14:09 | PCM.PNNEPH ---
Subjective Date of Service Aug 21, 2016 Subjective Patient stated that she has anxiety attack. She is crying and requesting for Xanax. She had third hemodialysis this morning without complication. The swelling has gone down. She has no difficulty breathing. She would like to relocate in [place], [place]. Exam Vital Signs Vital Sign - Last Date Time Temp Pulse Resp B/P Pulse Ox O2 Delivery O2 Flow Rate FiO2 08/21/16 12:57 36.8 106 18 115/53 100 Nasal Cannula 2.00 Intake and Output 08/20/16 08/20/16 08/21/16 Cumulative From/Thru 15:00 23:00 07:00 08/19/16 13:23 - 08/21/16 05:25 Intake Total 650 ml 200 ml 875 ml Output Total 3000 ml 7200 ml Balance -3000 ml 650 ml 200 ml -6325 ml Intake Oral 650 ml 200 ml 875 ml Output Urine Total 200 ml Ultrafiltrate 3000 ml 7000 ml # Voids 1 1 # Bowel Movements 1 2 Exam General appearance: Awake, alert, oriented x3. Not in acute distress HEENT: Mild pallor. Anicteric sclerae. Atraumatic. Moist mucous membranes. PERRLA: No JVD. No lymphadenopathy. No thyroid enlargement. Heart: Regular rhythm. Normal S1, S2. No murmurs, rubs, or gallops. Lungs: Clear to auscultation bilaterally today. No wheezing. No rhonchi. Abdomen: Soft, obese, nontender, nondistended. No hepatosplenomegaly. Extremity: No edema on the lower extremity. Left AV fistula with good thrill. Lab and Diagnostics Result Diagram: 08/21/1640608/21/16406 X-Rays, CTs and MRIs PROCEDURE: X-RAY CHEST ONE VIEW, PORTABLE ([id number]) IMPRESSION: Limited expiratory chest demonstrating no definite acute cardiopulmonary process. Dictated by: Denzel Kauffman RRCharo Interpreted: Love Sarmiento MD on 08/19/2016 at 15:04 . . 12-lead ECG Sinus at rate of 100 poor R-wave progression across precordium Plan Impression 1. End-stage renal disease with uremia and fluid overload. 2. Poor compliance. 3. Obesity. 4. Sleep apnea. 5. Anemia in chronic kidney disease. 6. Renal osteodystrophy. 7. Calciphylaxis. 8. Substance abuse, amphetamine tested positive. Plan: Per renal standpoint, patient can be discharged home. Next hemodialysis will be performed on Monday at the kidney Center. Sanket Mensah MD Aug 21, 2016 14:09
[2016-08-21] MEDS: ALPRAZolam 0.5 mg Tablet PO PRN ×2 (14:45→20:44)
--- NOTE | 2016-08-21 15:00 | NUR ---
Anxiety Pt c/o having a panic attack when talking with the kidney MD. MD Ibrahim was notified and ordered Xanax .5mg. Pt seemed to be resting comfortably but not wanting her tele and continuous pulse ox. Informed the pt that they were needed for monitoring and the eventually she fell asleep. Continued to monitor.
[2016-08-22] MEDS: Heparin 5,000 Unit/mL Inj SUBQ SCH ×2 (00:41→08:30)
[2016-08-22] MEDS: Acetylcysteine 10% 100 mg/mL 30 mL Inhalation Solution NEB SCH ×2 (02:34→11:15)
--- NOTE | 2016-08-22 02:36 | NUR ---
patient refused mucomyst treatments tonight. Respiratory status stable. No respiratory distress noted.
[2016-08-22 03:59] VITALS: BP 142/80; PULSE 84; RESP 28; O2SAT 96
--- NOTE | 2016-08-22 04:21 | NUR ---
RESP: pt. on 3 significant sleep apnea, desats down to 60's while she holds her breath then back up to upper 90's.
[2016-08-22 04:22] LABS: BASOPHILS % (AUTO) 0.8 % (0-3); EOSINOPHILS % (AUTO) 4.1 % (0-5); MONOCYTES % (AUTO) 11.6 % (4-12); Mean Corpuscular Hemoglobin 27.9 pg (27.0-35.0); Mean Corpuscular Volume 91.7 fL (81-100); NEUTROPHILS % (AUTO) 48.7 % (40-74); Platelet Count 374 bil/L (150-400)
--- NOTE | 2016-08-22 07:28 | PCM.DIMED ---
Discharge Instructions Date of Service Aug 22, 2016 Dates of Hospitalization Aug 19, 2016 at 14:55 Discharge Diagnosis Discharge Diagnosis End-stage renal disease on hemodialysis; obstructive sleep apnea Diet Renal Diet Activity No restrictions Patient Instructions You are advised to attend hemodialysis on Monday as scheduled in [place], or if you move to [place] you should present promptly to a local dialysis center with a packet of information that has been provided. You Should continue all of your current medications. 2 should seek evaluation and treatment for your sleep apnea which is cause of serious cardiac and pulmonary disease. Follow-up plan Contact primary care provider for posthospitalization visit within 1-2 week. Follow-up with dialysis center on usual schedule. Ian Ibrahim MD Aug 22, 2016 07:28
[2016-08-22 08:19] VITALS: BP 141/95; PULSE 84; RESP 18; O2SAT 98
[2016-08-22] MEDS: Vitamin B Complex/Vit C Tablet PO SCH (08:28)
[2016-08-22 09:03] VITALS: PULSE 85
[2016-08-22 10:50] VITALS: BP 134/79; PULSE 91
--- NOTE | 2016-08-22 10:58 | PCM.PNNEPH ---
Subjective Date of Service Aug 22, 2016 Subjective Patient offers no new complaints this morning. She states that she has a past taken to [place] for this afternoon and in light of her history of chronic noncompliance I am unsure as to when her next dialysis will be. I will go ahead and schedule her for short treatment today. Exam Vital Signs Vital Sign - Last Date Time Temp Pulse Resp B/P Pulse Ox O2 Delivery O2 Flow Rate FiO2 08/22/16 09:03 85 08/22/16 08:19 Supplement Oxygen 08/22/16 08:19 36.4 18 141/95 98 3.00 Intake and Output 08/21/16 08/21/16 08/22/16 Cumulative From/Thru 15:00 23:00 07:00 08/19/16 13:23 - 08/22/16 06:49 Intake Total 836 ml 100 ml 1811 ml Output Total 2000 ml 0 ml 9200 ml Balance -2000 ml 836 ml 100 ml -7389 ml Intake Oral 836 ml 100 ml 1811 ml Output Urine Total 0 ml 200 ml Ultrafiltrate 2000 ml 9000 ml # Voids 0 1 # Bowel Movements 2 Exam Lungs showed a few bibasilar rales. Heart was regular and rhythmic with a soft systolic murmur. Abdomen is soft without any tenderness or rebound guarding masses or hepatosplenomegaly. Extremities do not show any evidence of any clubbing cyanosis or edema. Lab and Diagnostics Result Diagram: 08/22/16 0320 08/22/16 0320 X-Rays, CTs and MRIs PROCEDURE: X-RAY CHEST ONE VIEW, PORTABLE ([id number]) IMPRESSION: Limited expiratory chest demonstrating no definite acute cardiopulmonary process. Dictated by: Denzel Kauffman RRA Interpreted: Love Sarmiento MD on 08/19/2016 at 15:04 . . 12-lead ECG Sinus at rate of 100 poor R-wave progression across precordium Plan Impression Impression #1 end-stage renal disease dialysis dependent number to diabetic nephropathy #3 hypertension with hypertensive heart disease and hypertensive nephrosclerosis number for noncompliance Recommendation #1 the patient is to be dialyzed today for 2-1/2 on a Max dialyzer, 2 potassium bath, 400 blood flow, we will try to take 1-2 L of fluid off. She can be discharged following her dialysis treatment. Maximiliano Zhao DO Aug 22, 2016 10:58
--- NOTE | 2016-08-22 13:22 | NUR ---
Dialysis note: 2 hr, 10 min tx off early r/t [facility] bus coming to pick up and delivery driver pt and take to the bus station for trip to [place]. Net UF 2.0 QB 450. Accessed left fistula with 2 BH 15g needles without difficulty. BPs in the 130s. Blood returned, site clamped x 5 min and secured with gauze and tape. Pt somewhat tearful and c/o life giving her difficulty. Report given to primary RN Irene and pt returned to floor stable. Please see DTR for complete record of VS.
--- NOTE | 2016-08-22 14:17 | NUR ---
Social Work Note: Discharge Data& Assessment: EMR reviewed. Per pt is medically ready for discharge. Mariia Sow is a 50 year old female admitted on 07/22/2016 for hyperemia and pulmonary edema. Per pt is medically improved and ready for discharge. SW met with pt at bedside to confirm discharge plan and assess for any unmet needs. Pt stated her plan to travel to [facility] via [employer] bus today at 3:00p.m. Pt explained she is interested in obtaining a walker. PT has not seen pt to recommend walker. Pt has been requiring some assistance from RN in her room for safety. Pt explained she had a FWW that was given to her by a family member but it is in [place]. SW explained the only way that we could get a walker to her prior to her bus ride would be for her boyfriend to warehouse order picker the walker at [facility], the [employer] company here in [place]. SW called [facility] who explained if pt is trying to get the cost of the walker covered by Medicare, they would have to pay the $75 up front for the walker, in case Medicare does not pay. Pt explained she does not have money to pay for the walker. Pt emphasized how important it is to her to make it to her scheduled [employer] bus today at 3:00p.m to get to [place]. Pt explained that she will rely on her boyfriend to keep balance and will look into renting a walker when they get to [place]. DEMETRIA spoke to Kathryn AUGUSTIN at [facility] [place] who confirmed that their office is working on getting pt dialysis care transferred to a kidney center in [place]. [facility] SW also stated that she had arranged a FWW to be picked up at [facility] in [place] by pt for $17. SW reminded pt of this arrangement. Pt denies any other needs. No other discharge needs identified. Plan: Per pt is medically improved and ready to discharge back into the community via POV. Pt and pt boyfriend are catching a bus to [place]. SW reminded pt of the arrangement [facility] SW had put together for pt to obtain a walker at [facility] for $17. Pt denies any other needs. No other discharge needs identified. RORY Aguilera
--- NOTE | 2016-08-22 15:28 | NUR ---
Discharge pt ordered for discharge to community. pt states plans to travel to [place]. discharge instructions and medications reviewed with patient. Pt assisted with dressing, and transported via wheelchair and all belongings to front lobby to meet [employer] bus. pt departed unit at about 1410.
--- NOTE | 2016-08-22 16:37 | PCM.DC.MED ---
Discharge Summary Date of Service Aug 22, 2016 Dates of Hospitalization Date of Hospital Admission Aug 19, 2016 at 14:55 Date of Discharge: Aug 22, 2016 Providers: Admitting Physician: Irene Fagan MD Primary Care Physician: Maximiliano Zhao DO Attending Physician: Ierne Fagan MD Diagnosis at Time of Discharge Diagnosis at Time of Discharge End-stage renal disease on hemodialysis; obstructive sleep apnea Consultations Nephrology, Dr. Mensah Procedures XRay, CTs & MRIs PROCEDURE: X-RAY CHEST ONE VIEW, PORTABLE ([id number]) IMPRESSION: Limited expiratory chest demonstrating no definite acute cardiopulmonary process. Dictated by: Denzel Kauffman RRA Interpreted: Love Sarmiento MD on 08/19/2016 at 15:04 . . ECG 12 Lead Sinus at rate of 100 poor R-wave progression across precordium Brief History History of Present Illness (per admission note): Is a 50-year-old female with history of end-stage renal disease who is on hemodialysis Monday. She apparently has not gone for about 10 days as did not have access unfortunately she also did this similar event occurred earlier this month. She presented to [facility] and was evaluated in the emergency room there. BUN was 109, creatinine 17.6 with a potassium of 7.8 and magnesium was 2.2. Bone and there was noted to be 0.033. Medical it was 25 according to the ER doctor at [place] she did not have any EKG changes. At [place] she was treated with 10 units of IV insulin 1 amp of D50 and albuterol nebulization she was also given calcium gluconate and calcium gluconate drip along with treatment being treated with Kayexalate. She was transferred to [facility] but instead being directly admitted the a ambulance took her into the emergency room and further evaluation was done here at [facility]. Hospital Course # Progressive uremia with hyperkalemia and hyperphosphatemia, acute, present on admission - Proceed with hemodialysis plans per nephrology # Acute respiratory failure, present on admission. Secondary to fluid overload, pulmonary edema related to missed dialysis treatments - Resolving with dialysis # Elevated d-dimer, acute, present on admission - No evidence of acute thrombosis # End stage renal disease with having missed multiple hemodialysis treatments, acute, present on admission - Continues to require unscheduled inpatient dialysis until electrolyte and fluid status is normalized - Explore plans for outpatient dialysis follow-up, especially if patient elects to move to [place] # Obstructive sleep apnea, acute on chronic, present on admission. Patient in the emergency room and during dialysis is noted to have obstructive symptomatology of sleep apnea - Continue CPAP. # Anemia of chronic kidney disease, chronic, present on admission - Further recommendations per nephrology Exam Vital Signs (Last) Date Time Temp Pulse Resp B/P Pulse Ox O2 Delivery O2 Flow Rate FiO2 08/22/16 10:50 91 08/22/16 08:19 Supplement Oxygen 08/22/16 08:19 36.4 18 141/95 98 3.00 Exam General: Obese woman sitting comfortably in bed, no acute distress HEENT: sclerae anicteric, oral mucosa moist Neck: Focal to assess JVD Chest: clear to auscultation Cardiac: S1S2, no murmur Abdomen: BS normal, non-tender Extremities: No pitting edema Neuro: A&O, cranial nerves symmetric, motor and coordination normal Test 08/19/16 13:50 08/19/16 14:34 08/19/16 17:00 08/20/16 04:16 Uric Acid 11.6mg/dL (2.6-7.2) Pro-B-Type Natriuretic Peptide 87883jg/mL (0-249) Urine Color Straw (YELLOW) Urine Appearance Hazy (CLEAR,HAZY) Urine pH 8.0 (5.0-8.0) Urine Specific Pelican 1.015 (1.003-1.035) Urine Protein 30mg/dL (NEG,TRACE) Urine Glucose (UA) 100mg/dL (NEGATIVE) Urine Ketones Tracemg/dL (NEGATIVE) Urine Occult Blood Small (NEGATIVE) Urine Nitrite Negative (NEGATIVE) Urine Bilirubin Negative (NEGATIVE) Urine Urobilinogen Normalmg/dL (NORMAL) Urine Leukocyte Esterase Negative (NEGATIVE) Urine RBC 3-10/hpf (0-2) Urine WBC 0-5/hpf (0-5) Urine Epithelial Cells Occasional/hpf (NONE-MOD) Urine Crystals None seen (NONE SEEN) Urine Bacteria Moderate/hpf (NONE-FEW) Urine Hyaline Casts None/lpf (NONE) Urine Granular Casts None seen (NONE SEEN) Urine Waxy Casts None seen (NONE SEEN) Urine Red Blood Cell Casts None seen (NONE SEEN) Urine White Blood Cell Casts None seen (NONE SEEN) Urine Mucus None seen (None Seen) Urine Trichomonas None seen (NONE SEEN) Urine Yeast None (NONE SEEN) Urinalysis Comment None Urine Culture Reflexed Indicated Hold Urine Received (Received) Urine Opiates Screen Negative Urine Methadone Screen Negative Urine Barbiturates Screen Negative Urine Amphetamines Screen Positive Urine Benzodiazepines Screen Negative Urine Cocaine Metabolite Screen Negative Urine Cannabinoids Screen Negative Phosphorus Level 10.8mg/dL (2.5-4.9) Troponin T 0.034ug/L (0.0-0.011) Procalcitonin 0.78ng/mL (0.00-0.08) Test 08/21/16 04:07 08/22/16 03:20 Magnesium Level 1.9mg/dL (1.6-2.6) White Blood Count 6.6th/mm3 (3.8-10.1) Red Blood Count 3.01mil/mm3 (3.90-5.20) Hemoglobin 8.4g/dL (12.0-15.6) Hematocrit 27.6% (35.0-46.0) Mean Corpuscular Volume 91.7fL (81-100) Mean Corpuscular Hemoglobin 27.9pg (27.0-35.0) Mean Corpuscular Hemoglobin Concent 30.4% (32.0-37.0) Red Cell Distribution Width 15.4% (12.3-15.4) Platelet Count 374bil/L (150-400) Neutrophils (%) (Auto) 48.7% (40-74) Lymphocytes (%) (Auto) 33.9% (14-46) Monocytes (%) (Auto) 11.6% (4-12) Eosinophils (%) (Auto) 4.1% (0-5) Basophils (%) (Auto) 0.8% (0-3) Sodium Level 138mEq/L (134-144) Potassium Level 3.4mEq/L (3.5-5.2) Chloride Level 95mEq/L (97-108) Carbon Dioxide Level 25mmol/L (18-29) Blood Urea Nitrogen 17mg/dL (6-24) Creatinine 5.25mg/dL (0.57-1.00) Estimat Glomerular Filtration Rate 12mL/min (>59) Glucose Level 107mg/dL (60-99) Calcium Level 9.0mg/dL (8.5-10.1) Total Bilirubin 0.2mg/dL (0.0-1.2) Aspartate Amino Transf (AST/SGOT) 18U/L (0-50) Alanine Aminotransferase (ALT/SGPT) 16U/L (0-32) Alkaline Phosphatase 243U/L (25-150) Total Protein 7.1g/dL (6.4-8.4) Albumin 3.3g/dL (3.4-5.0) Discharge Medications Discharge Medications Allopurinol (Allopurinol) 100 Mg Tablet 100 MG PO BID Prescribed by: MELVINA MARTIN MD Alprazolam (Alprazolam) 1 Mg Tablet 3 MG PO MWF prior to dialysis Prescribed by: ZOHRA RIVERA MD Cinacalcet HCl (Sensipar) 60 Mg Tablet 60 MG PO BID Prescribed by: MELVINA MARTIN MD Clonazepam (Klonopin) 1 Mg Tablet 1 MG PO HS Prescribed by: ZOHRA RIVERA MD Folic Acid/Vitamin B Comp W-C (Dialyvite Tablet) 1 Each Tablet 1 EACH PO DAILY ( Reported) Lanthanum Carb Chew (Fosrenol Chew) 750 Mg Chew 750 MG PO TIDWM (Reported) Takes with Renvela Methadone (Methadone) 10 Mg Tab 20 MG PO TID Prescribed by: ZOHRA RIVERA MD Metolazone (Metolazone) 10 Mg Tablet 10 MG PO BIDWM (Reported) Midodrine (Midodrine) 10 Mg Tablet 10 MG PO MWF (Reported) Sevelamer Carbonate (Renvela) 800 Mg Tablet 1,600 MG PO TIDWM Prescribed by: MELVINA MARTIN MD hydrOXYzine Hcl (HydrOXYzine Hcl) 25 Mg Tablet 25 MG PO BID Prescribed by: ZOHRA RIVERA MD As needed Albuterol Sulfate (Ventolin HFA Inhaler) 200 Puff/18 Gm Inhaler 1-2 PUFF INH Q4 PRN PRN For Wheezing (Reported) Omeprazole (Omeprazole) 20 Mg Capsule.dr 20 MG PO BID PRN PRN For Dyspepsia or Heartburn (Reported) Followup Plan Follow-up plan Contact primary care provider for posthospitalization visit within 1-2 week. Follow-up with dialysis center on usual schedule. Discharge Diet: Renal Diet Discharge Activity: No restrictions Patient Instructions You are advised to attend hemodialysis on Monday as scheduled in [place] , or if you move to [place] you should present promptly to a local dialysis center with a packet of information that has been provided. You Should continue all of your current medications. 2 should seek evaluation and treatment for your sleep apnea which is cause of serious cardiac and pulmonary disease. Time spent 35 minutes copies to: Maximiliano Zhao Jeffrey W MD Aug 22, 2016 16:22
== END 2016-08-22 14:19 | disposition home or self-care (01) | DRG 189 ==
LOC: SED 13:10 → EDUNIT# 13:10 → EDBD 13:10 → UNDOADMIN 14:12 → PCC 14:12 → CCU 14:55 → PCC 08-20 00:25
PROVIDERS: ADMIT Specialist; ATTEND Specialist
PROC: 4A033B1 Measurement of Arterial Pressure, Peripheral, Percutaneous Approach (ICD-10-PCS; principal; 2016-08-19)
PROC: 5A1D60Z (ICD-10-PCS; 2016-08-19)
DX: J96.00 Acute respiratory failure, unspecified whether with hypoxia or hypercapnia (principal); N18.6 End stage renal disease; J81.0 Acute pulmonary edema; Z68.41 Body mass index [BMI] 40.0-44.9, adult; N25.81 Secondary hyperparathyroidism of renal origin; E87.2 Acidosis; I13.11 Hypertensive heart and chronic kidney disease without heart failure, with stage 5 chronic kidney disease, or end stage renal disease; E66.01 Morbid (severe) obesity due to excess calories; N28.89 Other specified disorders of kidney and ureter; E87.79 Other fluid overload; Z91.15 Patient's noncompliance with renal dialysis; G47.33 Obstructive sleep apnea (adult) (pediatric); D63.1 Anemia in chronic kidney disease; M10.9 Gout, unspecified; F15.10 Other stimulant abuse, uncomplicated; J45.909 Unspecified asthma, uncomplicated; E87.5 Hyperkalemia; Z79.51 Long term (current) use of inhaled steroids